=== PATIENT | male | born 1990 | race Caucasian/White ===

== ENCOUNTER 2018-04-04 16:19 | Emergency (ER) | payer MEDICAID, SELFPAY ==
[2018-04-04 16:29] VITALS: BP 157/87; PULSE 84; RESP 16; TEMP 36.5; O2SAT 96
--- NOTE | 2018-04-04 16:51 | DI.REPORT_ITS ---
SYMPTOM/DIAGNOSIS: INJURY, LACERATION, ? FX LEFT INDEX FINGER: Three views were obtained. No fracture is seen.
--- NOTE | 2018-04-04 17:19 | ED.GENADUL ---
Disposition Clinical Impression: Laceration of left index finger Disposition: HOME Condition: Good Instructions: Finger Laceration (ED), Care For Your Stitches (ED) Additional Instructions: Please take Tylenol Motrin for pain. Please keep the area dry for the next 24-48 hours. After this he can scrub it gently with soap and water. Please keep it bandaged at all times otherwise the sutures will come undone. Please return here or to a primary care provider whom we are providing for you for removal of your sutures in the next 7-10 days. If you are unable to follow-up with a family doctor please return here for suture removal. If you notice any worsening of your symptoms, or any new symptoms such as redness in your finger, swelling, drainage, vomiting, diarrhea, fever, chills, shortness of breath, chest pain, numbness, weakness, or fainting , please return immediately to the emergency department for reevaluation. Please follow up with your primary care provider as soon as possible for reassessment and reevaluation. As always, it was a pleasure participating in your medical care today. Medical Decision Making - Medical Decision Making This is a pleasant 27-year-old male who presents with laceration from sheet metal. He developed a small 1 cm x 1 cm V-shaped laceration of his left nondominant index finger. His tetanus has been updated here. No evidence of tendon involvement on exam. X-ray demonstrates no evidence of fracture. The patient's hand was irrigated with copious amounts of normal saline, anesthetized with 1% lidocaine 3 cc total, and then scrubbed vigorously with chlorhexidine scrub. No tendon involvement was noted. The area was then sutured with 3 simple interrupted 4-0 nylon sutures. Patient tolerated this well with good wound edge reapproximation and excellent hemostasis. With a negative x-ray, laceration repair, no signs of fracture I feel he can be safely discharged home. We discussed red flags which returned the patient understands. I have extensively reviewed the treatment plan and discharge instructions with the patient. I have addressed all patient concerns at this time. The patient was made aware of what symptoms to monitor for that would warrant a return to the emergency department. Discussed the plan with the patient, they demonstrate verbal understanding and agreement with our assessment and plan at this time. History of Present Illness - General Chief complaint: Laceration Stated complaint: BLEEDING,CUT PART OF FINGER OFF Time Seen by Provider: 04/04/18 16:50 - History of Present Illness Initial comments: This is a 27-year-old male with no past medical history whose tetanus is not up-to-date who presents for laceration of the hand. Patient is right-hand dominant. He was working on a roof when the wind caught some sheet metal and he put his left hand in the way to protect his face sheet metal hit his left index finger and caused a small laceration. Patient immediately came to the ER for evaluation. He had pain in the proximal component of his phalanges, aside for the laceration itself is no other complaint. He has been able to move it well without any difficulty for both flexion and extension. He denies any radiation of the pain, any pain in his wrist or arm. He does have a history of multiple scrapes, cuts, and lacerations on the hand which has led to a lack of sensation on the lateral aspect of the index finger as well as the tip of the index finger. He denies any new numbness or tingling aside for this chronic lack of sensation. Patient denies any IV or illicit drug use currently, he denies any significant recent surgeries, he has no other complaints at this time. He denies a pertinent family history. - Related Data Albuterol [Proair Hfa] 2 puff IH PRN PRN 09/18/13 Ibuprofen 600 mg PO QID PRN #20 tablet 02/06/18 Methadone Liquid [Dolophine Liquid] 77 mg PO DAILY 02/06/18 Allergies Allergy/AdvReac Type Severity Reaction Status Date / Time No Known Allergies Allergy Unverified 04/04/18 16:33 Review of Systems Other: 10 point review of systems was performed, pertinent positives and negatives are noted in the history of present illness. Past Medical History - Past Medical History ADHD, IV drug use Surgical history: herniorraphy - Social History Drug use: IVDA General Exam - Other Other exam information: 1.Const: Well-nourished, Well-developed, appearing stated age 2.Eyes: PERRL, no conjunctival injection, and symmetrical lids. 3.ENT: Atraumatic external nose and ears. Moist MM. Neck: Symmetric, trachea midline, No thyromegaly. 4.CVS: +S1/S2, No murmurs or gallops. Peripheral pulses 2+ and equal in all extremities. Brisk capillary refill in all extremities. 5.RESP: Unlabored respiratory effort. Clear to auscultation bilaterally. No wheezes rales or rhonchi 6.GI: Soft, Nontender/Nondistended, No hepatosplenomegaly. No guarding or rebound. 7.MSK: Normocephalic/Atraumatic, Extremities w/o deformity or ttp No cyanosis or clubbing, Normal movement of all extremities 8.Skin: Patient demonstrates a small V-shaped laceration with each arm of the laceration being 1 cm. It is located on the dorsal aspect of the index finger on the left hand. The patient is able to flex and extend the finger well at all components of the phalanges and metacarpals. With wound irrigation there is no evidence of tendon involvement. Mild tenderness over the metacarpal phalangeal joint. Sensation does appear intact on the medial aspect of the index finger, but no evidence on the lateral or the tip. The patient states that this is chronic from his old cuts. Physical exam does demonstrate evidence of scars over the areas in which the nerve would normally lie. No other abnormalities. Brisk capillary refill. 9.Neuro: human resources operations manager II-XII grossly intact. Sensation grossly intact, no focal neurologic deficits. 10.Psych: (AAO) x3. Appropriate mood and affect Course Vital Signs - 24 hr 04/04/18 16:29 Temperature 36.5 C Pulse 84 Respiratory 16 Rate Blood Pressure 157/87 Pulse Oximetry 96
--- NOTE | 2018-04-04 17:43 | DI.VRAD_ITS ---
EXAM: XR Left Finger(s), 2 or More Views CLINICAL HISTORY: 27 years old, male; Signs and symptoms; Other: Left index, concern for FX TECHNIQUE: Frontal, lateral and oblique views of finger(s) of the left hand. COMPARISON: CR - LEFT HAND LIMITED 02/11/2013 10:28 PM FINDINGS: Bones/joints: Probable nutrient vessel foramen coursing longitudinally along the volar cortex of the distal phalanx seen on the lateral examination. Correlate clinically to completely exclude a nondisplaced fracture. No displaced fracture or dislocation identified. Soft tissues: Swelling of the index finger soft tissues. No radiopaque foreign body. IMPRESSION: 1. No displaced fracture or dislocation. 2. Probable nutrient vessel foramen coursing longitudinally along the volar cortex of the distal phalanx seen on the lateral examination. Correlate clinically to completely exclude a nondisplaced fracture. Dictated and Authenticated by: Al Villegas MD. Ordering:CHARLES ATKINSON MD
--- NOTE | 2018-04-06 13:43 | PDOC.ERCMPRO ---
Care Management Progress Note 04/06-Patient does not need an ED f/u. Needs to establish primary care. Dr. Kellogg account retention representative. Referral faxed to MARYAM altamirano.
--- NOTE | 2018-04-06 13:45 | CMPROGNOTE_ITS ---
Care Management Progress Note 04/06-Patient does not need an ED f/u. Needs to establish primary care. Dr. Kellogg music rehabilitation therapist. Referral faxed to MARYAM altamirano.
--- NOTE | 2018-04-06 14:04 | PDOC.ERCMPRO ---
Care Management Progress Note Kishan is being admitted to the floor. Discussed with Mildred, Clinical Coordinator that Kishan has been appropriate and that he needs his phone and etcher photoengraving to continue with his disability. Kishan has been appropriate in the ED. Taking his medications and eating his meals. Kishan has been easily redirected and he does have licensed one on one supervision. Care Plan Kishan Suresh 04/06/18 Involuntary Admission (EE) 1. Suicide Precautions 2. Patient can remain in personal clothing 3. No other Personal belongings in room 4. Please follow the policy on the admitted behavioral health patient 5. Patient may have cell phone in room, and phone etcher photoengraving when needed 6. No visitors at this time 7. Finger foods only. No utensils at all 8. Comfort bath system for hygiene 9. Supervised bathroom privileges 10. May have television 11. One on one supervision by a VENEER MATCHER, ASSISTANT COMMISSIONER, groundwater monitoring technician. Please adhere to this care plan. If any changes, questions, or issues, please notify [facility] completion engineer Backhaul Driver at [phone], [facility] Supervisor Warping Department at [phone]. Any changes to care plan, must have huddle and new care plan must be written.
--- NOTE | 2018-04-06 14:23 | CMPROGNOTE_ITS ---
Care Management Progress Note Kishan is being admitted to the floor. Discussed with Mildred, Clinical Coordinator that Kishan has been appropriate and that he needs his phone and terminal makeup operator to continue with his disability. Kishan has been appropriate in the ED. Taking his medications and eating his meals. Kishan has been easily redirected and he does have licensed one on one supervision. Care Plan Kishan Suresh 04/06/18 Involuntary Admission (EE) 1. Suicide Precautions 2. Patient can remain in personal clothing 3. No other Personal belongings in room 4. Please follow the policy on the admitted behavioral health patient 5. Patient may have cell phone in room, and phone terminal makeup operator when needed 6. No visitors at this time 7. Finger foods only. No utensils at all 8. Comfort bath system for hygiene 9. Supervised bathroom privileges 10. May have television 11. One on one supervision by a FLYING SHEAR OPERATOR, WEIGHER AND CRUSHER, solid waste collection worker. Please adhere to this care plan. If any changes, questions, or issues, please notify [facility] directional driller Business Development Engineer at [phone], [facility] Powersaw Supervisor at [phone]. Any changes to care plan, must have huddle and new care plan must be written.
== END 2018-04-04 17:44 | disposition home or self-care (01) ==
LOC: ER 06-17 18:18
PROVIDERS: Emergency Provider Student in an Organized Health Care Education/Training Program
DX: S61.211A Laceration without foreign body of left index finger without damage to nail, initial encounter (principal); W26.8XXA Contact with other sharp object(s), not elsewhere classified, initial encounter
CPT/HCPCS: 12001; 90471; 73140

== ENCOUNTER 2018-06-10 22:13 | Emergency (ER) | payer MEDICAID, SELFPAY ==
[2018-06-10 22:20] VITALS: BP 166/94; PULSE 76; RESP 20; TEMP 37.1; O2SAT 96
--- NOTE | 2018-06-10 22:44 | W.ED.GENAD ---
Discharge Plan Disposition Patient Disposition: HOME Condition: Improving Discharge Details Chief Complaint: FacialProb Clinical Impression: Odontalgia Primary Care Provider: NONE,NONE ED Provider: Toi Elkins Home Meds and New Rx's Prescriptions: New penicillin V potassium 500 mg tablet 500 mg PO TID 10 Days Qty: 30 RF: 0 Continue albuterol sulfate [ProAir HFA] 200 PUFF HFA aerosol inhaler 2 puff Inhalation PRN PRNRF: 0 ibuprofen 600 MG tablet 800 mg PO QID PRN (Reason: Pain) RF: 0 methadone 10 MG/ML concentrate 77 mg PO DAILY RF: 0 Discharge Instructions Instructions: Toothache (ED) Additional Instructions: May use Tylenol and/or ibuprofen as needed for pain. You are given a single Percocet in the emergency department for severe pain. Take penicillin as prescribed. Follow-up with dentistry, see enclosed references Medical Decision Making 27-year-old male with numerous dental caries presents with acute right odontalgia. He is tender to percussion of tooth #2 and 3. No evidence of fluctuant mass or facial swelling. Patient consented for received superior alveolar dental block with some improvement. Given a single Percocet for severe pain and will place him on a course of penicillin with outpatient dentistry follow-up HPI General Mode of arrival: ambulatory. Date/Time Provider Initiated Documentation: 06/10/18 22:35. Limitations to Documentation: no limitations. Information obtained by: patient. History of Present Illness described as moderate and severe, Quality is described as aching, and is localized to the mouth and right. Patient reports no radiation. Patient started experiencing this hour(s) and it has been constant. No relieving factors improve symptom(s), No exacerbating factors reported . Patient notes no other symptoms.. Related Data Home Medications Medication Instructions Recorded Confirmed albuterol sulfate [ProAir HFA] 2 puff INHALATION PRN PRN 09/18/13 06/10/18 methadone 77 mg PO DAILY 02/06/18 06/10/18 ibuprofen 800 mg PO QID PRN 06/10/18 06/10/18 penicillin V potassium 500 mg PO TID 10 Days #30 tab 06/10/18 Previous Rx's Medication Instructions Recorded penicillin V potassium 500 mg PO TID 10 Days #30 tab 06/10/18 Allergies Allergy/AdvReac Type Severity Reaction Status Date / Time No Known Allergies Allergy Unverified 06/10/18 22:23 General Stated Complaint: FacialProb JAVIER: 3 Review of Systems Review of Systems 6 systems reviewed and otherwise neg PFSH Social History Smoking/Tobacco Use Status: Current every day Exam Narrative Exam Narrative: GEN: awake, alert, oriented 3. Pleasant, well groomed, interactive, anxious. HEAD: Normocephalic, atraumatic ENT: Mucous membranes moist, oropharynx with numerous dental caries, tenderness to percussion of teeth #2 and 3. NECK: Full ROM, no GINI, no menigismus CHEST/RESP: Nontender, clear to auscultation bilateral, no wheeze/rhonchi/rales CARDIOVASCULAR: RRR, no murmur, rub gómez. 2+ Rad pulse bilateral Neuro: Grossly normal neurologic exam, conversant, interactive. Psych: Speech fluent, thoughts congruent, affect normal Course Vital Signs Temperature 37.1 C 06/10/18 22:20 Pulse 76 06/10/18 22:20 Respiratory Rate 20 06/10/18 22:20 Blood Pressure 166/94 H 06/10/18 22:20 Pulse Oximetry 96 06/10/18 22:20 Temperature 37.1 C 06/10/18 22:20 Temperature Source Temporal Artery Scan 06/10/18 22:20 Pulse 76 06/10/18 22:20 Respiratory Rate 20 06/10/18 22:20 Respiratory Effort Non-Labored 06/10/18 22:20 Blood Pressure 166/94 H 06/10/18 22:20 Pulse Oximetry 96 06/10/18 22:20 Oxygen Delivery Method Room Air 06/10/18 22:20 Oxygen Flow Rate 0 06/10/18 22:20 Pain Level 10 06/10/18 22:24 Procedures Other Description: Right superior alveolar dental block
--- NOTE | 2018-06-10 22:48 | ED.GENADUL_ITS ---
Discharge Plan Disposition Patient Disposition: HOME Condition: Improving Discharge Details Chief Complaint: FacialProb Clinical Impression: Odontalgia Primary Care Provider: NONE,NONE ED Provider: Toi Elkins Home Meds and New Rx's Prescriptions: New penicillin V potassium 500 mg tablet 500 mg PO TID 10 Days Qty: 30 RF: 0 Continue albuterol sulfate [ProAir HFA] 200 PUFF HFA aerosol inhaler 2 puff Inhalation PRN PRNRF: 0 ibuprofen 600 MG tablet 800 mg PO QID PRN (Reason: Pain) RF: 0 methadone 10 MG/ML concentrate 77 mg PO DAILY RF: 0 Discharge Instructions Instructions: Toothache (ED) Additional Instructions: May use Tylenol and/or ibuprofen as needed for pain. You are given a single Percocet in the emergency department for severe pain. Take penicillin as prescribed. Follow-up with dentistry, see enclosed references Medical Decision Making 27-year-old male with numerous dental caries presents with acute right odontalgia. He is tender to percussion of tooth #2 and 3. No evidence of fluctuant mass or facial swelling. Patient consented for received superior alveolar dental block with some improvement. Given a single Percocet for severe pain and will place him on a course of penicillin with outpatient dentistry follow-up HPI General Mode of arrival: ambulatory . Date/Time Provider Initiated Documentation: 06/10/18 22:35 . Limitations to Documentation: no limitations . Information obtained by: patient . History of Present Illness described as moderate and severe, Quality is described as aching, and is localized to the mouth and right. Patient reports no radiation. Patient started experiencing this hour(s) and it has been constant. No relieving factors improve symptom(s), No exacerbating factors reported . Patient notes no other symptoms.. Related Data Home Medications Medication Instructions Recorded Confirmed albuterol sulfate [ProAir HFA] 2 puff INHALATION PRN PRN 09/18/13 06/10/18 methadone 77 mg PO DAILY 02/06/18 06/10/18 ibuprofen 800 mg PO QID PRN 06/10/18 06/10/18 penicillin V potassium 500 mg PO TID 10 Days #30 tab 06/10/18 Previous Rx's Medication Instructions Recorded penicillin V potassium 500 mg PO TID 10 Days #30 tab 06/10/18 Allergies Allergy/AdvReac Type Severity Reaction Status Date / Time No Known Allergies Allergy Unverified 06/10/18 22:23 General Stated Complaint: FacialProb JAVIER: 3 Review of Systems Review of Systems 6 systems reviewed and otherwise neg PFSH Social History Smoking/Tobacco Use Status: Current every day Exam Narrative Exam Narrative: GEN: awake, alert, oriented 3. Pleasant, well groomed, interactive, anxious. HEAD: Normocephalic, atraumatic ENT: Mucous membranes moist, oropharynx with numerous dental caries, tenderness to percussion of teeth #2 and 3. NECK: Full ROM, no GINI, no menigismus CHEST/RESP: Nontender, clear to auscultation bilateral, no wheeze/rhonchi/rales CARDIOVASCULAR: RRR, no murmur, rub gómez. 2+ Rad pulse bilateral Neuro: Grossly normal neurologic exam, conversant, interactive. Psych: Speech fluent, thoughts congruent, affect normal Course Vital Signs Temperature 37.1 C 06/10/18 22:20 Pulse 76 06/10/18 22:20 Respiratory Rate 20 06/10/18 22:20 Blood Pressure 166/94 H 06/10/18 22:20 Pulse Oximetry 96 06/10/18 22:20 Temperature 37.1 C 06/10/18 22:20 Temperature Source Temporal Artery Scan 06/10/18 22:20 Pulse 76 06/10/18 22:20 Respiratory Rate 20 06/10/18 22:20 Respiratory Effort Non-Labored 06/10/18 22:20 Blood Pressure 166/94 H 06/10/18 22:20 Pulse Oximetry 96 06/10/18 22:20 Oxygen Delivery Method Room Air 06/10/18 22:20 Oxygen Flow Rate 0 06/10/18 22:20 Pain Level 10 06/10/18 22:24 Procedures Other Description: Right superior alveolar dental block
[2018-06-10] MEDS: oxyCODONE 5 mg/Acetaminophen 325 mg TAB 1 TAB PO (22:49)
[2018-06-10] MEDS: Penicillin V POTASSIUM 500 MG TAB 1000 MG PO (22:49)
== END 2018-06-10 22:54 | disposition home or self-care (01) ==
LOC: ER 22:56
PROVIDERS: Emergency Provider Emergency Medicine
DX: R68.84 Jaw pain (principal)
CPT/HCPCS: 64402

== ENCOUNTER 2018-09-17 08:55 | Emergency (ER) | payer MEDICAID, SELFPAY ==
[2018-09-17 09:04] VITALS: BP 147/65; PULSE 66; RESP 16; TEMP 37.3; O2SAT 97
--- NOTE | 2018-09-17 09:14 | W.ED.GENAD ---
Discharge Plan Disposition Patient Disposition: HOME Condition: Stable Discharge Details Chief Complaint: DentalOral Clinical Impression: Odontalgia Primary Care Provider: None,None ED Provider: Toi Elkins Home Meds and New Rx's Prescriptions: New penicillin V potassium 500 mg tablet 500 mg PO TID 10 Days Qty: 30 RF: 0 Continued ProAir HFA 200 PUFF HFA aerosol inhaler 2 puff Inhalation PRN PRNRF: 0 ibuprofen 600 MG tablet 400 mg PO QID PRN (Reason: Pain) RF: 0 methadone 10 MG/ML concentrate 78 mg PO DAILY RF: 0 acetaminophen [Tylenol Extra Strength] 500 mg Tablet 500 mg PO PRN PRNRF: 0 Discharge Instructions Instructions: Toothache (ED) Additional Instructions: Follow-up with dentistry as you have planned. I have included extra dental resources for you. Return for swelling, fever, any other acute concerns. Medical Decision Making 27-year-old male presents with right upper molar pain and history of dental caries with plan to follow-up with dentistry. He does not have evidence of fluctuant abscess. I will place him on a course of penicillin he understands he needs to follow-up with dentistry. Return precautions to the ER discussed HPI General Mode of arrival: ambulatory. Date/Time Provider Initiated Documentation: 09/17/18 09:06. Limitations to Documentation: no limitations. Information obtained by: patient. History of Present Illness 27 year old M presents to the emergency department with the chief complaint of Right first molar pain over 2 days, described as moderate and similar to prior episodes, Quality is described as aching, and is localized to the mouth and right. Patient reports no radiation. Patient started experiencing this day(s) and it has been constant. No relieving factors improve symptom(s), No exacerbating factors reported . Patient notes no other symptoms.. Patient did receive the following treatments prior to arrival, none Related Data Home Medications Medication Instructions Recorded Confirmed ProAir HFA 2 puff INHALATION PRN PRN 09/18/13 09/17/18 methadone 78 mg PO DAILY 02/06/18 09/17/18 ibuprofen 400 mg PO QID PRN 06/10/18 09/17/18 acetaminophen [Tylenol Extra 500 mg PO PRN PRN 09/17/18 09/17/18 Strength] penicillin V potassium 500 mg PO TID 10 Days #30 tab 09/17/18 Previous Rx's Medication Instructions Recorded penicillin V potassium 500 mg PO TID 10 Days #30 tab 09/17/18 Allergies Allergy/AdvReac Type Severity Reaction Status Date / Time No Known Allergies Allergy Unverified 09/17/18 09:08 General Stated Complaint: DentalOral JAVIER: 4 Review of Systems Review of Systems For systems reviewed and otherwise neg [facility] Social History Smoking/Tobacco Use Status: Current every day Exam Narrative Exam Narrative: GEN: awake, alert, oriented 3. Pleasant, well groomed, interactive. HEAD: Normocephalic, atraumatic ENT: Mucous membranes moist, oropharynx with numerous dental caries, erosions of right upper first molar and tenderness to percussion without surrounding lingual or buccal fluctuance, tympanic membranes and external ear exam unremarkable EYES: PERRL, EOMI NECK: Full ROM, no GINI, no menigismus CHEST/RESP: Nontender, clear to auscultation bilateral, no wheeze/rhonchi/rales CARDIOVASCULAR: RRR, no murmur, rub gómez. 2+ Rad pulse bilateral Neuro: Grossly normal neurologic exam, conversant, interactive. Psych: Speech fluent, thoughts congruent, affect normal Course Vital Signs Temperature 37.3 C 09/17/18 09:04 Pulse 66 09/17/18 09:04 Respiratory Rate 16 09/17/18 09:04 Blood Pressure 147/65 H 09/17/18 09:04 Pulse Oximetry 97 09/17/18 09:04 Temperature 37.3 C 09/17/18 09:04 Temperature Source Skin 09/17/18 09:04 Pulse 66 09/17/18 09:04 Respiratory Rate 16 09/17/18 09:04 Respiratory Effort 09/17/18 09:10 Blood Pressure 147/65 H 09/17/18 09:04 Blood Pressure Position Sitting 09/17/18 09:04 Pulse Oximetry 97 09/17/18 09:04 Oxygen Delivery Method Room Air 09/17/18 09:04 Oxygen Flow Rate 0 09/17/18 09:04 Pain Level 6 09/17/18 09:04
--- NOTE | 2018-09-18 09:38 | PDOC.ERCMPRO ---
Care Management Progress Note /-Dr. Elkins requested assistance with a dentistry f/u for recurring dental infections as soon as possible. This CM tried calling the patient multiple times and the number on file is not a good number.
== END 2018-09-17 09:33 | disposition home or self-care (01) ==
LOC: ER 09:23
PROVIDERS: Emergency Provider Emergency Medicine
DX: R68.84 Jaw pain (principal)
CPT/HCPCS: 99283

== ENCOUNTER 2018-09-20 10:28 | Emergency (ER) | payer MEDICAID, SELFPAY ==
[2018-09-20 10:36] VITALS: BP 135/89; PULSE 95; RESP 20; TEMP 36.8
--- NOTE | 2018-09-20 10:54 | ED.GENADUL_ITS ---
Discharge Plan Disposition Patient Disposition: HOME Condition: Good Discharge Details Chief Complaint: DentalOral Clinical Impression: Pain, dental Primary Care Provider: None,None ED Provider: Varun Morales Home Meds and New Rx's Prescriptions: New amoxicillin-pot clavulanate [Augmentin] 875-125 mg tablet 1 tab PO BID Qty: 14 RF: 0 Discontinued penicillin V potassium 500 mg tablet 500 mg PO TID 10 Days Qty: 30 RF: 0 No Action ProAir HFA 200 PUFF HFA aerosol inhaler 2 puff Inhalation PRN PRNRF: 0 ibuprofen 600 MG tablet 400 mg PO QID PRN (Reason: Pain) RF: 0 methadone 10 MG/ML concentrate 78 mg PO DAILY RF: 0 acetaminophen [Tylenol Extra Strength] 500 mg Tablet 500 mg PO PRN PRNRF: 0 Discharge Instructions Instructions: Toothache (ED) Additional Instructions: Please follow-up with your dentist as directed. Please take 1000 mg of Tylenol every 6 hours, and 800 mg of ibuprofen every 6 hours. Please stop taking the penicillin and take the new antibiotic as directed. if you notice any worsening of your symptoms, or any new symptoms such as vomiting, diarrhea, fever, chills, shortness of breath, chest pain, numbness, weakness, or fainting , please return immediately to the emergency department for reevaluation. Please follow up with your primary care provider as soon as possible for reassessment and reevaluation. As always, it was a pleasure participating in your medical care today. Discharge Data Discharge Date/Time-TO BE ENTERED AT DEPARTURE: 09/20/18 11:10 Medical Decision Making This is a pleasant 27-year-old male with a history of notable dental caries and methadone use who presents for right upper dental pain. He was seen here 3 days ago, no evidence of abscess N, refused dental block, and was started on penicillin. He has not yet followed up with his dentist. His pain is persisted and slightly worsened. Physical exam demonstrates reassuring vital signs, no evidence of abscess, no evidence of trismus, no signs of meningitis clinically. We will advance the patient's antibiotic coverage to Augmentin, he is still refusing dental block at this time. Will prescribe maximum doses of Tylenol and Motrin for home use. I also made it clear that the definitive management is dental care, the patient understands. I have extensively reviewed the treatment plan and discharge instructions with the patient and their family. I have addressed all patient concerns at this time. The patient and family was made aware of what symptoms to monitor for that would warrant a return to the emergency department. Discussed the plan with the patient and family, they demonstrate verbal understanding and agreement with our assessment and plan at this time. HPI General Date/Time Provider Initiated Documentation: 09/20/18 10:43 . HPI Narrative: This is a 27-year-old male with a past medical history of dental caries, methadone use, who presents today for evaluation of dental pain. The patient states that for the last 3 days he has had tooth pain, worse on the top right. 3 days ago he was seen and assessed, no evidence of abscess at that time, he was started on penicillin with instructions for dental follow-up. He refused a dental block at that time. He states that he has been taking the antibiotic but the pain is persisted and slightly worsened. It is in the top right area of his teeth, however he does feel some associated pain in both of his jaws now. He is able to still eat and drink well. He is taking Tylenol Motrin at home. He has contacted some dental offices but does not have a follow-up appointment yet. He denies any discharge, headache, neck pain, or any other complaints at this time. No other modifying factors. He denies current IV or illicit drug use or recent surgeries Related Data Home Medications Medication Instructions Recorded Confirmed ProAir HFA 2 puff INHALATION PRN PRN 09/18/13 09/20/18 methadone 78 mg PO DAILY 02/06/18 09/20/18 ibuprofen 400 mg PO QID PRN 06/10/18 09/20/18 acetaminophen [Tylenol Extra 500 mg PO PRN PRN 09/17/18 09/20/18 Strength] amoxicillin-pot clavulanate 1 tab PO BID #14 tab 09/20/18 [Augmentin] Previous Rx's Medication Instructions Recorded amoxicillin-pot clavulanate 1 tab PO BID #14 tab 09/20/18 [Augmentin] Allergies Allergy/AdvReac Type Severity Reaction Status Date / Time No Known Allergies Allergy Unverified 09/17/18 09:08 General Stated Complaint: DentalOral JAVIER: 4 Review of Systems Review of Systems All systems reviewed & are unremarkable except as noted in HPI and below PFSH Social History Smoking/Tobacco Use Status: Current every day Exam Narrative Exam Narrative: 1.Const: Well-nourished, Well-developed, appearing stated age 2.Eyes: PERRL, no conjunctival injection, and symmetrical lids. 3.ENT: Atraumatic external nose and ears. Moist MM. Neck: Symmetric, trachea midline, No thyromegaly. Patient demonstrates good movement of cervical neck. There is no nuchal rigidity, no nuchal tenderness. Patient is able to flex the neck without any difficulty or significant pain. Negative Kernig's and Brudzinski sign. Notable dental caries throughout, no evidence of periapical or dental abscess on exam. No significant swelling. Jaw closes well, no signs of trismus. Minimal tenderness over TMJ joint bilaterally. 4.CVS: +S1/S2, No murmurs or gallops. Peripheral pulses 2+ and equal in all extremities. Brisk capillary refill in all extremities. 5.RESP: Unlabored respiratory effort. Clear to auscultation bilaterally. No wheezes rales or rhonchi 6.GI: Soft, Nontender/Nondistended, No hepatosplenomegaly. No guarding or rebound. 7.MSK: Normocephalic/Atraumatic, Extremities w/o deformity or ttp No cyanosis or clubbing, Normal movement of all extremities 8.Skin: Warm, Dry. No rashes or lesions. 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 Sensation grossly intact, no focal neurologic deficits. 10.Psych: (AAO) x3. Appropriate mood and affect Course Vital Signs Temperature 36.8 C 09/20/18 10:36 Pulse 95 H 09/20/18 10:36 Respiratory Rate 09/20/18 10:36 Blood Pressure 135/89 09/20/18 10:36 Temperature 36.8 C 09/20/18 10:36 Temperature Source Temporal Artery Scan 09/20/18 10:36 Pulse 95 H 09/20/18 10:36 Respiratory Rate 20 09/20/18 10:36 Respiratory Effort Non-Labored 09/20/18 10:36 Blood Pressure 135/89 09/20/18 10:36 Oxygen Delivery Method Room Air 09/20/18 10:36 Oxygen Flow Rate 0 02/06/19 10:36 Pain Level 10 09/20/18 10:36
--- NOTE | 2018-09-20 13:40 | PDOC.ERCMPRO ---
Care Management Progress Note 09/20-Varun was here yesterday for dental. Unable to reach him as his cell phone has been turned off. He gave me his girlfriends number, to add to chart. Varun has not contacted a dentist yet. He does not have a PCP. Discussed local practices and he is going to go over to [facility] so he can be established there. Varun will reach out to [facility] as they have a sliding scale.
--- NOTE | 2018-09-20 13:44 | CMPROGNOTE_ITS ---
Care Management Progress Note 09/20-Varun was here yesterday for dental. Unable to reach him as his cell phone has been turned off. He gave me his girlfriends number, to add to chart. Varun has not contacted a dentist yet. He does not have a PCP. Discussed local practices and he is going to go over to [facility] so he can be established there. Varun will reach out to [facility] as they have a sliding scale.
== END 2018-09-20 11:10 | disposition home or self-care (01) ==
PROVIDERS: Emergency Provider Student in an Organized Health Care Education/Training Program
DX: K08.89 Other specified disorders of teeth and supporting structures (principal)
CPT/HCPCS: 99283

== ENCOUNTER 2018-10-02 06:54 | Emergency (ER) | payer MEDICAID, SELFPAY ==
[2018-10-02 07:01] VITALS: BP 146/71; PULSE 73; RESP 16; TEMP 37.2; O2SAT 97
--- NOTE | 2018-10-02 07:15 | ED.GENADUL_ITS ---
Medical Decision Making This is a 27-year-old male who presents for evaluation of left upper dental pain and mild dysuria. He has a history of severe dental caries, he has a scheduled dental appointment later this week. He was seen here roughly 2 weeks ago. Started on Augmentin for right upper dental pain, his symptoms resolved with the antibiotic. He has been taking Tylenol and Motrin. He is on methadone. Physical exam demonstrates no evidence of new abscess on the left, no trismus or signs of airway compromise. No significant swelling. I do think it is reasonable to start the antibiotic Augmentin again for this new left upper dental pain. For his dysuria it is been present for the last few weeks. He denies any history of STDs. No evidence of hematuria, or urethral discharge on exam. No testicular tenderness. Patient does not want any prophylactic treatment for gonorrhea or chlamydia. We will evaluate for signs of infection on UA. Will start Augmentin for his dental pain. Will recommend continue Tylenol Motrin. The patient is refusing a dental block for pain control at this time. HPI General Date/Time Provider Initiated Documentation: 10/02/18 07:04 . HPI Narrative: This is a 27-year-old male with a past medical history of hepatitis C, poor dentition, methadone use, and history of acute drug abuse in the past, who presents today for dental pain. Patient has a history of dental caries and dental infections. He was actually here roughly 1-2 weeks ago for the same complaint except is in the right teeth. He took Augmentin as directed and his pain resolved. He has a scheduled dental appointment later this week. Patient has states that he has left upper dental pain. He has been taking Tylenol and Motrin with no significant improvement. He denies any fever, chills, jaw pain, difficulty eating. Patient does also admit to some mild dysuria and increased urinary frequency for the last 3-4 weeks. He denies any flank pain, fever, chills, nausea, vomiting, diarrhea.. He does admit to a previous right inguinal surgical repair with mesh, but denies any significant or severe pain there. Patient denies any other complaints, penile discharge, testicular pain or other complaints. He denies any history of STDs Related Data Home Medications Medication Instructions Recorded Confirmed ProAir HFA 2 puff INHALATION PRN PRN 09/18/13 10/02/18 methadone 78 mg PO DAILY 02/06/18 10/02/18 ibuprofen 800 mg PO QID PRN 06/10/18 10/02/18 acetaminophen [Tylenol Extra 500 mg PO PRN PRN 09/17/18 10/02/18 Strength] amoxicillin-pot clavulanate 1 tab PO BID #14 tab 09/20/18 10/02/18 [Augmentin] amoxicillin-pot clavulanate 1 tab PO BID #20 tab 10/02/18 [Augmentin] Previous Rx's Medication Instructions Recorded amoxicillin-pot clavulanate 1 tab PO BID #14 tab 09/20/18 [Augmentin] amoxicillin-pot clavulanate 1 tab PO BID #20 tab 10/02/18 [Augmentin] Allergies Allergy/AdvReac Type Severity Reaction Status Date / Time No Known Allergies Allergy Unverified 10/02/18 07:09 General Stated Complaint: DentalOral JAVIER: 4 Review of Systems Review of Systems All systems reviewed & are unremarkable except as noted in HPI and below PFSH Social History Smoking and Tabacco status: Current every day Exam Narrative Exam Narrative: 1.Const: Well-nourished, Well-developed, appearing stated age 2.Eyes: PERRL, no conjunctival injection, and symmetrical lids. 3.ENT: Atraumatic external nose and ears. Moist MM. Neck: Symmetric, trachea midline, No thyromegaly. Exam demonstrates no significant swelling of his teeth or gums. Notable dental caries throughout, no evidence of dental abscess. No trismus. No difficulty swallowing, no signs of airway compromise. 4.CVS: +S1/S2, No murmurs or gallops. Peripheral pulses 2+ and equal in all extremities. Brisk capillary refill in all extremities. 5.RESP: Unlabored respiratory effort. Clear to auscultation bilaterally. No wheezes rales or rhonchi 6.GI: Soft, Nontender/Nondistended, No hepatosplenomegaly. No guarding or rebound. Genital exam demonstrates normally descended testicles, circumcised penis, no urethral discharge. No penile shaft tenderness. Normal cremasteric reflex bilaterally 7.MSK: Normocephalic/Atraumatic, Extremities w/o deformity or ttp No cyanosis or clubbing, Normal movement of all extremities 8.Skin: Warm, Dry. No rashes or lesions. 9.Neuro: lockstitch cup setter II-XII grossly intact. Sensation grossly intact, no focal neurologic deficits. 10.Psych: (AAO) x3. Appropriate mood and affect Course Vital Signs Temperature 37.2 C 10/02/18 07:01 Pulse 73 10/02/18 07:01 Respiratory Rate 16 10/02/18 07:01 Blood Pressure 146/71 H 10/02/18 07:01 Pulse Oximetry 97 10/02/18 07:01 Temperature 37.2 C 10/02/18 07:01 Temperature Source Temporal Artery Scan 10/02/18 07:01 Pulse 73 10/02/18 07:01 Respiratory Rate 16 10/02/18 07:01 Respiratory Effort Non-Labored 10/02/18 07:05 Blood Pressure 146/71 H 10/02/18 07:01 Blood Pressure Position Sitting 10/02/18 07:01 Pulse Oximetry 97 10/02/18 07:01 Oxygen Delivery Method Room Air 10/02/18 07:01 Oxygen Flow Rate 0 10/02/18 07:01 Pain Level 6 10/02/18 07:07
[2018-10-02 07:29] LABS: Bilirubin Negative (Negative); Blood Negative (Negative); Clarity Clear; Glucose Negative (Negative); Ketones Negative (Negative); Leukocyte Esterase Negative (Negative); Nitrite Negative (Negative); Specific Gravity 1.015 (1.005-1.025); Urobilinogen 0.2 EU/dL (Up TO 0.2)
[2018-10-02 08:15] VITALS: TEMP 36.7
[2018-10-03 14:44] LABS: Chlamydia Result Negative; GC Result Negative
--- NOTE | 2018-10-08 17:33 | NUR.NOTE ---
Nursing Note: Per Dr. Elkins I gave the patient his results of the GC/chlamydia test which was negative. Adelaide Garcia.
== END 2018-10-02 08:16 | disposition home or self-care (01) ==
PROVIDERS: Emergency Provider Student in an Organized Health Care Education/Training Program
DX: K02.9 Dental caries, unspecified (principal); K04.7 Periapical abscess without sinus; R30.0 Dysuria
CPT/HCPCS: 87491; 87591; 99283; 81003

== ENCOUNTER 2018-10-15 08:03 | Emergency (ER) | payer MEDICAID, SELFPAY ==
[2018-10-15 08:05] VITALS: BP 161/108; PULSE 66; RESP 18; TEMP 37.2; O2SAT 100
[2018-10-15] MEDS: Bupivacaine 0.5% Pres-Free 30 ML VIAL (08:13)
[2018-10-15 08:17] VITALS: BP 153/95
--- NOTE | 2018-10-15 08:22 | ED.GENADUL_ITS ---
Discharge Plan Disposition Patient Disposition: HOME Condition: Good Discharge Details Chief Complaint: DentalOral Clinical Impression: Chronic dental pain Primary Care Provider: None,None ED Provider: Varun Morales Home Meds and New Rx's Prescriptions: New acetaminophen [Mapap Extra Strength] 500 MG tablet 1,000 mg PO Q6H 5 Days Qty: 60 RF: 0 ibuprofen [Motrin IB] 200 MG tablet 800 mg PO Q6H 5 Days Qty: 80 RF: 0 Discontinued ibuprofen 600 MG tablet 800 mg PO QID PRN (Reason: Pain) RF: 0 acetaminophen [Tylenol Extra Strength] 500 mg Tablet 500 mg PO PRN PRNRF: 0 No Action albuterol sulfate [ProAir HFA] 200 PUFF HFA aerosol inhaler 2 puff Inhalation PRN PRNRF: 0 methadone 10 MG/ML concentrate 40 mg PO DAILY RF: 0 Discharge Instructions Instructions: Toothache (ED) Additional Instructions: Please continue to take 800 mg of ibuprofen every 6 hours and 1000 mg of Tylenol every 6 hours for improvement of your pain. Please follow-up with your dentist as soon as possible at your scheduled appointment if you notice any worsening of your symptoms, or any new symptoms such as vomiting, diarrhea, fever, chills, shortness of breath, chest pain, numbness, weakness, or fainting , please return immediately to the emergency department for reevaluation. Please follow up with your primary care provider as soon as possible for reassessment and reevaluation. As always, it was a pleasure participating in your medical care today. . Medical Decision Making This is a pleasant 27-year-old male with a past medical history of dental caries and methadone use who presents for evaluation of left upper dental pain. He normally refuses dental block, but today is asking for 1. He has been on antibiotic for the last 10 days and just ended his prescription about 3 days ago. He had a dental appointment this week however it recently got pushed back to 2 weeks from now. He has been taking Tylenol and Motrin without significant improvement. Methadone has not been improving his pain. Physical exam demonstrates no signs of abscess, swelling, or purulent discharge. He does show notable dental caries. Dental block was performed and the patient had near complete resolution of his symptomatology. We will recommend continuation of Tylenol and Motrin and continue close follow-up with his dentist. We discussed red flags which to return the patient understands. I do not think that there is no immediate indication for antibiotics at this time. I have extensively reviewed the treatment plan and discharge instructions with the patient. I have addressed all patient concerns at this time. The patient was made aware of what symptoms to monitor for that would warrant a return to the emergency department. Discussed the plan with the patient, they demonstrate verbal understanding and agreement with our assessment and plan at this time. Time out was taken to identify the correct patient, procedure, and site. Risks and benefits were discussed with the patient and consent was obtained. Direct pressure was held over the area prior to the procedure to reduce painful injection. 5 cc?s of Lidocaine 1% and Bupivacaine 0.25% was instilled into the left upper alveolar space over tooth 15 with a 27 gauge needle.Complete analgesia was obtained. The patient tolerated the procedure. There were no complications. HPI General Date/Time Provider Initiated Documentation: 10/15/18 08:04 . HPI Narrative: Is a pleasant 27-year-old male with a past medical history of dental caries who is scheduled to have his teeth pulled in 1-1/2 weeks, he presents today for evaluation of left upper dental pain. He is on methadone chronically and goes to the methadone clinic. He has recently been on an antibiotic, and had notable improvement of his symptoms after this. He just finished the antibiotic 4-5 days ago. Although he has had no swelling or fever or drainage she has admitted to chronic continued pain from his dental caries. He denies any trismus, difficulty swallowing or eating, headache or other complaints. He is here requesting a dental block as his dental appointment just got shifted back to its current date. He denies any other modifying factors. He has been taking Tylenol and Motrin as directed previously Related Data Home Medications Medication Instructions Recorded Confirmed albuterol sulfate [ProAir HFA] 2 puff INHALATION PRN PRN 09/18/13 10/15/18 methadone 40 mg PO DAILY 02/06/18 10/15/18 acetaminophen [Mapap Extra 1,000 mg PO Q6H 5 Days #60 tab 10/15/18 Strength] ibuprofen [Motrin Ib] 800 mg PO Q6H 5 Days #80 tab 10/15/18 Previous Rx's Medication Instructions Recorded acetaminophen [Mapap Extra 1,000 mg PO Q6H 5 Days #60 tab 03/03/19 Strength] ibuprofen [Motrin Ib] 800 mg PO Q6H 5 Days #80 tab 10/15/18 Allergies Allergy/AdvReac Type Severity Reaction Status Date / Time No Known Allergies Allergy Unverified 10/02/18 07:09 General Stated Complaint: DentalOral JAVIER: 4 Review of Systems Review of Systems All systems reviewed & are unremarkable except as noted in HPI and below PFSH Social History Smoking and Tabacco status: Current every day Exam Narrative Exam Narrative: 1.Const: Well-nourished, Well-developed, appearing stated age 2.Eyes: PERRL, no conjunctival injection, and symmetrical lids. 3.ENT: Atraumatic external nose and ears. Moist MM. Neck: Symmetric, trachea midline, No thyromegaly. Notable dental caries throughout, no evidence of dental abscess, periapical abscess, or significant swelling. No evidence of trismus or airway compromise. 4.CVS: +S1/S2, No murmurs or gallops. Peripheral pulses 2+ and equal in all extremities. Brisk capillary refill in all extremities. 5.RESP: Unlabored respiratory effort. Clear to auscultation bilaterally. No wheezes rales or rhonchi 6.GI: Soft, Nontender/Nondistended, No hepatosplenomegaly. No guarding or rebound. 7.MSK: Normocephalic/Atraumatic, Extremities w/o deformity or ttp No cyanosis or clubbing, Normal movement of all extremities 8.Skin: Warm, Dry. No rashes or lesions. 9.Neuro: aws developer II-XII grossly intact. Sensation grossly intact, no focal neurologic deficits. 10.Psych: (AAO) x3. Appropriate mood and affect Course Vital Signs Temperature 37.2 C 10/15/18 08:05 Pulse 66 10/15/18 08:05 Respiratory Rate 18 10/15/18 08:05 Blood Pressure 161/108 H 10/15/18 08:05 Pulse Oximetry 100 10/15/18 08:05 Temperature 37.2 C 10/15/18 08:05 Temperature Source Temporal Artery Scan 10/15/18 08:05 Pulse 66 10/15/18 08:05 Respiratory Rate 18 10/15/18 08:05 Respiratory Effort Non-Labored 10/15/18 08:09 Blood Pressure 161/108 H 10/15/18 08:05 Blood Pressure Position Sitting 10/15/18 08:05 Pulse Oximetry 100 10/15/18 08:05 Oxygen Delivery Method Room Air 10/15/18 08:05 Oxygen Flow Rate 0 10/15/18 08:05 Pain Level 6 10/15/18 08:10
== END 2018-10-15 08:17 | disposition home or self-care (01) ==
PROVIDERS: Emergency Provider Student in an Organized Health Care Education/Training Program
DX: R68.84 Jaw pain (principal); K08.89 Other specified disorders of teeth and supporting structures; G89.29 Other chronic pain
CPT/HCPCS: 64402; 99282

== ENCOUNTER 2018-12-02 10:12 | Emergency (ER) | payer MEDICAID, SELFPAY ==
--- NOTE | 2018-12-02 10:17 | NUR.NOTE ---
pt broke his upper right back molar approximately 2 weeks ago. 4 days ago 7/10 pain developed. pt has been atemting to go to dentist however has not been able to get in
[2018-12-02 10:18] VITALS: BP 143/93; PULSE 83; RESP 16; TEMP 37.3; O2SAT 96
--- NOTE | 2018-12-02 11:19 | ED.GENADUL_ITS ---
Discharge Plan Disposition Patient Disposition: HOME Condition: Improving Discharge Details Chief Complaint: DentalOral Clinical Impression: Pain due to dental caries Primary Care Provider: None,None ED Provider: Donavon Torres Home Meds and New Rx's Prescriptions: Continued albuterol sulfate [ProAir HFA] 200 PUFF HFA aerosol inhaler 2 puff Inhalation PRN PRNRF: 0 methadone 10 MG/ML concentrate 40 mg PO DAILY RF: 0 Discharge Instructions Instructions: Dental Caries (ED) Additional Instructions: Continue use ibuprofen and acetaminophen combination therapy as you have been doing for further pain control. It is strongly encouraged that you find a local dental provider for the definitive care of your ongoing dental problems. Feel free to return the emergency department for any swelling of your face, difficulty breathing or swallowing, or further concerns he may have. Referrals: [facility] [Provider Group] (Follow-up with local dental provider for reassessment of your condition) Discharge Data Discharge Date/Time-TO BE ENTERED AT DEPARTURE: 12/02/18 11:37 Medical Decision Making Patient presenting to the emergency department for chief complaint of dental pain. Patient states 2 weeks ago he fractured his right rear upper molar eating some chicken and since has had increasing worsening pain. Patient does report ongoing poor dentition and that he is attempting to get in with a dentist for his symptoms. Patient denies any fever chills, difficulty breathing, or other symptoms. Physical exam shows poor dentition throughout the whole oral cavity with multiple areas of tooth loss and cavities. There is no sign of Uli's angina, no airway compromise, no acute signs of infection are noted. I feel that patient's discomfort is secondary to tooth loss and decay. Given severity of pain patient was agreeable to a dental block. Timeout was performed and risk and benefit were discussed with patient verbal consent was obtained. Patient was injected with 2 mL's of 1% lidocaine mixed with 0.25% bupivacaine and this was injected into the alveolar space. Patient tolerated the procedure well with appropriate anesthetic level achieved after the procedure and no complications noted. Patient was strongly encouraged to follow-up with a local dentist for definitive care of his chronic dental issues. After discussion of diagnosis and plan of care patient has no further needs, questions, or concerns and states clear understanding to return to the emergency department for any worsening symptoms. HPI General Mode of arrival: ambulatory . Date/Time Provider Initiated Documentation: 12/02/18 10:21 . Limitations to Documentation: no limitations . Information obtained by: patient . History of Present Illness 27 year old M presents to the emergency department with the chief complaint of Dental pain, described as moderate, with intensity rated at 7. Quality is described as aching and sharp, and is localized to the mouth. Patient started experiencing this week(s) (2) and it has been constant. No relieving factors improve symptom(s), Patient notes no other symptoms.. Patient did receive the following treatments prior to arrival, NSAID Related Data Home Medications Medication Instructions Recorded Confirmed albuterol sulfate [ProAir HFA] 2 puff INHALATION PRN PRN 09/18/13 12/02/18 methadone 40 mg PO DAILY 02/06/18 12/02/18 Allergies Allergy/AdvReac Type Severity Reaction Status Date / Time No Known Allergies Allergy Unverified 12/02/18 10:21 General Stated Complaint: DentalOral JAVIER: 4 Review of Systems Constitutional Denies chills and Denies fever(s) ENT Reports as per HPI, Denies change in voice, Reports dental pain, Denies dysphagia, Denies throat swelling and Denies tongue swelling Cardiovascular Denies chest pain and Denies dyspnea Respiratory Denies dyspnea, Denies stridor and Denies wheezing Gastrointestinal Denies abdominal pain, Denies dysphagia, Denies nausea and Denies vomiting Integumentary/Breasts Denies rash Allergic/Immunologic Denies throat swelling, Denies tongue swelling and Denies wheezing [facility] Social History Smoking/Tobacco Use Status: Current every day Tobacco Type: cigarettes Alcohol Intake: former Drug use: Daily Substance use type: marijuana Do you feel safe at home: Yes Do you feel safe in your relationship?: Yes Exam Const General: cooperative Orientation: alert, awake and oriented x3 Limitations: mental status not altered [facility] Head: normal to inspection, normocephalic and atraumatic Ears: hearing grossly normal bilaterally, normal mastoids bilaterally and no periauricular adenopathy General nose exam: external nose normal Mouth: oropharynx normal, no drooling, no muffled voice, normal tongue and no trismus Teeth and gingiva: caries, poor dentition and other (Partially fractured tooth # 2) Throat: posterior oropharynx normal, tonsils normal and uvula midline Eyes General: appearance normal, both eyes and all related structures Pupils: PERRL Neck Neck: normal visual inspection, full ROM, no lymphadenopathy, no meningeal signs, trachea midline, supple, no anterior neck swelling and no midline deformity Resp Effort & Inspection: normal respiratory effort and able to speak in complete sentences Course Vital Signs Temperature 37.3 C 12/02/18 10:18 Pulse 83 12/02/18 10:18 Respiratory Rate 16 12/02/18 10:18 Blood Pressure 143/93 H 12/02/18 10:18 Pulse Oximetry 96 12/02/18 10:18 Temperature 37.3 C 12/02/18 10:18 Temperature Source Skin 12/02/18 10:18 Pulse 83 12/02/18 10:18 Respiratory Rate 16 12/02/18 10:18 Respiratory Effort 12/02/18 10:21 Blood Pressure 143/93 H 12/02/18 10:18 Blood Pressure Position Sitting 12/02/18 10:18 Pulse Oximetry 96 12/02/18 10:18 Oxygen Delivery Method Room Air 12/02/18 10:18 Oxygen Flow Rate 0 12/02/18 10:18 Pain Level 7 12/02/18 10:18
== END 2018-12-02 11:37 | disposition home or self-care (01) ==
PROVIDERS: Emergency Provider Nurse Practitioner Family
DX: S02.5XXA Fracture of tooth (traumatic), initial encounter for closed fracture (principal); X58.XXXA Exposure to other specified factors, initial encounter; K08.89 Other specified disorders of teeth and supporting structures; K02.9 Dental caries, unspecified
CPT/HCPCS: 64402

== ENCOUNTER 2019-03-08 12:06 | Emergency (ER) | payer MEDICAID, SELFPAY ==
[2019-03-08 12:08] VITALS: BP 145/86; PULSE 54; RESP 16; TEMP 36.8; O2SAT 99
--- NOTE | 2019-03-08 12:21 | ED.GENADUL_ITS ---
Discharge Plan Disposition Patient Disposition: HOME Condition: Improving Discharge Details Chief Complaint: DentalOral Clinical Impression: Odontalgia Primary Care Provider: None,None ED Provider: Toi Elkins Home Meds and New Rx's Prescriptions: New penicillin V potassium 500 mg tablet 500 mg PO TID 10 Days Qty: 30 RF: 0 No Action albuterol sulfate [ProAir HFA] 200 PUFF HFA aerosol inhaler 2 puff Inhalation PRN PRNRF: 0 methadone 10 MG/ML concentrate 40 mg PO DAILY RF: 0 Discharge Instructions Instructions: Toothache (ED) Additional Instructions: Continue your regular medications. Return if you develop a fever, difficulty with swallowing, or any other acute concerns. Follow-up with dentistry as planned. Take penicillin as prescribed Medical Decision Making 28-year-old male with generally poor dentition and numerous dental caries presents with left dental pain without evidence of abscess. Regional anesthesia performed with dental block. HPI General Mode of arrival: ambulatory . Date/Time Provider Initiated Documentation: 03/08/19 12:07 . Limitations to Documentation: no limitations . Information obtained by: patient . History of Present Illness 28 year old M presents to the emergency department with the chief complaint of Sling left tooth pain, described as moderate, Quality is described as dull, Patient started experiencing this day(s) and it has been intermittent. No relieving factors improve symptom(s), No exacerbating factors reported . Patient did receive the following treatments prior to arrival, none Related Data Home Medications Medication Instructions Recorded Confirmed albuterol sulfate [ProAir HFA] 2 puff INHALATION PRN PRN 09/18/13 03/08/19 methadone 40 mg PO DAILY 02/06/18 03/08/19 penicillin V potassium 500 mg PO TID 10 Days #30 tab 03/08/19 Previous Rx's Medication Instructions Recorded penicillin V potassium 500 mg PO TID 10 Days #30 tab 03/08/19 Allergies Allergy/AdvReac Type Severity Reaction Status Date / Time No Known Allergies Allergy Unverified 12/02/18 10:21 General Stated Complaint: DentalOral JAVIER: 4 Review of Systems Review of Systems No fever, no swelling, no change to voice or swallowing. 6 systems reviewed and negative [facility] [place] Social History Smoking/Tobacco Use Status: Current every day Tobacco Type: cigarettes Alcohol Intake: former Drug use: Daily Substance use type: marijuana Do you feel safe at home: Yes Do you feel safe in your relationship?: Yes Exam Narrative Exam Narrative: GEN: awake, alert, oriented 3. Pleasant, well groomed, interactive. HEAD: Normocephalic, atraumatic ENT: Mucous membranes moist, oropharynx unremarkable, External ear exam unremarkable. Numerous dental caries. No buccal or lingual fluctuance. No swelling. Uvula is midline EYES: PERRL, EOMI NECK: Full ROM, no GINI, no menigismus Neuro: Grossly normal neurologic exam, conversant, interactive. Psych: Speech fluent, thoughts congruent, affect normal Course Vital Signs Temperature 36.8 C 03/08/19 12:08 Pulse 54 L 03/08/19 12:08 Respiratory Rate 16 03/08/19 12:08 Blood Pressure 145/86 H 03/08/19 12:08 Pulse Oximetry 99 03/08/19 12:08 Temperature 36.8 C 03/08/19 12:08 Temperature Source Skin 03/08/19 12:08 Pulse 54 L 03/08/19 12:08 Respiratory Rate 16 03/08/19 12:08 Respiratory Effort Non-Labored 03/08/19 12:11 Blood Pressure 145/86 H 03/08/19 12:08 Blood Pressure Position Sitting 03/08/19 12:08 Pulse Oximetry 99 03/08/19 12:08 Oxygen Delivery Method Room Air 03/08/19 12:08 Oxygen Flow Rate 0 03/08/19 12:08 Pain Level 6 03/08/19 12:13 Procedures Nerve Block Nerve Block 1: Local Anesthetic: Bupivicaine 0.5% Side: left Intraoral Nerve Block: inferior alveolar Procedure Successful: Yes Patient Tolerated Procedure: well Complications: none
[2019-03-08 12:26] VITALS: BP 145/86; PULSE 54; RESP 16; TEMP 36.8; O2SAT 99
== END 2019-03-08 12:31 | disposition home or self-care (01) ==
LOC: ER 12:32
PROVIDERS: Emergency Provider Emergency Medicine
DX: K08.89 Other specified disorders of teeth and supporting structures (principal)
CPT/HCPCS: 64400

== ENCOUNTER 2019-03-19 14:51 | Emergency (ER) | payer MEDICAID, SELFPAY ==
[2019-03-19 14:55] VITALS: BP 145/78; PULSE 51; RESP 16; TEMP 36.7; O2SAT 100
--- NOTE | 2019-03-19 15:05 | W.ED.GENAD ---
Discharge Plan Disposition Patient Disposition: HOME Condition: Fair Discharge Details Chief Complaint: DentalOral Clinical Impression: Dental infection Primary Care Provider: None,None ED Provider: Jamila Tanner Home Meds and New Rx's Prescriptions: New clindamycin HCl 150 mg capsule 450 mg PO TID 7 Days Qty: 63 RF: 0 Continued albuterol sulfate [ProAir HFA] 200 PUFF HFA aerosol inhaler 2 puff Inhalation PRN PRNRF: 0 methadone 10 MG/ML concentrate 20 mg PO DAILY RF: 0 Discharge Instructions Instructions: Dental Abscess (ED) Additional Instructions: Encourage hydration. Continue with Tylenol and/or Motrin as needed for discomfort. Please take Clindamycin as prescribed. You were given first dosing here. You need follow up with dentist for definitive care, please keep your upcoming appointment. If you develop fevers/chills, increased pain, increased swelling or other new/worsening symptoms please seek care urgently once again. Discharge Data Discharge Date/Time-TO BE ENTERED AT DEPARTURE: 03/19/19 15:52 Medical Decision Making Patient is a 28 year old male presneting today with c/c of right upper dental pain tht has progressively been worsening over the past few days. States that pain is severe. Denies fevers/chills. Has been usiing Ibuprofen for pain. reports generally poor dentition, is trying ot have all teeth pulled. Denies previous infection to this area. Awoke this morning to note swelling to right side of his cheek over area of discomfort. On exam, patient appears uncomfortable. Appears nontoxic, VS reassurring. He has no palpable abscess but notable soft tissue swelling to the right side of his face obscuring the nasolabial fold. no erythema, no fluctuance. No pain with EOM. Patient requesting block. We discussed risks/benefits as well as expected procedural steps. He voices understanding and wishes to proceed. Infraorbital block preformed as above. He tolerated this well and immediately felt much improved. He will contact dentist to schedule apointment for definitive care. Will place patient on Clindamycin. Advised probiotic. He was given strict return precautions. All of his quesiton sand concerns were addressed, he is in agreement with this plan. HPI General Mode of arrival: ambulatory. Date/Time Provider Initiated Documentation: 03/19/19 15:00. Limitations to Documentation: no limitations. Information obtained by: patient and RN notes reviewed. History of Present Illness 28 year old M presents to the emergency department with the chief complaint of right upper dental pain, described as severe and similar to prior episodes, Quality is described as stabbing, and is localized to the mouth. Patient reports radiation to (into right side of nose). Patient started experiencing this day(s) and it has been constant. No relieving factors improve symptom(s), Eating worsens symptoms . Patient notes fever/chills (endorses chills last night) and loss of appetite; denies chest pain, cough, diaphoresis, nausea/vomiting, rash, shortness of breath and weakness. Patient did receive the following treatments prior to arrival, NSAID Related Data Home Medications Medication Instructions Recorded Confirmed albuterol sulfate [ProAir HFA] 2 puff INHALATION PRN PRN 09/18/13 03/19/19 methadone 20 mg PO DAILY 02/06/18 03/19/19 clindamycin HCl 450 mg PO TID 7 Days #63 cap 03/19/19 Previous Rx's Medication Instructions Recorded clindamycin HCl 450 mg PO TID 7 Days #63 cap 03/19/19 Allergies Allergy/AdvReac Type Severity Reaction Status Date / Time No Known Allergies Allergy Unverified 03/19/19 14:57 General Stated Complaint: DentalOral JAVIER: 4 Review of Systems Constitutional Reports as per HPI, Denies chills, Denies fatigue, Denies fever(s), Denies headache(s) and Denies poor appetite Eyes Denies change in vision and Denies irritation ENT Reports as per HPI, Reports dental pain, Denies dysphagia, Denies dizziness, Denies dry mouth, Denies ear discharge, Denies otalgia, Reports facial pain, Denies headache(s), Denies hoarseness, Denies lip swelling, Denies nasal congestion, Denies odynophagia and Denies sore throat Cardiovascular Reports as per HPI and Denies chest pain Respiratory Reports as per HPI and Denies cough Gastrointestinal Reports as per HPI, Denies dysphagia, Denies nausea, Denies odynophagia and Denies vomiting Integumentary/Breasts Reports as per HPI, Denies erythema, Denies rash and Denies skin pain Neurologic Reports as per HPI, Denies dizziness and Denies headache(s) Endocrine Denies fatigue Allergic/Immunologic Denies lip swelling [facility] Social History Smoking/Tobacco Use Status: Current every day Tobacco Type: cigarettes Alcohol Intake: former Drug use: Daily Substance use type: marijuana Do you feel safe at home: Yes Do you feel safe in your relationship?: Yes Exam Const General: cooperative, healthy appearing, comfortable, no acute distress, well developed and well groomed Nutritional Appearance: average body habitus and well nourished Orientation: alert and awake [facility] Head: normal to inspection, normocephalic and atraumatic Ears: hearing grossly normal bilaterally, external ears normal and TM's normal bilaterally General nose exam: external nose normal and nares normal Face and sinus: abnormal facial exam (swelling to right side of nose, loss of crease) and sinuses nontender Mouth: lip normal, tongue normal, oropharynx abnormals (erythema over the #5- #8 tooth along buccal aspect. No pain on lingual side), mucous membranes dry (patient dry), no trismus and No restricted motion Teeth and gingiva: poor dentition Throat: posterior oropharynx normal, tonsils normal and uvula midline Eyes General: appearance normal, both eyes and all related structures Neck Neck: normal visual inspection, full ROM, no lymphadenopathy, supple and no anterior neck swelling Resp Effort & Inspection: normal respiratory effort, able to speak in complete sentences and no respiratory distress Auscultation: clear to auscultation bilaterally, no rales, no rhonchi and no wheezes Cardio Rate: regular rate Rhythm: regular rhythm Heart Sounds: S1 normal and S2 normal Skin General skin exam: no rashes or lesions noted Trauma: no lacerations or abrasions Neuro General: alert and awake Cognition: normal cognition Speech: speech normal Gait: normal gait Psych Appearance: grossly normal and well kempt Mental Status: mental status grossly normal Speech and Movement: speech and movement normal Course Vital Signs Temperature 36.7 C 03/19/19 14:55 Pulse 51 L 03/19/19 14:55 Respiratory Rate 16 03/19/19 14:55 Blood Pressure 145/78 H 03/19/19 14:55 Pulse Oximetry 100 03/19/19 14:55 Temperature 36.7 C 03/19/19 14:55 Temperature Source Skin 03/19/19 14:55 Pulse 51 L 03/19/19 14:55 Respiratory Rate 16 03/19/19 14:55 Respiratory Effort Non-Labored 03/19/19 14:55 Blood Pressure 145/78 H 03/19/19 14:55 Blood Pressure Position Sitting 03/19/19 14:55 Pulse Oximetry 100 03/19/19 14:55 Oxygen Delivery Method Room Air 03/19/19 14:55 Oxygen Flow Rate 0 03/19/19 14:55 Pain Level 7 03/19/19 14:55 Procedures Nerve Block Nerve Block 1: Time out performed: Yes Local Anesthetic: Lidocaine 1% and Bupivicaine 0.25% Amount of anesthesia used (mL): 1 Side: right Intraoral Nerve Block: infraorbital Procedure Successful: Yes Patient Tolerated Procedure: well and no complications Complications: none
[2019-03-19 15:52] VITALS: BP 156/92; PULSE 52; RESP 16; O2SAT 99
[2019-03-19] MEDS: Clindamycin 150 MG CAP 450 MG PO (15:52)
== END 2019-03-19 15:52 | disposition home or self-care (01) ==
PROVIDERS: Emergency Provider Physician Assistant
DX: R68.84 Jaw pain (principal); K04.7 Periapical abscess without sinus
CPT/HCPCS: 64402

== ENCOUNTER 2019-06-13 08:23 | Emergency (ER) | payer MEDICAID, SELFPAY ==
[2019-06-13 08:26] VITALS: BP 139/77; PULSE 63; RESP 15; TEMP 37.1; O2SAT 98
--- NOTE | 2019-06-13 08:52 | ED.GENADUL_ITS ---
Discharge Plan Disposition Patient Disposition: HOME Condition: Good Discharge Details Chief Complaint: DentalOral Clinical Impression: Pain, dental Primary Care Provider: Joanna,Local ED Provider: Traci Guzmán Home Meds and New Rx's Prescriptions: New penicillin V potassium 500 mg tablet 500 mg PO QID Qty: 40 RF: 0 No Action albuterol sulfate [ProAir HFA] 200 PUFF HFA aerosol inhaler 2 puff Inhalation PRN PRNRF: 0 methadone 10 MG/ML concentrate 60 mg PO DAILY RF: 0 Discharge Instructions Instructions: Toothache (ED) Additional Instructions: Rinse with warm salt water after eating or drinking. Ice to the cheek for comfort. Motrin or Tylenol for soreness if needed Use antibiotic as prescribed. Follow-up with your dentist. Next and return for fever, difficulty eating or swallowing, difficulty moving her jaw or for any worsening or concerns sooner if needed Medical Decision Making 28-year-old man presents for dental pain. Dental pain for the last 3 days. Widespread caries working with a dentist currently to repair caries. Patient on exam has no focal abscess but reports right lower jaw pain. No facial swelling or cellulitis associated. No associated trismus. Patient eating and drink without difficulty and appears well-hydrated. No fevers or systemic ill symptoms at this time. Will treat appropriately with antibiotic course of penicillin and encourage close follow-up with dentist. Conservative treatments discussed. The patient was stable and requested discharge. Prior to discharge, my usual and customary return precautions were reviewed with the patient - this included follow-up instructions and reasons to return to the Emergency Department if conditions worsens, does not improve as expected, or other new concerns arise. HPI General Date/Time Provider Initiated Documentation: 06/13/19 08:33 . HPI Narrative: Very pleasant 28-year-old man who comes in for dental pain for the last 3 days. Patient has known dental caries which are widespread. Is working with a dentist to slowly repair damaged teeth. Called his dentist today as he has had pain for the last 3 days and was concerned with the possibility of an infection. Dentist recommended come to the emergency room to obtain antibiotic as he was unable to fit the patient into his schedule today. Patient denies fever or chills. Patient reports pain with range of motion of his jaw but no obvious trismus. Able to eat and drink without difficulty. No active facial swelling. Related Data Home Medications Medication Instructions Recorded Confirmed albuterol sulfate [ProAir HFA] 2 puff INHALATION PRN PRN 09/18/13 06/13/19 methadone 60 mg PO DAILY 02/06/18 06/13/19 penicillin V potassium 500 mg PO QID #40 tab 06/13/19 Previous Rx's Medication Instructions Recorded penicillin V potassium 500 mg PO QID #40 tab 06/13/19 Allergies Allergy/AdvReac Type Severity Reaction Status Date / Time No Known Allergies Allergy Unverified 06/13/19 08:29 General Stated Complaint: DentalOral JAVIER: 4 Review of Systems All systems reviewed & are unremarkable except as noted in HPI and below Constitutional Constitutional: Denies chills, Denies fatigue, Denies fever(s) and Denies headache(s) ENT Ears, Nose, Mouth, and Throat: Reports dental pain, Denies headache(s), Reports mouth pain and Denies nasal congestion Respiratory Respiratory: Denies cough and Denies wheezing Neurologic Neurologic: Denies headache(s) Endocrine Endocrine: Denies fatigue Allergic/Immunologic Allergic/Immunologic: Denies wheezing [facility] Social History Smoking/Tobacco Use Status: Current every day Tobacco Type: cigarettes Alcohol Intake: former Drug use: Daily Substance use type: marijuana Do you feel safe at home: Yes Do you feel safe in your relationship?: Yes Exam Narrative Exam Narrative: CONST: Healthy appearing patient, in no acute distress. Well hydrated. Alert and alert. HENMT: Head nomocephalic, normal to inspection. Atraumatic. Hearing grossly normal. TMs intact bilaterally without obvious effusion or erythema. Patient with widespread dental caries. No focal abscess along the right lower gumline which is patient's identified side his pain. No obvious trismus. No pharyngeal erythema. No facial swelling EYES: General normal appearance. Alignment normal. Eyelids normal. Conjunctiva normal. NECK: Normal visual inspection. FROM. Trachea midline. No Midline tenderness. Cervical lymphadenopathy present SKIN: Normal. Dry. No rashes. NEURO: Alert and awake. Speech clear. PSYCH: Normal affect. Cooperative. Course Vital Signs Vital signs: Vital Signs Temperature 37.1 C 06/13/19 08:26 Pulse 63 06/13/19 08:26 Respiratory Rate 15 06/13/19 08:26 Blood Pressure 139/77 06/13/19 08:26 Pulse Oximetry 98 06/13/19 08:26 Temperature 37.1 C 06/13/19 08:26 Temperature Source Skin 06/13/19 08:26 Pulse 63 06/13/19 08:26 Respiratory Rate 15 06/13/19 08:26 Respiratory Effort 06/13/19 08:30 Blood Pressure 139/77 06/13/19 08:26 Blood Pressure Position Sitting 06/13/19 08:26 Pulse Oximetry 98 06/13/19 08:26 Oxygen Delivery Method Room Air 06/13/19 08:26 Oxygen Flow Rate 0 06/13/19 08:26 Pain Level 6 06/13/19 08:26
== END 2019-06-13 08:55 | disposition home or self-care (01) ==
PROVIDERS: Emergency Provider Physician Assistant
DX: K08.89 Other specified disorders of teeth and supporting structures (principal)
CPT/HCPCS: 99283

== ENCOUNTER 2019-07-25 15:02 | Emergency (ER) | payer MEDICAID, SELFPAY ==
[2019-07-25 15:02] VITALS: BP 172/66; PULSE 97; RESP 22; TEMP 36.9; O2SAT 100
--- NOTE | 2019-07-25 15:45 | ED.GENADUL_ITS ---
Discharge Plan Disposition Patient Disposition: HOME Condition: Stable Discharge Details Chief Complaint: Laceration Clinical Impression: Finger laceration Primary Care Provider: Joanna,Local ED Provider: Tereza Pink Home Meds and New Rx's Prescriptions: New ibuprofen 600 mg tablet 600 mg PO QID PRN (Reason: pain) Qty: 20 RF: 0 Continued albuterol sulfate [ProAir HFA] 200 PUFF HFA aerosol inhaler 2 puff Inhalation PRN PRNRF: 0 penicillin V potassium 500 mg tablet 500 mg PO QID Qty: 40 RF: 0 methadone 10 MG/ML concentrate 60 mg PO DAILY RF: 0 Discharge Instructions Instructions: Finger Laceration (ED) Additional Instructions: Keep wound clean and dry. Wash the area with soap and water and pat dry. If risk of contamination, keep the wound covered. If resting at home, you can keep the wound open to air. Return to the emergency department in 7 to 10 days for suture removal. Return at anytime earlier to the emergency department if you develop any worsening or new concerning symptoms such as inability to move or feel finger. Discharge Data Discharge Date/Time-TO BE ENTERED AT DEPARTURE: 07/25/19 18:25 Discharge Physician: Tereza Pink Medical Decision Making 28-year-old male presents with left second finger laceration sustained while using a knife to cut a [place] tree. There is a 4 x 1 cm straight laceration on the dorsal aspect of the left second digit extending from the webspace overlying the MCP joint and to the mid proximal phalanx. There appears to be laceration extending through the fascia or extensor sargent and possibly muscle. Patient has full motor and sensory function without any deficits and obvious tendon injury. X-ray obtained which is negative for foreign body or fracture. Case discussed with orthopedics Dr. River who recommends skin suturing and 1 g of Keflex p.o. x 1 day. Does not recommend subcutaneous stitches. Recommends returning earlier before suture removal if develops any worsening symptoms or deficits. 7 sutures placed. Patient requested additional antibiotics. Will give additional Keflex for home. Patient advised to return to the ED within 7 to 10 days for suture removal. Usual and customary return precautions given prior to discharge. Medical Records Medical records reviewed: Yes I reviewed the patient's medical records. Imaging Data Radiologic Study: Radiologist's impression: XR Left Hand Exam date and time: 07/25/2019 4:15 PM Age: 28 years old Clinical history: Injury or trauma; Injury history: Cutting a branch and knife slipped; Initial encounter; Laceration; Hand; Left; Injury date: 07/25/2019 TECHNIQUE: Imaging protocol: XR Left hand. Views: 3 or more views. COMPARISON: CR LEFT HAND LIMITED 02/11/2013 10:28 PM FINDINGS: Bones/joints: Normal. Soft tissues: Normal. IMPRESSION: No acute findings. HPI General Mode of arrival: ambulatory . Date/Time Provider Initiated Documentation: 07/25/19 15:05 . Limitations to Documentation: no limitations . Information obtained by: patient . HPI Narrative: Patient is a 28-year-old male who sustained a left second finger laceration after trimming a [place] tree with a knife prior to arrival. States his tetanus is up-to-date within the past 5 years. Related Data Home Medications Medication Instructions Recorded Confirmed albuterol sulfate [ProAir HFA] 2 puff INHALATION PRN PRN 09/18/13 06/13/19 methadone 60 mg PO DAILY 02/06/18 06/13/19 penicillin V potassium 500 mg PO QID #40 tab 06/13/19 ibuprofen 600 mg PO QID PRN #20 tab 07/25/19 Previous Rx's Medication Instructions Recorded penicillin V potassium 500 mg PO QID #40 tab 06/13/19 ibuprofen 600 mg PO QID PRN #20 tab 07/25/19 Allergies Allergy/AdvReac Type Severity Reaction Status Date / Time No Known Allergies Allergy Unverified 06/13/19 08:29 General Stated Complaint: Laceration JAVIER: 3 Review of Systems All systems reviewed & are unremarkable except as noted in HPI and below PFSH Social History Smoking/Tobacco Use Status: Current every day Tobacco Type: cigarettes Alcohol Intake: former Drug use: Current Sobriety Substance use type: former substance user Do you feel safe at home: Yes Do you feel safe in your relationship?: Yes Exam Const General: cooperative, healthy appearing and no acute distress HENMT Head: normal to inspection Mouth: oral mucosae normal Eyes General: appearance normal, both eyes and all related structures Neck Neck: normal visual inspection Resp Effort & Inspection: normal respiratory effort and able to speak in complete sentences Cardio Rate: regular rate Skin General skin exam: no rashes or lesions noted Neuro General: alert, awake and oriented x3 Motor: muscle tone normal throughout Other: Grossly normal motor and sensory function of left second finger. Extrem General: normal capillary refill Hand/finger images: 1. 4x1 cm straight laceration on left second finger dorsal aspect extending from PIP joint to webspace. Active bleeding but not pulsatile. No obvious foreign bodies noted. Psych Appearance: grossly normal Affect: normal affect Course Vital Signs Vital signs: Vital Signs Temperature 98.4 F 07/25/19 15:02 Pulse 97 H 07/25/19 15:02 Respiratory Rate 22 07/25/19 15:02 Blood Pressure 172/66 H 07/25/19 15:02 Pulse Oximetry 100 07/25/19 15:02 Temperature 98.4 F 07/25/19 15:02 Temperature Source Skin 07/25/19 15:02 Pulse 97 H 07/25/19 15:02 Respiratory Rate 22 07/25/19 15:02 Respiratory Effort 07/25/19 15:05 Blood Pressure 172/66 H 07/25/19 15:02 Blood Pressure Position Sitting 07/25/19 15:02 Pulse Oximetry 100 07/25/19 15:02 Oxygen Delivery Method Room Air 07/25/19 15:02 Oxygen Flow Rate 0 07/25/19 15:02 Pain Level 9 07/25/19 15:02 Procedures Laceration Laceration 1: Site: hand Side (If applicable): left (2nd digit) Size (cm): 4 Description: linear Depth: involves muscle layer Local Anesthetic: Lidocaine 1% and with Epi Amount of anesthesia used (mL): 6 Pre-repair: wound explored and irrigated extensively Skin layer closed with: nylon Size (cm): 5-0 Number of sutures: 7 Technique: simple, interrupted
[2019-07-25] MEDS: Ibuprofen 600 MG TAB PO (16:03)
--- NOTE | 2019-07-25 16:07 | DI.RAD_ITS ---
EXAM: XR HAND LT COMPLETE INDICATION: cut L 2nd finger, r/o acute foreign body/fx. COMPARISON: No exams were available for comparison TECHNIQUE: 2D digital imaging was performed. FINDINGS: The exam is limited by finger positioning. The phalanges are not optimally profiled. No gross frac ture or dislocation is seen. IMPRESSION: No gross evidence of acute abnormality.
--- NOTE | 2019-07-25 16:59 | DI.VRAD_ITS ---
PROCEDURE INFORMATION: Exam: XR Left Hand Exam date and time: 07/25/2019 4:15 PM Age: 28 years old Clinical history: Injury or trauma; Injury history: Cutting a branch and knife slipped; Initial encounter; Laceration; Hand; Left; Injury date: 07/25/2019 TECHNIQUE: Imaging protocol: XR Left hand. Views: 3 or more views. COMPARISON: CR LEFT HAND LIMITED 02/11/2013 10:28 PM FINDINGS: Bones/joints: Normal. Soft tissues: Normal. IMPRESSION: No acute findings. Dictated and Authenticated by: Jose Giang MD. Ordering:BROOK Starks MD
[2019-07-25] MEDS: Cephalexin 500 MG CAP 1000 MG PO (17:44)
== END 2019-07-25 18:25 | disposition home or self-care (01) ==
PROVIDERS: Emergency Provider Physician Assistant
DX: S61.211A Laceration without foreign body of left index finger without damage to nail, initial encounter (principal); W26.0XXA Contact with knife, initial encounter
CPT/HCPCS: 12002; 73130

== ENCOUNTER 2019-10-15 16:10 | Emergency (ER) | payer MEDICAID, SELFPAY ==
[2019-10-15 16:18] VITALS: BP 148/70; PULSE 60; RESP 15; TEMP 36.7; O2SAT 98
--- NOTE | 2019-10-15 16:27 | ED.GENADUL_ITS ---
Discharge Plan Disposition Patient Disposition: HOME Condition: Stable Discharge Details Chief Complaint: DentalOral Clinical Impression: Pain, dental Primary Care Provider: Joanna,Local ED Provider: Kishan Corea Home Meds and New Rx's Prescriptions: New amoxicillin 500 mg tablet 500 mg PO BID Qty: 20 RF: 0 Continued albuterol sulfate [ProAir HFA] 200 PUFF HFA aerosol inhaler 2 puff Inhalation PRN PRNRF: 0 methadone 10 MG/ML concentrate 60 mg PO DAILY RF: 0 ibuprofen 600 mg tablet 600 mg PO QID PRN (Reason: pain) Qty: 20 RF: 0 Discharge Instructions Instructions: Toothache (ED) Additional Instructions: follow up as scheduled with your dentist if you have severe worsening pain or difficulty swallowing liquids or difficulty breathing return to the emergency department Medical Decision Making 28 yo male comes in with 3 days of pain in all molars, upper left and right and lower left and right. Denies fevers, dyspnea or difficulty swallowing. He arrives HD stable speaking in full sentences without submandibular swelling, no pain over hyoid or restricted neck movements, no evidence of periapical abscess, has normal oropharynx and numerous dental caries. He is seeing a dentist next we ek. Has no evidence of ludwigs on exam today. Will start amoxicillin and return precautions given Differential Diagnosis Differential Diagnosis: pulpitis, dental abscess, caries HPI General Mode of arrival: ambulatory . Date/Time Provider Initiated Documentation: 10/15/19 16:13 . Limitations to Documentation: no limitations . Information obtained by: patient . History of Present Illness 28 year old M presents to the emergency department with the chief complaint of dental pain, described as moderate, No relieving factors improve symptom(s), No exacerbating factors reported . Patient did receive the following treatments prior to arrival, none Related Data Home Medications Medication Instructions Recorded Confirmed albuterol sulfate [ProAir HFA] 2 puff INHALATION PRN PRN 09/18/13 10/15/19 methadone 60 mg PO DAILY 02/06/18 10/15/19 ibuprofen 600 mg PO QID PRN #20 tab 07/25/19 10/15/19 amoxicillin 500 mg PO BID #20 tab 10/15/19 Previous Rx's Medication Instructions Recorded ibuprofen 600 mg PO QID PRN #20 tab 07/25/19 amoxicillin 500 mg PO BID #20 tab 10/15/19 Allergies Allergy/AdvReac Type Severity Reaction Status Date / Time No Known Allergies Allergy Unverified 06/13/19 08:29 General Stated Complaint: DentalOral JAVIER: 4 Review of Systems All systems reviewed & are unremarkable except as noted in HPI and below Constitutional Constitutional: Denies chills, Denies fever(s) and Denies weakness ENT Ears, Nose, Mouth, and Throat: Denies change in voice Cardiovascular Cardiovascular: Denies chest pain and Denies dyspnea Respiratory Respiratory: Denies cough and Denies dyspnea Gastrointestinal Gastrointestinal: Denies abdominal pain, Denies nausea and Denies vomiting Musculoskeletal Musculoskeletal: Denies joint swelling Neurologic Neurologic: Denies weakness Psychiatric Psychiatric: Denies depression [facility] Social History Smoking/Tobacco Use Status: Current every day Tobacco Type: cigarettes Alcohol Intake: former Drug use: Current Sobriety Substance use type: former substance user Do you feel safe at home: Yes Do you feel safe in your relationship?: Yes Exam Const General: no acute distress Orientation: alert HENMT Head: normal to inspection Ears: external ears normal General nose exam: external nose normal Mouth: moist mucous membranes Eyes General: appearance normal, both eyes and all related structures Neck Neck: normal visual inspection Resp Effort & Inspection: normal respiratory effort and able to speak in complete sentences Cardio Rate: regular rate Skin General skin exam: no rashes or lesions noted Neuro General: alert and oriented x3 Extrem General: normal to inspection Psych Mental Status: mental status grossly normal Course Vital Signs Vital signs: Vital Signs Temperature 36.7 C 10/15/19 16:18 Pulse 60 10/15/19 16:18 Respiratory Rate 15 10/15/19 16:18 Blood Pressure 148/70 H 10/15/19 16:18 Pulse Oximetry 98 10/15/19 16:18 Temperature 36.7 C 10/15/19 16:18 Temperature Source Temporal Artery Scan 10/15/19 16:18 Pulse 60 10/15/19 16:18 Respiratory Rate 15 10/15/19 16:18 Respiratory Effort Non-Labored 10/15/19 16:22 Blood Pressure 148/70 H 10/15/19 16:18 Pulse Oximetry 98 10/15/19 16:18 Oxygen Delivery Method Room Air 10/15/19 16:18 Oxygen Flow Rate 0 10/15/19 16:18 Pain Level 6 10/15/19 16:23
== END 2019-10-15 16:32 | disposition home or self-care (01) ==
PROVIDERS: Emergency Provider Emergency Medicine
DX: K08.89 Other specified disorders of teeth and supporting structures (principal)
CPT/HCPCS: 99283

== ENCOUNTER 2020-01-29 09:08 | Emergency (ER) | payer MEDICAID, SELFPAY ==
[2020-01-29 09:14] VITALS: BP 178/77; PULSE 72; TEMP 37.1; O2SAT 98
--- NOTE | 2020-01-29 09:54 | ED.GENADUL_ITS ---
Discharge Plan Disposition Patient Disposition: HOME Condition: Stable Discharge Details Chief Complaint: DentalOral Clinical Impression: Pain due to dental caries Primary Care Provider: Joanna,Local ED Provider: Traci Guzmán Home Meds and New Rx's Prescriptions: New penicillin V potassium 500 mg tablet 500 mg PO QID Qty: 40 RF: 0 Continued albuterol sulfate [ProAir HFA] 200 PUFF HFA aerosol inhaler 2 puff Inhalation PRN PRNRF: 0 methadone 10 MG/ML concentrate 65 mg PO DAILY RF: 0 ibuprofen 600 mg tablet 600 mg PO QID PRN (Reason: pain) Qty: 20 RF: 0 Discharge Instructions Instructions: Dental Caries (ED) Additional Instructions: Use antibiotics as prescribed. Rest activities as tolerated. Warm salt water rinses. Ice to the cheek for swelling. Keep head of bed elevated. Please call dentist for prompt follow-up. Return for increased facial swelling, increased facial pain, fevers, chills, ill feeling or worsening, or concerns as discussed Medical Decision Making 29-year-old patient presents for dental pain. See HPI for the remainder of patient's details. Patient reports dental pain for last few days. Dentist sent him to obtain antibiotic. Patient has no focal facial swelling, tenderness noted superior of tooth #8 with palpation. Patient has no trismus or voice change. Has been able to eat and drink. Does appear well-hydrated. Patient is not ill-appearing in general. We will plan to provide antibiotic, penicillin. Patient is tolerated this in the past without difficulty. We did discuss use of conservative treatments as well as warm salt water rinses, icing, keeping head of bed elevated. We did discuss at length the use of Motrin and Tylenol properly. We did discuss patient's use of methadone, we did discuss splitting dose and recommended he discuss this with [facility]. Patient agrees this plan of care. The patient was stable and requested discharge. Prior to discharge, my usual and customary return precautions were reviewed with the patient - this included follow-up instructions and reasons to return to the Emergency Department if conditions worsens, does not improve as expected, or other new concerns arise. [facility] General Date/Time Provider Initiated Documentation: 01/29/20 09:49 . HPI Narrative: This is a 29-year-old patient presenting to the emergency room for complaints of dental pain. Patient reports onset of dental pain for the last few days. Worsening this morning. Patient reports sensation of swelling to the upper gums. Patient reports widespread dental caries. Patient did see dentist recently had x-rays but dental appointments were delayed due to Covid. Patient reports increase in swelling and pain today therefore concerned with the need for antibiotic, he did speak with his dentist yesterday who recommended coming to the emergency room for return for antibiotic. Patient denies fever, chills, nausea, vomiting. Denies any trismus. Patient is eating and drinking without difficulty. Patient reports he is frequently using warm salt water rinses. Denies cough, chest pain, difficulty breathing shortness of breath or wheezing. Denies any other concerns or complaints at this time. Patient denies any rash. Denies any focal facial swelling. Related Data Home Medications Medication Instructions Recorded Confirmed albuterol sulfate [ProAir HFA] 2 puff INHALATION PRN PRN 09/18/13 01/29/20 methadone 65 mg PO DAILY 02/06/18 01/29/20 ibuprofen 600 mg PO QID PRN #20 tab 07/25/19 01/29/20 penicillin V potassium 500 mg PO QID #40 tab 01/29/20 Previous Rx's Medication Instructions Recorded ibuprofen 600 mg PO QID PRN #20 tab 07/25/19 penicillin V potassium 500 mg PO QID #40 tab 01/29/20 Allergies Allergy/AdvReac Type Severity Reaction Status Date / Time No Known Allergies Allergy Unverified 01/29/20 09:18 General Stated Complaint: DentalOral JAVIER: 4 Review of Systems All systems reviewed & are unremarkable except as noted in HPI and below PFSH Social History Smoking/Tobacco Use Status: Current every day Tobacco Type: cigarettes Alcohol Intake: former Drug use: Current Sobriety Substance use type: former substance user Do you feel safe at home: Yes Do you feel safe in your relationship?: Yes Exam Narrative Exam Narrative: CONST: Healthy appearing patient, in no acute distress. Well hydrated. Alert and oriented. HENMT: Head nomocephalic, normal to inspection. Atraumatic. Hearing grossly normal. Mild erythema noted to the left external canal likely secondary to use of Q-tips. No drainage. TMs appear normal by laterally. No pharyngeal erythema. Widespread dental caries noted. Mild tenderness with palpation of the gumline above tooth #8. No focal abscess. No significant facial swelling. EYES: General normal appearance. Alignment normal. Eyelids normal. Conjunctiva normal. NECK: Normal visual inspection. FROM. Trachea midline. No Midline tenderness. No cervical lymphadenopathy present CHEST: Normal insepection of the chest. RESP: Normal respiratory effort. Speaking full sentences. No cough. No audible wheezing. No retractions. CARDIO: No JVD. MUSCULOSKELETAL: Normal Gait. FROM of all extremities. SKIN: Normal. Dry. No rashes. NEURO: Alert and awake. Speech clear. PSYCH: Normal affect. Cooperative. Course Vital Signs Vital signs: Vital Signs Temperature 37.1 C 01/29/20 09:14 Pulse 72 01/29/20 09:14 Blood Pressure 178/77 H 01/29/20 09:14 Pulse Oximetry 98 01/29/20 09:14 Temperature 37.1 C 01/29/20 09:14 Temperature Source Temporal Artery Scan 01/29/20 09:14 Pulse 72 01/29/20 09:14 Respiratory Effort Non-Labored 01/29/20 09:16 Blood Pressure 178/77 H 01/29/20 09:14 Blood Pressure Position Sitting 01/29/20 09:14 Pulse Oximetry 98 01/29/20 09:14 Oxygen Delivery Method Room Air 01/29/20 09:14 Oxygen Flow Rate 0 01/29/20 09:14 Pain Level 8 01/29/20 09:17
== END 2020-01-29 09:57 | disposition home or self-care (01) ==
PROVIDERS: Emergency Provider Physician Assistant
DX: R68.84 Jaw pain (principal)
CPT/HCPCS: 99283

== ENCOUNTER 2020-02-22 11:04 | Outpatient (CLI) | payer MEDICAID, SELFPAY ==
[2020-02-22 12:28] LABS: Abs Immature Grans 0.01 k/cumm (0.0-0.09); Absolute Basophil Count 0.01 k/cumm (0.0-0.2); Absolute Lymphocyte Count 2.15 k/cumm (1.2-3.4); Absolute Monocyte Count 0.49 k/cumm (0.11-0.7); Absolute Neutrophil Count 3.96 k/cumm (1.2-6.7); Basophils % 0.1; Eosinophils % 1.5; HCT 40.7 % (40.0-50.0); HGB 13.5 g/dL (13.5-17.5); Immature Grans % 0.1 %; Mean Corp. HGB Concentration 33.2 g/dL (32.0-36.0); Mean Corpuscular Hemoglobin 29.9 pg (27.0-33.0); Mean Corpuscular Volume 90.2 fL (80-95); Mean Platelet Volume 9.7 fL (8.0-11.0); Monocytes % 7.3; Platelet Count 299 x1000/uL (130-400); RBC 4.51 m/cumm (4.50-6.00); RBC Distribution Width 13.3 % (11.8-14.1); White Blood Cell Count 6.72 k/cumm (4.4-10.8)
[2020-02-22 12:40] LABS: Hemoglobin A1C 5.1 % (3.8-5.6)
[2020-02-22 12:47] LABS: ALT 97 U/L (16-63); AST 52 U/L (15-37); Albumin 4.4 g/dL (3.4-5.0); Alkaline Phosphatase 86 U/L (46-116); Anion Gap 6.8 mmol/L (3-11); BUN 13 mg/dL (7-18); Bilirubin, Total 0.3 mg/dL (0.2-1.0); CO2 30.2 mmol/L (21.0-32.0); CREATININE 0.75 mg/dL (0.70-1.30); Calcium 9.3 mg/dL (8.5-10.1); Calculated LDL 88 mg/dL (<100); Chloride 100 mmol/L (98-107); Cholesterol 155 mg/dL (<200); Glucose 102 mg/dL (74-106); HDL Cholesterol 58 mg/dL (40-60); Potassium 4.3 mmol/L (3.5-5.1); Sodium 137 mmol/L (136-145); TSH 0.67 uIU/mL (0.36-3.74); Total Protein 7.6 g/dL (6.4-8.2); Triglyceride 45 mg/dL (<150)
[2020-02-22 13:15] LABS: FREE T4 1.16 ng/dL (0.76-1.46)
[2020-02-25 10:24] LABS: HIV-1/2 Ag & Ab Screen Negative (Negative)
[2020-02-25 10:52] LABS: Hepatitis C Ab w Rflx HCV PCR Reactive (Negative)
[2020-02-25 12:40] LABS: Syphilis Serology (RPR) Negative (Negative)
[2020-02-27 14:04] LABS: HCV RNA Qualitative Detected (Undetected)
== END 2020-02-22 11:24 ==
PROVIDERS: PCP Nurse Practitioner Family; Visit Provider Nurse Practitioner Family
DX: F19.11 Other psychoactive substance abuse, in remission (principal); Z13.1 Encounter for screening for diabetes mellitus; Z13.220 Encounter for screening for lipoid disorders; R55 Syncope and collapse; Z11.4 Encounter for screening for human immunodeficiency virus [HIV]; Z11.59 Encounter for screening for other viral diseases
CPT/HCPCS: 36415; 80053; 80061; 86803; 87389; 87522; 83036; 84439; 84443; 85025; 86592

== ENCOUNTER 2020-03-03 17:00 | Emergency (ER) | payer MEDICAID, SELFPAY ==
[2020-03-03 17:06] VITALS: BP 146/76; PULSE 51; RESP 15; TEMP 37.2; O2SAT 99
--- NOTE | 2020-03-03 17:20 | ED.GENADUL_ITS ---
Discharge Plan Disposition Patient Disposition: HOME Condition: Stable Discharge Details Chief Complaint: DentalOral Clinical Impression: Pain, dental Primary Care Provider: Lili Cabrera ED Provider: Amelia Abarca Home Meds and New Rx's Prescriptions: No Action albuterol sulfate [ProAir HFA] 200 PUFF HFA aerosol inhaler 2 puff Inhalation PRN PRNRF: 0 amoxicillin-pot clavulanate [Augmentin] 875-125 mg tablet 1 tab PO BID Qty: 20 RF: 0 methadone 10 MG/ML concentrate 65 mg PO DAILY RF: 0 Discharge Instructions Instructions: Dental Abscess (ED), Toothache (ED) Additional Instructions: Please return immediately to the emergency department if you develop any new or worsening symptoms, if your condition does not improve as expected, or if you become otherwise concerned. It is extremely important that you call soon as possible to make an appointment to be seen in follow-up for this visit by your primary care doctor and your dentist as we discussed. Referrals: Lili Cabrera PURCHASING SPECIALIST [Primary Care Provider] - Discharge Data Discharge Date/Time-TO BE ENTERED AT DEPARTURE: 03/03/20 17:40 Medical Decision Making Varun Canas is a 29-year-old man with a history of asthma, hepatitis C who presented to the emergency department with bilateral upper rear dental pain. On exam patient is very well and nontoxic-appearing. Bilateral external ears normal, bilateral canals and TMs normal. No facial swelling. Poor dentition throughout. Mild erythema surrounding the right rear upper molar without edema, fluctuance, or drainage. No erythema, edema, or fluctuance of the gingiva surrounding the left or upper molar. No tongue elevation. No drooling, normal voice, handling secretions without issue. Concern for dental infection. Exam/history is not consistent with sepsis, Uli's angina, other impending airway compromise, dental abscess, meningitis, other deep space infection. Plan for penicillin, ibuprofen. Patient reports that he is scheduled to see a dentist in 2 days. I had a lengthy discussion with Patient regarding return to emergency department precautions, home care, and importance of outpatient follow-up. Pt verbalizes understanding of the plan and is amenable. Patient discharged to home with clear plan for outpatient follow-up. All questions were answered. Disposition decision was made weighing the risks and benefits of hospitalization versus outpatient treatment, the risk for further decompensation, and the patient's wishes. Medical Records Medical records reviewed: Yes I reviewed the patient's medical records. HPI General Mode of arrival: ambulatory . Date/Time Provider Initiated Documentation: 03/03/20 17:19 . Limitations to Documentation: no limitations . Information obtained by: patient, RN notes reviewed and old records reviewed . HPI Narrative: Varun Canas is a 29-year-old man with a history of hepatitis C, asthma presenting to the emergency department dental pain. Patient reports that he has had pain around his left upper rear molars for the past few weeks, and then 4 days ago developed pain around his right upper rear molar radiating into his ear. Patient reports that he is scheduled to see a dentist within the week for evaluation of chronic poor dentition and to have teeth pulled. Patient reports that he was concerned that his right sided dental pain might actually be related to an ear infection given radiation of pain to his ear. He denies any discharge from his ear, any rashes face, any difficulty swallowing, or any difficulty breathing. He reports that he feels otherwise well in his usual state of health. No fevers, vomiting, diarrhea, rash, shortness of breath, cough. He reports that he has been eating and drinking as usual. No recent dental trauma. Related Data Home Medications Medication Instructions Recorded Confirmed albuterol sulfate [ProAir HFA] 2 puff INHALATION PRN PRN 09/18/13 03/12/20 methadone 65 mg PO DAILY 02/06/18 03/12/20 amoxicillin-pot clavulanate 1 tab PO BID #20 tab 03/12/20 [Augmentin] Previous Rx's Medication Instructions Recorded amoxicillin-pot clavulanate 1 tab PO BID #20 tab 03/12/20 [Augmentin] Allergies Allergy/AdvReac Type Severity Reaction Status Date / Time No Known Allergies Allergy Verified 03/12/20 06:31 General Stated Complaint: DentalOral JAVIER: 4 Review of Systems Narrative: Constitutional: denies fevers Eyes: denies eye pain ENT: denies ear pain, sore throat, swallowing, reports dental pain as per HPI Cardiovascular: denies chest pain Respiratory: denies SOB, cough GI: denies abdominal pain, vomiting, diarrhea : denies flank pain MSK: denies back pain, neck pain, arthralgias Skin: denies rash Neuro: denies headaches, numbness, weakness PFSH Medical History ADHD (attention deficit hyperactivity disorder) (Chronic) Generalized anxiety disorder (Chronic) Hepatitis C infection (Chronic) Major depressive disorder (Chronic) Substance use disorder (Inactive) Hx of IVDU, Methadone through [facility] Surgical History History of left inguinal hernia repair (Acute) at [facility] S/P tonsillectomy (Acute) Social History Smoking/Tobacco Use Status: Current every day Tobacco Type: cigarettes Alcohol Intake: former Drug use: Current Sobriety Substance use type: former substance user Do you feel safe at home: Yes Do you feel safe in your relationship?: Yes Exam Narrative Exam Narrative: Constitutional: well and [id number]-[id number], pleasant, con versing normally HENT: head atraumatic/normocephalic/normal inspection, mucous membranes moist, poor dentition throughout with multiple dental caries, pain with percussion to right and left rear upper molars, mild erythema surrounding the right rear upper molar, no edema/fluctuance of the gingiva, no tongue elevation, normal voice, no pooling of secretions, bilateral TMs and canals normal, no mastoid tenderness bilaterally Eyes: conjunctiva normal, sclera normal, pupils 3mm b/l Neck: no stridor, normal ROM, trachea midline Resp: normal work of breathing Cardio: normal rate, normal rhythm Skin: warm, dry, normal color, no rash Neuro: alert, not altered, grossly non-focal, normal tone, normal gait Ext: Moving all extremities equally Psych: normal mood, normal affect, normal behavior Course Vital Signs Vital signs: Vital Signs Temperature 37.2 C 03/03/20 17:06 Pulse 51 L 03/03/20 17:06 Respiratory Rate 15 03/03/20 17:06 Blood Pressure 146/76 H 03/03/20 17:06 Pulse Oximetry 99 03/03/20 17:06 Temperature 37.2 C 03/03/20 17:06 Temperature Source Temporal Artery Scan 03/03/20 17:06 Pulse 51 L 03/03/20 17:06 Respiratory Rate 15 03/03/20 17:06 Respiratory Effort Non-Labored 03/03/20 17:08 Blood Pressure 146/76 H 03/03/20 17:06 Blood Pressure Position Sitting 03/03/20 17:06 Pulse Oximetry 99 03/03/20 17:06 Oxygen Delivery Method Room Air 03/03/20 17:06 Oxygen Flow Rate 0 03/03/20 17:06 Pain Level 7 03/03/20 17:15
[2020-03-03] MEDS: Ibuprofen 600 MG TAB PO (17:41)
[2020-03-03] MEDS: Penicillin V POTASSIUM 500 MG TAB PO (17:41)
== END 2020-03-03 17:40 | disposition home or self-care (01) ==
PROVIDERS: Emergency Provider Student in an Organized Health Care Education/Training Program; PCP Nurse Practitioner Family
DX: K08.89 Other specified disorders of teeth and supporting structures (principal); K04.7 Periapical abscess without sinus
CPT/HCPCS: 99283

== ENCOUNTER 2020-03-12 06:26 | Emergency (ER) | payer MEDICAID, SELFPAY ==
[2020-03-12 06:29] VITALS: BP 158/86; PULSE 71; RESP 16; TEMP 36.8; O2SAT 95
--- NOTE | 2020-03-12 06:36 | ED.GENADUL_ITS ---
Discharge Plan Disposition Patient Disposition: HOME Condition: Stable Discharge Details Chief Complaint: DentalOral Clinical Impression: Pain, dental Primary Care Provider: Lili Cabrera ED Provider: Kishan Corae Home Meds and New Rx's Prescriptions: New amoxicillin-pot clavulanate [Augmentin] 875-125 mg tablet 1 tab PO BID Qty: 20 RF: 0 Continued albuterol sulfate [ProAir HFA] 200 PUFF HFA aerosol inhaler 2 puff Inhalation PRN PRNRF: 0 methadone 10 MG/ML concentrate 65 mg PO DAILY RF: 0 Discharge Instructions Instructions: Toothache (ED) Additional Instructions: follow up as scheduled with your dentist you can take 1000mg tylenol and 600mg ibuprofen every 6 hours as needed for pain if you develop fevers, inability to swallow liquids or difficulty breathing return to the emergency department Medical Decision Making 29 yo male with hx of hepatitic c and adhd comes in with left lower dental pain after being treated for a right sided dental infection a week ago and is off antibiotics. Denies fevers, dyspnea or difficulty swallowing. On exam has numerous dental caries and pain with percussion to left posterior 2 molars without swelling and no pain over hyoid or restricted neck movements and no submandibular swelling, no findings to suggest ludwigs, rpa, captain/check airman or epiglotitis or pharyngitis. Will place on antibiotics and he states he has dentist appt set up in 2 weeks. Return precautions given Differential Diagnosis Differential Diagnosis: pulpitis, caries, abscess HPI General Mode of arrival: ambulatory . Date/Time Provider Initiated Documentation: 03/12/20 06:27 . Limitations to Documentation: no limitations . Information obtained by: patient . History of Present Illness 29 year old M presents to the emergency department with the chief complaint of left lower dental pain, described as moderate, and is localized to the mouth. Patient reports no radiation. Patient started experiencing this day(s) (2) and it has been constant. No relieving factors improve symptom(s), No exacerbating factors reported . Patient notes no other symptoms.. Related Data Home Medications Medication Instructions Recorded Confirmed albuterol sulfate [ProAir HFA] 2 puff INHALATION PRN PRN 09/18/13 03/12/20 methadone 65 mg PO DAILY 02/06/18 03/12/20 amoxicillin-pot clavulanate 1 tab PO BID #20 tab 03/12/20 [Augmentin] Previous Rx's Medication Instructions Recorded amoxicillin-pot clavulanate 1 tab PO BID #20 tab 03/12/20 [Augmentin] Allergies Allergy/AdvReac Type Severity Reaction Status Date / Time No Known Allergies Allergy Verified 03/12/20 06:31 General Stated Complaint: DentalOral JAVIER: 5 Review of Systems All systems reviewed & are unremarkable except as noted in HPI and below Constitutional Constitutional: Denies chills, Denies fever(s) and Denies weakness Cardiovascular Cardiovascular: Denies chest pain and Denies dyspnea Respiratory Respiratory: Denies cough and Denies dyspnea Gastrointestinal Gastrointestinal: Denies abdominal pain, Denies nausea and Denies vomiting Musculoskeletal Musculoskeletal: Denies joint swelling Neurologic Neurologic: Denies weakness Psychiatric Psychiatric: Denies depression [facility] Medical History (Updated 03/12/20 @ 06:36 by Kishan Corea MD) ADHD (attention deficit hyperactivity disorder) (Chronic) Generalized anxiety disorder (Chronic) Hepatitis C infection (Chronic) Major depressive disorder (Chronic) Substance use disorder (Inactive) Hx of IVDU, Methadone through [facility] Surgical History History of left inguinal hernia repair (Acute) at [facility] S/P tonsillectomy (Acute) Social History Smoking/Tobacco Use Status: Current every day Tobacco Type: cigarettes Alcohol Intake: former Drug use: Current Sobriety Substance use type: former substance user Do you feel safe at home: Yes Do you feel safe in your relationship?: Yes Exam Const General: no acute distress Orientation: alert HENMT Head: normal to inspection Ears: external ears normal General nose exam: external nose normal Mouth: moist mucous membranes Eyes General: appearance normal, both eyes and all related structures Neck Neck: normal visual inspection Resp Effort & Inspection: normal respiratory effort and able to speak in complete sentences Cardio Rate: regular rate Skin General skin exam: no rashes or lesions noted Neuro General: patient alert and patient oriented x3 Extrem General: normal to inspection Psych Mental Status: mental status grossly normal Course Vital Signs Vital signs: Vital Signs Temperature 36.8 C 03/12/20 06:29 Pulse 71 03/12/20 06:29 Respiratory Rate 16 03/12/20 06:29 Blood Pressure 158/86 H 03/12/20 06:29 Pulse Oximetry 95 03/12/20 06:29 Temperature 36.8 C 03/12/20 06:29 Temperature Source Temporal Artery Scan 03/12/20 06:29 Pulse 71 03/12/20 06:29 Respiratory Rate 16 03/12/20 06:29 Respiratory Effort Non-Labored 03/12/20 06:33 Blood Pressure 158/86 H 03/12/20 06:29 Blood Pressure Position Sitting 03/12/20 06:29 Pulse Oximetry 95 03/12/20 06:29 Oxygen Delivery Method Room Air 03/12/20 06:29 Oxygen Flow Rate 0 03/12/20 06:29 Pain Level 8 03/12/20 06:29
[2020-03-12] MEDS: Amoxicillin 875/Clav. 125 TAB PO (06:39)
[2020-03-12] MEDS: Ibuprofen 600 MG TAB PO (06:39)
== END 2020-03-12 06:45 | disposition home or self-care (01) ==
LOC: ER 06:36
PROVIDERS: Emergency Provider Emergency Medicine; PCP Nurse Practitioner Family
DX: R68.84 Jaw pain (principal)
CPT/HCPCS: 99283

== ENCOUNTER 2020-04-05 13:31 | Emergency (ER) | payer MEDICAID, SELFPAY ==
[2020-04-05 13:34] VITALS: BP 114/70; PULSE 65; RESP 15; TEMP 36.9; O2SAT 98
--- NOTE | 2020-04-05 14:01 | W.ED.GENAD ---
Discharge Plan Disposition Patient Disposition: HOME Condition: Stable Discharge Details Chief Complaint: Abd Prob Clinical Impression: Pain in right testicle Primary Care Provider: Lili Cabrera ED Provider: Liliana Smart Home Meds and New Rx's Prescriptions: No Action albuterol sulfate [ProAir HFA] 200 PUFF HFA aerosol inhaler 2 puff Inhalation PRN PRNRF: 0 methadone 10 MG/ML concentrate 65 mg PO DAILY RF: 0 Discharge Instructions Instructions: Inguinal Hernia (ED), Testicle Pain (ED) Additional Instructions: At this time your urine culture is pending. Urine sent to the lab to rule out infection. If this culture is positive you will be called to be placed on antibiotics. Please come to the x-ray department for your scheduled ultrasound as instructed. You may come to the emergency room after ultrasound to receive results. Return to the ER sooner or be seen sooner for any worsening pain, trouble urinating, nausea vomiting fever or any concerns. No heavy lifting over 50 pounds, may try cold compresses. Referrals: Lili Cabrera, JULIETTE [Primary Care Provider] - Discharge Data Discharge Date/Time-TO BE ENTERED AT DEPARTURE: 04/05/20 14:30 Medical Decision Making At this time urinalysis ordered and urine GC chlamydia rule out infection, will order an outpatient ultrasound for Tuesday discussed this with patient, verbalizes understanding. Discussed strict return instructions to return if any worsening pain problems urinating or any complaints. Verbalized understanding. Differential diagnosis includes orchitis, epididymitis, testicular torsion, UTI, inguinal hernia. HPI General Mode of arrival: ambulatory. Date/Time Provider Initiated Documentation: 04/05/20 13:46. Limitations to Documentation: no limitations. Information obtained by: patient. HPI Narrative: 29-year-old male presents to the ER with right-sided groin and testicle pain which has been getting worse for the last 4 weeks. Pain increased the last 3 days. Denies any problems urinating or burning with urination denies any penile discharge. Denies any trauma to the area. On initial exam he does have some mild tenderness noted to his right testicle no significant swelling erythema or redness noted. No palpable hernia noted to the inguinal canal. Reports pain is sharp and crampy. Related Data Home Medications Medication Instructions Recorded Confirmed albuterol sulfate [ProAir HFA] 2 puff INHALATION PRN PRN 09/18/13 04/05/20 methadone 65 mg PO DAILY 02/06/18 04/05/20 Allergies Allergy/AdvReac Type Severity Reaction Status Date / Time No Known Allergies Allergy Verified 04/05/20 13:39 General Stated Complaint: Abd Prob JAVIER: 3 Review of Systems Narrative: Constitutional: Negative for weight loss, alert and oriented, well groomed, normal body habitus, appears comfortable. HEENT: Denies trauma, headaches, blurry vision, nasal discharge, sore throat, trouble swallowing. Chest: Denies chest pain, palpitations, irregular rhythm, hypertension. Respiratory: Denies Shortness of breath, cough, hemoptysis. GI: Denies abdominal pain, nausea, vomiting, diarrhea, constipation. : Denies dysuria, hematuria, flank pain, rectal bleeding. Reports right groin pain and testicle tenderness Neuro: Denies dizziness, blurry vision, weakness, syncope, headache or facial numbness. Hematologic: Denies easy bruising, intolerance to heat or cold, hair loss. [facility] Medical History ADHD (attention deficit hyperactivity disorder) (Chronic) Generalized anxiety disorder (Chronic) Hepatitis C infection (Chronic) Major depressive disorder (Chronic) Substance use disorder (Inactive) Hx of IVDU, Methadone through [facility] Surgical History History of left inguinal hernia repair (Acute) at [facility] S/P tonsillectomy (Acute) Family History Mother , at 47 of lung cancer COPD (chronic obstructive pulmonary disease) Lung cancer Father Bladder cancer COPD (chronic obstructive pulmonary disease) Brother No problems noted. Brother Substance abuse Asthma Brother Substance abuse Asthma Sister No problems noted. Sister No problems noted. Daughter No problems noted. Maternal Grandfather Asthma Maternal Grandmother Cancer Unknown type COPD (chronic obstructive pulmonary disease) Paternal Grandfather Stroke Heart disease Myocardial infarction Paternal Grandmother Stroke Social History Smoking/Tobacco Use Status: Current every day Tobacco Type: cigarettes Alcohol Intake: former Drug use: Current Sobriety Substance use type: former substance user Do you feel safe at home: Yes Do you feel safe in your relationship?: Yes Exam Narrative Exam Narrative: Constitutional: Alert and oriented x3. Appears stated age. Normal body habitus. Head: Normocephalic, no trauma. Eyes: Pupils PERRLA, Red reflex noted, EOM's intact. Eyelids symmetrical without lesions, discharge, or swelling. ENT: Bilateral TM's WNL, External ear normal to inspection, no mastoid TTP, swelling, or erythema, Nasal turbinates WNL, no nasal discharge. Normal dentition, Posterior pharynx WNL, no exudate. Chest: RRR, Normal S1, S2, distal pulses intact. Resp: Lungs clear to auscultation bilaterally, no wheezes, rales, or rhonchi. Musculoskeletal: Normal gait, 5/5 strength to all four extremities. : Witness at bedside morning L&D for exam, no suspicious lesions. Right testy is tender with palpation. Traumatic reflex intact. No palpable inguinal canal noted. Skin: No suspicious rashes or lesions. Capillary refill less than 2 sec. Neurologic: Cranial nerves II-XII intact. Alert and oriented x 3. DTR's intact. Hematologic/Lymphatic: No ecchymosis, no lymphadenopathy. Course Vital Signs Vital signs: Vital Signs Temperature 36.9 C 04/05/20 13:34 Pulse 65 04/05/20 13:34 Respiratory Rate 15 04/05/20 13:34 Blood Pressure 114/70 04/05/20 13:34 Pulse Oximetry 98 04/05/20 13:34 Temperature 36.9 C 04/05/20 13:34 Temperature Source Temporal Artery Scan 04/05/20 13:34 Pulse 65 04/05/20 13:34 Respiratory Rate 15 04/05/20 13:34 Respiratory Effort Non-Labored 04/05/20 13:34 Blood Pressure 114/70 04/05/20 13:34 Blood Pressure Position Sitting 04/05/20 13:34 Pulse Oximetry 98 04/05/20 13:34 Oxygen Delivery Method Room Air 04/05/20 13:34 Oxygen Flow Rate 0 04/05/20 13:34 Pain Level 8 04/05/20 13:34
[2020-04-05 14:22] LABS: Bilirubin Negative (Negative); Blood Negative (Negative); Clarity Clear (Clear); Glucose Negative (Negative); Ketones Negative (Negative); Leukocyte Esterase Negative (Negative); Nitrite Negative (Negative); Specific Gravity 1.025 (1.005-1.025); Urobilinogen 0.2 EU/dL (Up TO 0.2)
[2020-04-07 14:07] LABS: Chlamydia Result Negative (Negative); GC Result Negative (Negative)
== END 2020-04-05 14:30 | disposition home or self-care (01) ==
LOC: ER 14:29
PROVIDERS: Emergency Provider Registered Nurse Emergency; PCP Nurse Practitioner Family
DX: N50.811 Right testicular pain (principal)
CPT/HCPCS: 87491; 87591; 99282; 81003; 99283

== ENCOUNTER 2020-04-29 12:35 | Emergency (ER) | payer MEDICAID, SELFPAY ==
[2020-04-29 12:41] VITALS: BP 147/77; PULSE 62; RESP 18; TEMP 36.6; O2SAT 99
--- NOTE | 2020-04-29 13:09 | ED.GENADUL_ITS ---
Discharge Plan Disposition Patient Disposition: HOME Condition: Stable Discharge Details Clinical Impression: Dental infection Primary Care Provider: Lili Cabrera ED Provider: Ubaldo Rondon Home Meds and New Rx's Prescriptions: New amoxicillin 875 mg tablet 875 mg PO BID 10 Days Qty: 20 RF: 0 Continued albuterol sulfate [ProAir HFA] 200 PUFF HFA aerosol inhaler 2 puff Inhalation PRN PRNRF: 0 methadone 10 MG/ML concentrate 65 mg PO DAILY RF: 0 Discharge Instructions Instructions: Toothache (ED) Additional Instructions: Amoxicillin as directed. [id number] Tylenol and/or Motrin as directed for discomfort. Cool and/or warm compresses every 2 hours for 20 minutes. Please watch for new or worsening symptoms and return to the ER for any concerns. Otherwise follow-up with your outpatient dentist as already scheduled. Medical Decision Making 29-year-old gentleman presents after breaking his tooth. He contacted his dentist who recommended initiating antibiotic therapy. Patient denies any facial swelling, fever, bad taste in his mouth. He appears well, nontoxic, no acute distress. I do believe that initiating an antibiotic is reasonable given his poor dentition throughout. No evidence of dental abscess. Medical Records Medical records reviewed: Yes I reviewed the patient's medical records. HPI General Mode of arrival: ambulatory . Date/Time Provider Initiated Documentation: 04/29/20 12:49 . Limitations to Documentation: no limitations . Information obtained by: patient . HPI Narrative: This is a 29-year-old male, current smoker, presenting requesting antibiotics for dental infection. He states that he has poor dentition at baseline, a few days ago his left upper molar broke. He is scheduled to be seen by his dentist in roughly 2 weeks, contacted his dentist today who recommended starting antibiotics to prevent any infection so that they can proceed with dental extraction as scheduled. Patient denies fever, ear pain, sore throat, facial swelling. He has no additional questions or concerns Related Data Home Medications Medication Instructions Recorded Confirmed albuterol sulfate [ProAir HFA] 2 puff INHALATION PRN PRN 09/18/04/29/20 methadone 65 mg PO DAILY 02/06/18 04/29/20 amoxicillin 875 mg PO BID 10 Days #20 tab 04/29/20 Previous Rx's Medication Instructions Recorded amoxicillin 875 mg PO BID 10 Days #20 tab 04/29/20 Allergies Allergy/AdvReac Type Severity Reaction Status Date / Time No Known Allergies Allergy Verified 04/29/20 12:46 General Stated Complaint: DentalOral JAVIER: 4 Review of Systems Constitutional Constitutional: Denies fever(s) ENT Ears, Nose, Mouth, and Throat: Denies neck pain and Denies sore throat Musculoskeletal Musculoskeletal: Denies neck pain Integumentary/Breasts Skin/Breast: Denies rash [facility] Medical History (Updated 04/29/20 @ 13:13 by LORA Goetz) ADHD (attention deficit hyperactivity disorder) Generalized anxiety disorder Hepatitis C infection Major depressive disorder Substance use disorder Hx of IVDU, Methadone through [facility] Surgical History History of left inguinal hernia repair at [facility] S/P tonsillectomy Family History Mother , at 47 of lung cancer COPD (chronic obstructive pulmonary disease) Lung cancer Father Bladder cancer COPD (chronic obstructive pulmonary disease) Brother No problems noted. Brother Substance abuse Asthma Brother Substance abuse Asthma Sister No problems noted. Sister No problems noted. Daughter No problems noted. Maternal Grandfather Asthma Maternal Grandmother Cancer Unknown type COPD (chronic obstructive pulmonary disease) Paternal Grandfather Stroke Heart disease Myocardial infarction Paternal Grandmother Stroke Social History Smoking/Tobacco Use Status: Current every day Tobacco Type: cigarettes Alcohol Intake: former Drug use: Current Sobriety Substance use type: former substance user Details: Goes to the Methadone clinic 3 x week Do you feel safe at home: Yes Do you feel safe in your relationship?: Yes Exam Const General: cooperative, healthy appearing, comfortable and no acute distress Orientation: alert and awake HENMT Head: normal to inspection, normocephalic and atraumatic Ears: external ears normal, TM's normal bilaterally and EAC's normal General nose exam: external nose normal Face and sinus: normal facial exam Mouth: moist mucous membranes Teeth and gingiva: poor dentition (Throughout) Throat: posterior oropharynx normal Eyes Conjunctivae: conjunctivae normal Sclera: sclerae normal Neck Neck: normal visual inspection, full ROM, no lymphadenopathy, trachea midline, supple and nontender Resp Effort & Inspection: normal respiratory effort and able to speak in complete sentences Auscultation: clear to auscultation bilaterally Cardio Rate: regular rate Rhythm: regular rhythm Skin General skin exam: no rashes or lesions noted Neuro General: patient alert, patient awake, moves all extremities and no focal motor deficits Sensory Exam: no sensory deficits noted Psych Appearance: grossly normal Mental Status: mental status grossly normal Course Vital Signs Vital signs: Vital Signs Temperature 36.6 C 04/29/20 12:41 Pulse 62 04/29/20 12:41 Respiratory Rate 18 04/29/20 12:41 Blood Pressure 147/77 H 04/29/20 12:41 Pulse Oximetry 99 04/29/20 12:41 Temperature 36.6 C 04/29/20 12:41 Temperature Source Temporal Artery Scan 04/29/20 12:41 Pulse 62 04/29/20 12:41 Respiratory Rate 18 04/29/20 12:41 Respiratory Effort Non-Labored 04/29/20 12:44 Blood Pressure 147/77 H 04/29/20 12:41 Blood Pressure Position Sitting 04/29/20 12:41 Pulse Oximetry 99 04/29/20 12:41 Oxygen Delivery Method Room Air 04/29/20 12:41 Oxygen Flow Rate 0 04/29/20 12:41 Pain Level 7 04/29/20 12:47
== END 2020-04-29 13:16 | disposition home or self-care (01) ==
PROVIDERS: Emergency Provider Physician Assistant; PCP Nurse Practitioner Family
DX: R68.84 Jaw pain (principal); K04.7 Periapical abscess without sinus; S02.5XXA Fracture of tooth (traumatic), initial encounter for closed fracture; X58.XXXA Exposure to other specified factors, initial encounter
CPT/HCPCS: 99283

== ENCOUNTER 2020-05-18 18:07 | Emergency (ER) | payer MEDICAID, SELFPAY ==
[2020-05-18 18:12] VITALS: BP 146/58; PULSE 68; RESP 16; TEMP 37; O2SAT 99
[2020-05-18] MEDS: Clindamycin 300 MG CAP PO (18:21)
--- NOTE | 2020-05-18 18:21 | ED.GENADUL_ITS ---
Discharge Plan Disposition Patient Disposition: HOME Condition: Stable Discharge Details Clinical Impression: Dental infection Primary Care Provider: Lili Cabrera ED Provider: Ubaldo Rondon Home Meds and New Rx's Prescriptions: New clindamycin HCl 300 mg capsule 300 mg PO TID 10 Days Qty: 30 RF: 0 Continued albuterol sulfate [ProAir HFA] 200 PUFF HFA aerosol inhaler 2 puff Inhalation PRN PRNRF: 0 methadone 10 MG/ML concentrate 65 mg PO DAILY RF: 0 Discharge Instructions Instructions: Dental Abscess (ED) Additional Instructions: Clindamycin as directed. Uvlw-jva-[id number] Tylenol and/or Motrin as directed for discomfort. Cool and/or warm compresses every 2 hours for 20 minutes. Please watch for new or worsening symptoms and return to the ER for any concerns. Oth erwise contact your oral surgeon tomorrow to see if they would prefer you be evaluated sooner than your scheduled appointment. Medical Decision Making 29-year-old gentleman presents with right upper dental pain that began 3 days ago while he was eating and possibly broke his tooth. He is scheduled to be seen by an oral surgeon to have all of his teeth extracted. Patient appears well, nontoxic. Airway is patent. He is afebrile. Will recommend [id number] Tylenol and/or Motrin for discomfort. He was recently on amoxicillin for a left dental infection, will place him on clindamycin now. Recommend cool and/or warm compresses every 2 hours for 20 minutes. Return to the ER for any concerns otherwise follow-up with his oral surgeon as scheduled. First dose of antibiotics given here in the ER Medical Records Medical records reviewed: Yes I reviewed the patient's medical records. HPI General Mode of arrival: ambulatory . Date/Time Provider Initiated Documentation: 05/18/20 18:08 . Limitations to Documentation: no limitations . Information obtained by: patient . HPI Narrative: This is a 29-year-old gentleman, history of hepatitis, depression, anxiety, ADHD, takes methadone daily, presents to the ER now for right upper dental pain. He reports the pain is been present for the past 3 days after breaking his tooth while eating. He feels the pain is getting worse, now moderate with mild swelling. Radiates to his right ear. He does continue to smoke. Patient was recently on amoxicillin, approximately 2 weeks ago, for a left-sided dental infection. He took the antibiotics as directed and that infection cleared up. He has since seen a dentist who will now be referring him to an oral surgeon in [facility] to have all of his teeth extracted. Patient has no additional questions or concerns. He denies taking any [id number] medications for his symptoms. Related Data Home Medications Medication Instructions Recorded Confirmed albuterol sulfate [ProAir HFA] 2 puff INHALATION PRN PRN 09/18/13 05/18/20 methadone 65 mg PO DAILY 02/06/18 05/18/20 clindamycin HCl 300 mg PO TID 10 Days #30 cap 05/18/20 Previous Rx's Medication Instructions Recorded clindamycin HCl 300 mg PO TID 10 Days #30 cap 05/18/20 Allergies Allergy/AdvReac Type Severity Reaction Status Date / Time No Known Allergies Allergy Verified 05/18/20 18:15 General Stated Complaint: DentalOral JAVIER: 4 Review of Systems Constitutional Constitutional: Denies fever(s) and Denies headache(s) Eyes Eyes: Denies eye discharge ENT Ears, Nose, Mouth, and Throat: Denies ear discharge, Reports otalgia, Reports facial pain, Denies headache(s) and Denies sore throat Cardiovascular Cardiovascular: Denies dyspnea Respiratory Respiratory: Denies cough and Denies dyspnea Integumentary/Breasts Skin/Breast: Denies rash Neurologic Neurologic: Denies headache(s) [facility] Medical History (Updated 05/18/20 @ 18:28 by LORA Goetz) ADHD (attention deficit hyperactivity disorder) Generalized anxiety disorder Hepatitis C infection Major depressive disorder Substance use disorder Hx of IVDU, Methadone through [facility] Surgical History History of left inguinal hernia repair at [facility] S/P tonsillectomy Family History Mother , at 47 of lung cancer COPD (chronic obstructive pulmonary disease) Lung cancer Father Bladder cancer COPD (chronic obstructive pulmonary disease) Brother No problems noted. Brother Substance abuse Asthma Brother Substance abuse Asthma Sister No problems noted. Sister No problems noted. Daughter No problems noted. Maternal Grandfather Asthma Maternal Grandmother Cancer Unknown type COPD (chronic obstructive pulmonary disease) Paternal Grandfather Stroke Heart disease Myocardial infarction Paternal Grandmother Stroke Social History Smoking/Tobacco Use Status: Current every day Tobacco Type: cigarettes Alcohol Intake: former Drug use: Daily Substance use type: former substance user and marijuana Details: Goes to the Methadone clinic 3 x week Do you feel safe at home: Yes Do you feel safe in your relationship?: Yes Exam Const General: cooperative, healthy appearing, comfortable and no acute distress Orientation: alert and awake [facility] Head: normal to inspection, normocephalic and atraumatic Ears: hearing grossly normal bilaterally, external ears normal, TM's normal bilaterally and EAC's normal Face and sinus: normal facial exam Face images: 1. Mild discomfort to palpation. No point tenderness over the TMJ. Able to fully open and close his mouth. Without erythema, warmth, swelling, induration or fluctuance. Mouth: oral mucosae normal and moist mucous membranes Teeth and gingiva: poor dentition (Throughout.) Teeth image: 1. This tooth is fractured-decayed to the gumline. Localized discomfort. Without obvious swelling or erythema. No pointing abscess Eyes Conjunctivae: conjunctivae normal Sclera: sclerae normal Neck Neck: normal visual inspection, full ROM, no lymphadenopathy, trachea midline, supple and nontender Resp Effort & Inspection: normal respiratory effort and able to speak in complete sentences Auscultation: clear to auscultation bilaterally Cardio Rate: regular rate Rhythm: regular rhythm Skin General skin exam: no rashes or lesions noted Neuro General: patient alert, patient awake, moves all extremities and no focal motor deficits Sensory Exam: no sensory deficits noted Psych Appearance: grossly normal Mental Status: mental status grossly normal Course Vital Signs Vital signs: Vital Signs Temperature 37 C 05/18/20 18:12 Pulse 68 05/18/20 18:12 Respiratory Rate 16 05/18/20 18:12 Blood Pressure 146/58 H 05/18/20 18:12 Pulse Oximetry 99 05/18/20 18:12 Temperature 37 C 05/18/20 18:12 Temperature Source Skin 05/18/20 18:12 Pulse 68 05/18/20 18:12 Respiratory Rate 16 05/18/20 18:12 Respiratory Effort Non-Labored 05/18/20 18:12 Blood Pressure 146/58 H 05/18/20 18:12 Blood Pressure Position Sitting 05/18/20 18:12 Pulse Oximetry 99 05/18/20 18:12 Oxygen Delivery Method Room Air 05/18/20 18:12 Oxygen Flow Rate 0 05/18/20 18:12 Pain Level 7 05/18/20 18:12
[2020-05-18 18:23] VITALS: BP 146/58; PULSE 68; RESP 16; TEMP 37; O2SAT 99
== END 2020-05-18 18:33 | disposition home or self-care (01) ==
PROVIDERS: Emergency Provider Physician Assistant; PCP Nurse Practitioner Family
DX: R68.84 Jaw pain (principal); K04.7 Periapical abscess without sinus; S02.5XXA Fracture of tooth (traumatic), initial encounter for closed fracture; X58.XXXA Exposure to other specified factors, initial encounter
CPT/HCPCS: 99283

== ENCOUNTER 2020-06-01 08:55 | Emergency (ER) | payer MEDICAID, SELFPAY ==
[2020-06-01 08:58] VITALS: BP 148/88; PULSE 89; RESP 15; TEMP 36.8; O2SAT 97
--- NOTE | 2020-06-01 09:13 | W.ED.GENAD ---
Discharge Plan Disposition Patient Disposition: HOME Condition: Stable Discharge Details Clinical Impression: Pain, dental Primary Care Provider: Lili Cabrera ED Provider: Ubaldo Rondon Home Meds and New Rx's Prescriptions: Continued albuterol sulfate [ProAir HFA] 200 PUFF HFA aerosol inhaler 2 puff Inhalation PRN PRNRF: 0 methadone 10 MG/ML concentrate 65 mg PO DAILY RF: 0 Discharge Instructions Instructions: Toothache (ED) Additional Instructions: At this time there is no clear indication that your tooth is actively infected, antibiotics are not required. As we discussed, cool and/or warm compresses as tolerated. Salt water gargles as tolerated. [id number]-odtqgrr Tylenol and/or Motrin as directed for discomfort. Cptp-tid-wzpsazz Orajel as directed. Please watch for new or worsening symptoms and return to the ER for any concerns. I do recommend reaching out to your dentist tomorrow to discuss trying to be seen sooner than already scheduled. Medical Decision Making 29-year-old gentleman presents with right upper dental pain and ear pain. He is concerned about possible infection. Clinically he appears well, nontoxic. No evidence of fever, lymphadenopathy, facial swelling or tenderness, trismus, mastoid tenderness. Bilateral ear examination unremarkable. Patient with poor dentition throughout although no signs of obvious infection or abscess. Upon reviewing his recent visits, I have actually seen him twice and have provided him with a prescription of amoxicillin and then subsequently at his next visit clindamycin. I do not see any obvious signs of infection today and I do not believe that he requires a third trial of antibiotics. I stressed the importance of conservative [id number]-zfg-[id number] measures, watching for new or worsening symptoms that may require antibiotic therapy, otherwise the importance of contacting his dentist tomorrow for prompt outpatient reevaluation. Patient is agreeable to this plan and has no additional questions or concerns. Medical Records Medical records reviewed: Yes I reviewed the patient's medical records. HPI General Mode of arrival: ambulatory. Date/Time Provider Initiated Documentation: 06/01/20 08:55. Limitations to Documentation: no limitations. Information obtained by: patient. HPI Narrative: This is a 29-year-old gentleman with past medical history that includes ADHD, anxiety, hepatitis C, depression, history of substance abuse, now on methadone. He is a current smoker. He states that he has bad teeth for a long time. He does have a dentist established and had an appointment to have some teeth removed but there is an emergency that day and the dentist had to cancel. Patient reports that he has chronic dental pain, but feels as though his right upper molar is more painful over the past 4 days than usual with some discomfort radiating up to his ear. He is presenting to the ER today to be sure that there are no signs of infection and he does not require any antibiotics. He denies headache, ear drainage, sore throat, facial swelling, fever, cough, shortness of breath. Related Data Home Medications Medication Instructions Recorded Confirmed albuterol sulfate [ProAir HFA] 2 puff INHALATION PRN PRN 09/18/13 06/01/20 methadone 65 mg PO DAILY 02/06/18 06/01/20 Allergies Allergy/AdvReac Type Severity Reaction Status Date / Time No Known Allergies Allergy Verified 06/01/20 09:03 General Stated Complaint: DentalOral JAVIER: 4 Review of Systems Constitutional Constitutional: Denies fever(s) and Denies headache(s) ENT Ears, Nose, Mouth, and Throat: Denies ear discharge, Reports otalgia, Denies headache(s), Reports mouth pain, Denies neck pain and Denies sore throat Musculoskeletal Musculoskeletal: Denies neck pain Integumentary/Breasts Skin/Breast: Denies rash Neurologic Neurologic: Denies headache(s) [facility] Medical History ADHD (attention deficit hyperactivity disorder) Generalized anxiety disorder Hepatitis C infection Major depressive disorder Substance use disorder Hx of IVDU, Methadone through [facility] Surgical History History of left inguinal hernia repair at [facility] S/P tonsillectomy Family History Mother , at 47 of lung cancer COPD (chronic obstructive pulmonary disease) Lung cancer Father Bladder cancer COPD (chronic obstructive pulmonary disease) Brother No problems noted. Brother Substance abuse Asthma Brother Substance abuse Asthma Sister No problems noted. Sister No problems noted. Daughter No problems noted. Maternal Grandfather Asthma Maternal Grandmother Cancer Unknown type COPD (chronic obstructive pulmonary disease) Paternal Grandfather Stroke Heart disease Myocardial infarction Paternal Grandmother Stroke Social History Smoking/Tobacco Use Status: Current every day Tobacco Type: cigarettes Alcohol Intake: former Drug use: Daily Substance use type: former substance user and marijuana Details: Goes to the Methadone clinic 3 x week Do you feel safe at home: Yes Do you feel safe in your relationship?: Yes Exam Const General: cooperative, healthy appearing, comfortable and no acute distress Orientation: alert and awake [facility] Head: normal to inspection, normocephalic and atraumatic Ears: external ears normal, TM's normal bilaterally, TM normal on the left and mastoids normal General nose exam: external nose normal Face and sinus: normal facial exam and no tenderness Mouth: oral mucosae normal and moist mucous membranes Teeth and gingiva: gingiva normal, caries and poor dentition Teeth image: 1. Point tenderness. Tooth is decayed to the gumline. No localized swelling, erythema, obvious abscess. Throat: posterior oropharynx normal and uvula midline Eyes General: appearance normal, both eyes and all related structures Alignment and Position: alignment normal Periorbital: periorbital findings normal Eyelids: eyelids normal Conjunctivae: conjunctivae normal Sclera: sclerae normal Cornea: corneas normal Pupils: PERRL EOM: EOM intact bilaterally Direct ophthalmoscopy: normal light reflex Neck Neck: normal visual inspection, full ROM, no lymphadenopathy, trachea midline, supple and nontender Resp Effort & Inspection: normal respiratory effort and able to speak in complete sentences Auscultation: clear to auscultation bilaterally Cardio Rate: regular rate Rhythm: regular rhythm Skin General skin exam: no rashes or lesions noted Neuro General: patient alert, patient awake, moves all extremities and no focal motor deficits Sensory Exam: no sensory deficits noted Psych Appearance: grossly normal Mental Status: mental status grossly normal Course Vital Signs Vital signs: Vital Signs Temperature 36.8 C 06/01/20 08:58 Pulse 89 06/01/20 08:58 Respiratory Rate 15 06/01/20 08:58 Blood Pressure 148/88 H 06/01/20 08:58 Pulse Oximetry 97 06/01/20 08:58 Temperature 36.8 C 06/01/20 08:58 Temperature Source Temporal Artery Scan 06/01/20 08:58 Pulse 89 06/01/20 08:58 Respiratory Rate 15 06/01/20 08:58 Respiratory Effort Non-Labored 06/01/20 08:58 Blood Pressure 148/88 H 06/01/20 08:58 Blood Pressure Position Sitting 06/01/20 08:58 Pulse Oximetry 97 06/01/20 08:58 Oxygen Delivery Method Room Air 06/01/20 08:58 Oxygen Flow Rate 0 06/01/20 08:58 Pain Level 7 06/01/20 09:02
== END 2020-06-01 09:19 | disposition home or self-care (01) ==
PROVIDERS: Emergency Provider Physician Assistant; PCP Nurse Practitioner Family
DX: R68.84 Jaw pain (principal); H92.01 Otalgia, right ear
CPT/HCPCS: 99282; 99283

== ENCOUNTER 2020-07-25 15:05 | Emergency (ER) | payer MEDICAID, SELFPAY ==
[2020-07-25 15:16] VITALS: BP 132/74; PULSE 69; RESP 18; O2SAT 97
--- NOTE | 2020-07-25 15:28 | ED.GENADUL_ITS ---
Discharge Plan Disposition Patient Disposition: HOME Condition: Stable Discharge Details Clinical Impression: Dental caries Primary Care Provider: Lili Cabrera ED Provider: Liliana Smart Home Meds and New Rx's Prescriptions: New amoxicillin-pot clavulanate [Augmentin] 875-125 mg tablet 1 tab PO BID 10 Days Qty: 20 RF: 0 No Action albuterol sulfate [ProAir HFA] 200 PUFF HFA aerosol inhaler 2 puff Inhalation PRN PRNRF: 0 methadone 10 MG/ML concentrate 65 mg PO DAILY RF: 0 Discharge Instructions Instructions: Dental Caries (ED) Additional Instructions: Take antibiotics and medications as directed. Warm salt gargles up to 3 times a day. Follow-up with your dentist. Referrals: Lili Cabrera NP [Primary Care Provider] - Discharge Data Discharge Date/Time-TO BE ENTERED AT DEPARTURE: 07/25/20 15:44 Medical Decision Making 29-year-old male presents to the ER with chief complaint of dental pain. He does have generalized poor dentition. He states that he took ibuprofen approximately 4 hours prior to arrival. He has a past medical history of hepatitis C, major depressive disorder, generalized anxiety disorder, ADHD. Patient placed on Augmentin twice a day x10 days. Was given tramadol here in the department. Instructed to take Tylenol or ibuprofen as needed. Instructed to follow-up with dentist. HPI General Mode of arrival: ambulatory . Date/Time Provider Initiated Documentation: 07/25/20 15:23 . Limitations to Documentation: no limitations . Information obtained by: patient . HPI Narrative: 29-year-old male presents to the ER with chief complaint of dental pain. He does have generalized poor dentition. He states that he took ibuprofen approximately 4 hours prior to arrival. He has a past medical history of hepatitis C, major depressive disorder, generalized anxiety disorder, ADHD. Related Data Home Medications Medication Instructions Recorded Confirmed albuterol sulfate [ProAir HFA] 2 puff INHALATION PRN PRN 09/18/13 07/25/20 methadone 65 mg PO DAILY 02/06/18 07/25/20 amoxicillin-pot clavulanate 1 tab PO BID 10 Days #20 tab 07/25/20 [Augmentin] Previous Rx's Medication Instructions Recorded amoxicillin-pot clavulanate 1 tab PO BID 10 Days #20 tab 07/25/20 [Augmentin] Allergies Allergy/AdvReac Type Severity Reaction Status Date / Time No Known Allergies Allergy Verified 07/25/20 15:19 General Stated Complaint: DentalOral JAVIER: 4 Review of Systems All systems reviewed & are unremarkable except as noted in HPI and below ENT Ears, Nose, Mouth, and Throat: Denies change in voice, Reports dental pain (Generalized poor dentition) and Denies dysphagia Gastrointestinal Gastrointestinal: Denies dysphagia [facility] Medical History (Updated 07/25/20 @ 15:35 by Liliana Smart) ADHD (attention deficit hyperactivity disorder) Generalized anxiety disorder Hepatitis C infection Major depressive disorder Substance use disorder Hx of IVDU, Methadone through [facility] Surgical History History of left inguinal hernia repair at [facility] S/P tonsillectomy Family History Mother , at 47 of lung cancer COPD (chronic obstructive pulmonary disease) Lung cancer Father Bladder cancer COPD (chronic obstructive pulmonary disease) Brother No problems noted. Brother Substance abuse Asthma Brother Substance abuse Asthma Sister No problems noted. Sister No problems noted. Daughter No problems noted. Maternal Grandfather Asthma Maternal Grandmother Cancer Unknown type COPD (chronic obstructive pulmonary disease) Paternal Grandfather Stroke Heart disease Myocardial infarction Paternal Grandmother Stroke Social History Smoking/Tobacco Use Status: Current every day Tobacco Type: cigarettes Smoking risk assessment performed?: Yes Alcohol Intake: former Drug use: Daily Substance use type: former substance user and marijuana Details: Goes to the Methadone clinic 3 x week Do you feel safe at home: Yes Do you feel safe in your relationship?: Yes Exam [facility] Head: normal to inspection Ears: hearing grossly normal bilaterally, external ears normal and TM's normal bilaterally General nose exam: external nose normal Face and sinus: normal facial exam Teeth and gingiva: caries and gingiva abnormal diffusely erythematous Throat: posterior oropharynx normal, tonsils normal and uvula midline Course Vital Signs Vital signs: Vital Signs Pulse 69 07/25/20 15:16 Respiratory Rate 18 07/25/20 15:16 Blood Pressure 132/74 07/25/20 15:16 Pulse Oximetry 97 07/25/20 15:16 Pulse 69 07/25/20 15:16 Respiratory Rate 18 07/25/20 15:16 Respiratory Effort Non-Labored 07/25/20 15:20 Blood Pressure 132/74 07/25/20 15:16 Blood Pressure Position Sitting 07/25/20 15:16 Pulse Oximetry 97 07/25/20 15:16 Oxygen Delivery Method Room Air 07/25/20 15:16 Oxygen Flow Rate 0 07/25/20 15:16 Pain Level 4 07/25/20 15:20
[2020-07-25] MEDS: traMADol 50 MG TAB PO (15:42)
[2020-07-25] MEDS: Amoxicillin 875/Clav. 125 TAB PO (15:42)
== END 2020-07-25 15:44 | disposition home or self-care (01) ==
LOC: ER 15:47
PROVIDERS: Emergency Provider Registered Nurse Emergency; PCP Nurse Practitioner Family
DX: R68.84 Jaw pain (principal); K02.9 Dental caries, unspecified
CPT/HCPCS: 99283

== ENCOUNTER 2020-08-20 08:16 | Emergency (ER) | payer MEDICAID, SELFPAY ==
--- NOTE | 2020-08-20 08:15 | DI.RAD_ITS ---
EXAM: XR ABD FLAT UPRIGHT PA CHEST CLINICAL HISTORY: Vomiting. TECHNIQUE: 2D digital imaging was performed. COMPARISON: CR RIGHT RIBS TO INCLUDE CXR from 03/20/2014 FINDINGS: Acute abdominal series was performed comprised of a frontal chest radiograph as well as supine and up right views of the abdomen. Heart size normal. Lungs are clear. No pleural effusions. In the abdomen there is no free air. Air is seen throughout the nondilated colon. No evidence of sm all bowel obstruction. No gastric distention evident. No calcifications seen over the kidneys nor a long the course of the ureters. Regional bones appear unremarkable. IMPRESSION: Air is seen throughout colon. The colon is not distended. There is no small bowel obstruction no fr ee air. Lungs are clear. Heart size normal. DATA REPOSITORY: RADIATION DOSE DELIVERED:
[2020-08-20 08:18] VITALS: BP 163/92; PULSE 67; RESP 17; TEMP 36.9; O2SAT 98
--- NOTE | 2020-08-20 08:28 | ED.GENADUL_ITS ---
Discharge Plan Disposition Patient Disposition: HOME Condition: Stable Discharge Details Clinical Impression: Vomiting Primary Care Provider: Lili Cabrera ED Provider: Liliana Smart Home Meds and New Rx's Prescriptions: New ondansetron 4 mg tablet,disintegrating 4 mg PO Q8H PRN5 Days Qty: 15 RF: 0 No Action albuterol sulfate [ProAir HFA] 200 PUFF HFA aerosol inhaler 2 puff Inhalation PRN PRNRF: 0 methadone 10 MG/ML concentrate 65 mg PO DAILY RF: 0 Discharge Instructions Instructions: Acute Nausea and Vomiting (ED) Additional Instructions: Follow up with primary care provider in 3-5 days. Return to ED sooner if any worsening vomiting, abdominal pain unable to keep down fluids, or concerns. Increase oral fluids. Take medications as prescribed. Stand Alone Forms: Work Release Referrals: Lili Cabrera, TELEPHONE OPERATOR [Primary Care Provider] - Medical Decision Making 29-year-old male presents to the ED with chief complaint of vomiting in the mornings for the last 3 days. He reports having some abdominal pain post emesis but then it dissipates in approximately 3 to 4 hours. He denies any diarrhea, no dysuria or problems urinating. He was sent home from work and is requesting a work note. He is currently undergoing tapering of his methadone dose. He has been on 80 mg of methadone for long period of time and has recently been reduced down to 65 mg. He currently denies any abdominal pain or any other symptoms at this time. He denies any hematemesis or hematochezia. Past surgical history includes hernia repair, tonsillectomy. Does have a past medical history of ADHD, hepatitis C, depressive disorder, history of substance use disorder. Basic work-up ordered including CBC, CMP, urinalysis, UDS. Labs at this point are largely unremarkable. Patient has been tolerating p.o. intake throughout stay and prior to arrival. EXAM: XR ABD FLAT UPRIGHT PA CHEST FINDINGS: Acute abdominal series was performed comprised of a frontal chest radiograph as well as supine and upright views of the abdomen. Heart size normal. Lungs are clear. No pleural effusions. In the abdomen there is no free air. Air is seen throughout the nondilated colon. No evidence of small bowel obstruction. No gastric distention evident. No calcifications seen over the kidneys nor along the course of the ureters. Regional bones appear unremarkable. IMPRESSION: Air is seen throughout colon. The colon is not distended. There is no small bowel obstruction no free air. Lungs are clear. Heart size normal. At this time I do feel it is safe to discharge patient to home. Differential diagnosis includes but not limited to GERD, opiate withdrawal, gastroenteritis. Discussed with patient strict return instructions, instructed to follow-up with PCP, verbalized understanding. This text was generated using [employer] dictation system, please disregard any oddities of phrase or misspellings. HPI General Mode of arrival: ambulatory . Date/Time Provider Initiated Documentation: 08/20/20 08:16 . Limitations to Documentation: no limitations . Information obtained by: patient . HPI Narrative: 29-year-old male presents to the ED with chief complaint of vomiting in the mornings for the last 3 days. He reports having some abdominal pain post emesis but then it dissipates in approximately 3 to 4 hours. He denies any diarrhea, no dysuria or problems urinating. He was sent home from work and is requesting a work note. He is currently undergoing tapering of his methadone dose. He has been on 80 mg of methadone for long period of time and has recently been reduced down to 65 mg. He currently denies any abdominal pain or any other symptoms at this time. He denies any hematemesis or hematochezia. Past surgical history includes hernia repair, tonsillectomy. Does have a past medical history of ADHD, hepatitis C, depressive disorder, history of substance use disorder. Related Data Home Medications Medication Instructions Recorded Confirmed albuterol sulfate [ProAir HFA] 2 puff INHALATION PRN PRN 09/18/13 08/20/20 methadone 65 mg PO DAILY 02/06/18 08/20/20 ondansetron 4 mg PO Q8H PRN 5 Days #15 tab 08/20/20 Previous Rx's Medication Instructions Recorded ondansetron 4 mg PO Q8H PRN 5 Days #15 tab 08/20/20 Allergies Allergy/AdvReac Type Severity Reaction Status Date / Time No Known Allergies Allergy Verified 08/20/20 08:22 General Stated Complaint: Nausea/Vomit/Diar JAVIER: 3 Review of Systems Narrative: Constitutional: Negative for weight loss, alert and oriented, well groomed, normal body habitus, appears comfortable. HEENT: Denies trauma, headaches, blurry vision, nasal discharge, sore throat, trouble swallowing. Chest: Denies chest pain, palpitations, irregular rhythm, hypertension. Respiratory: Denies Shortness of breath, cough, hemoptysis. GI: Denies diarrhea, constipation. Positive nausea vomiting. : Denies dysuria, hematuria, flank pain, rectal bleeding. Neuro: Denies dizziness, blurry vision, weakness, syncope, headache or facial numbness. Hematologic: Denies easy bruising, intolerance to heat or cold, hair loss. [facility] Medical History (Updated 08/20/20 @ 09:40 by Liliana Smart) ADHD (attention deficit hyperactivity disorder) Generalized anxiety disorder Hepatitis C infection Major depressive disorder Substance use disorder Hx of IVDU, Methadone through [facility] Surgical History History of left inguinal hernia repair at [facility] S/P tonsillectomy Family History Mother , at 47 of lung cancer COPD (chronic obstructive pulmonary disease) Lung cancer Father Bladder cancer COPD (chronic obstructive pulmonary disease) Brother No problems noted. Brother Substance abuse Asthma Brother Substance abuse Asthma Sister No problems noted. Sister No problems noted. Daughter No problems noted. Maternal Grandfather Asthma Maternal Grandmother Cancer Unknown type COPD (chronic obstructive pulmonary disease) Paternal Grandfather Stroke Heart disease Myocardial infarction Paternal Grandmother Stroke Social History Smoking/Tobacco Use Status: Current every day Tobacco Type: cigarettes Smoking risk assessment performed?: Yes Alcohol Intake: former Drug use: Daily Substance use type: former substance user and marijuana Details: Goes to the Methadone clinic 3 x week Do you feel safe at home: Yes Do you feel safe in your relationship?: Yes Exam Narrative Exam Narrative: Constitutional: Alert and oriented x3. Appears stated age. Normal body habitus. Head: Normocephalic, no trauma. Eyes: Pupils PERRLA, Red reflex noted, EOM's intact. Eyelids symmetrical without lesions, discharge, or swelling. ENT: Bilateral TM's WNL, External ear normal to inspection, no mastoid TTP, swelling, or erythema, Nasal turbinates WNL, no nasal discharge. Poor dentition, posterior pharynx WNL, no exudate. Chest: RRR, Normal S1, S2, distal pulses intact. Resp: Lungs clear to auscultation bilaterally, no wheezes, rales, or rhonchi. Abdomen: Soft, nontender to palpation, nondistended. Musculoskeletal: Normal gait, 5/5 strength to all four extremities. Skin: No suspicious rashes or lesions. Capillary refill less than 2 sec. Neurologic: Cranial nerves II-XII intact. Alert and oriented x 3. DTR's intact. Hematologic/Lymphatic: No ecchymosis, no lymphadenopathy. Course Vital Signs Vital signs: Vital Signs Temperature 36.9 C 08/20/20 08:18 Pulse 67 08/20/20 08:18 Respiratory Rate 17 08/20/20 08:18 Blood Pressure 163/92 H 08/20/20 08:18 Pulse Oximetry 98 08/20/20 08:18 Temperature 36.9 C 08/20/20 08:18 Temperature Source Temporal Artery Scan 08/20/20 08:18 Pulse 67 08/20/20 08:18 Respiratory Rate 17 08/20/20 08:18 Respiratory Effort 08/20/20 08:22 Blood Pressure 163/92 H 08/20/20 08:18 Blood Pressure Position Sitting 08/20/20 08:18 Pulse Oximetry 98 08/20/20 08:18 Oxygen Delivery Method Room Air 08/20/20 08:18 Oxygen Flow Rate 0 08/20/20 08:18 Pain Level 0 08/20/20 08:18
[2020-08-20 08:50] LABS: Abs Immature Grans 0.02 10^3/uL (0.0-0.06); Absolute Basophil Count 0.02 10^3/uL (0.0-0.2); Absolute Eosinophil Count 0.08 10^3/uL (0.0-0.7); Absolute Neutrophil Count 4.49 10^3/uL (1.2-6.7); Basophils % 0.3; Eosinophils % 1.1; HCT 42.8 % (40.0-50.0); Immature Grans % 0.3; Lymphocytes % 27.1; MCHC 32.7 % (32.0-36.0); MCV 91.6 fL (80-95); MPV 9.1 fL (8.0-11.0); Monocytes % 7.1; Neutrophils % 64.1; Nucleated RBC 0 %; Platelet Count 273 10^3/uL (130-400); RBC 4.67 10^6/uL (4.36-5.78); RDW 13.1 % (11.8-14.1); RDW-SD 43.7 fL; WBC 7.01 10^3/uL (4.4-10.8)
[2020-08-20 09:03] LABS: ALT 59 U/L (16-63); AST 45 U/L (15-37); Albumin 3.9 g/dL (3.4-5.0); Alkaline Phosphatase 93 U/L (46-116); Anion Gap 7.8 mmol/L (3-11); BUN 12 mg/dL (7-18); Bilirubin, Total 0.4 mg/dL (0.2-1.0); CO2 29.2 mmol/L (21.0-32.0); CREATININE 0.83 mg/dL (0.70-1.30); Calcium 8.9 mg/dL (8.5-10.1); Chloride 103 mmol/L (98-107); Glucose 106 mg/dL (74-106); Magnesium 1.8 mg/dL (1.8-2.4); Potassium 3.8 mmol/L (3.5-5.1); Sodium 140 mmol/L (136-145); Total Protein 7.6 g/dL (6.4-8.2)
[2020-08-20 09:03] LABS: Bilirubin Negative (Negative); Blood Negative (Negative); Clarity Clear (Clear); Glucose Negative (Negative); Ketones Negative (Negative); Leukocyte Esterase Negative (Negative); Nitrite Negative (Negative); Specific Gravity >= 1.030 (1.005-1.025)
[2020-08-20 09:16] LABS: Bacteria Negative HPF (Negative); Crystals Negative HPF (Negative); Epithelial Cells Rare HPF (Negative); Mucus Trace (Negative); RBC 0-2 HPF (0-2); WBC 0-2 HPF (0-5)
[2020-08-20 09:17] LABS: C & S Indicated? No; Casts Negative LPF (Negative)
[2020-08-20 09:52] LABS: *AMPHETAMINES SCREEN URINE Negative (Negative); *BARBITURATES SCREEN URINE Negative (Negative); *BENZODIAZEPINES SCREEN URINE Negative (Negative); Cannabinoids THC POSITIVE (Negative); Cocaine Screen,Urine Negative (Negative); METHADONE URINE SCREEN POSITIVE (Negative); OPIATES URINE SCREEN Negative (Negative); Tricyclic Antidepressants Negative (Negative)
== END 2020-08-20 09:56 | disposition home or self-care (01) ==
PROVIDERS: Emergency Provider Registered Nurse Emergency; PCP Nurse Practitioner Family
DX: R11.2 Nausea with vomiting, unspecified (principal); Z02.79 Encounter for issue of other medical certificate
CPT/HCPCS: 36415; 80053; 80307; 99284; 74022; 81003; 81015; 83735; 85025; 99283

== ENCOUNTER 2020-08-28 21:48 | Outpatient (REF) | payer MEDICAID, SELFPAY ==
[2020-08-28 22:03] LABS: Amylase 50 U/L (25-115); Lipase 45 U/L (73-393)
== END 2020-08-28 22:08 ==
LOC: LBN 21:48
PROVIDERS: PCP Nurse Practitioner Family; Visit Provider Nurse Practitioner Family
DX: R11.0 Nausea (principal)
CPT/HCPCS: 83690; 82150

== ENCOUNTER 2020-09-04 08:33 | Emergency (ER) | payer MEDICAID, SELFPAY ==
[2020-09-04 08:37] VITALS: BP 145/74; PULSE 51; TEMP 36.6; O2SAT 99
--- NOTE | 2020-09-04 08:43 | W.ED.GENAD ---
Discharge Plan Disposition Patient Disposition: HOME Condition: Stable Discharge Details Clinical Impression: Sprain of right thumb, Thumb tendonitis Primary Care Provider: Lili Cabrera ED Provider: Tereza Pink Home Meds and New Rx's Prescriptions: New ibuprofen 600 mg tablet 600 mg PO Q6H PRNQty: 20 RF: 0 Continued famotidine [Pepcid] 20 mg tablet 20 mg PO DAILY Qty: 30 RF: 1 albuterol sulfate [ProAir HFA] 200 PUFF HFA aerosol inhaler 2 puff Inhalation PRN PRNRF: 0 methadone 10 MG/ML concentrate 65 mg PO DAILY RF: 0 Discharge Instructions Instructions: Tendinitis (ED) Additional Instructions: Rest, ice, and elevate the affected area as much as possible. Alternate tylenol and motrin as needed and directed for pain. Wear the splint as much as possible to help with pain and swelling. Follow-up with your primary care doctor in 1 week. You can follow-up with orthopedics if your symptoms do not improve or worsen for further evaluation. Return to the emergency department with any worsening or new concerning symptoms. Stand Alone Forms: Work Release Referrals: Edgar George MD [ [facility] STAFF PHYSICIAN] - Discharge Data Discharge Physician: Tereza Pink Medical Decision Making 29yo M w/ R thumb pain for the past several weeks due to repetitive activities at work. Patient is right-handed. He denies any known injury. He has tenderness to palpation of the base of the right thumb with pain with range of motion. No evidence of trauma. Neurovascularly intact. Do not suspect tendon injury as he has full muscle strength. Suspect most likely tendinitis versus muscle strain. Will give a dose of ibuprofen and refer for x-ray. If x-ray negative will place in thumb spica splint. X-ray negative for acute findings. Patient placed in thumb spica splint. He was given orthopedic follow-up information if needed. Usual and customary return precautions given prior to discharge. Medical Records Medical records reviewed: Yes I reviewed the patient's medical records. Imaging Data Radiologic Study: Radiologist's impression: XR THUMB RT CLINICAL HISTORY: s/p overuse, pain base of thumb, r/o fx. TECHNIQUE: 2D digital imaging was performed. COMPARISON: No exams were available for comparison FINDINGS: BONES: No acute fracture is present. No bony destructive lesion is seen. JOINTS: No dislocation present. SOFT TISSUE: Normal. IMPRESSION: No evidence of acute fracture, dislocation, or subluxation. HPI General Mode of arrival: ambulatory. Date/Time Provider Initiated Documentation: 09/04/20 08:42. Limitations to Documentation: no limitations. Information obtained by: patient. HPI Narrative: Patient is a 29-year-old male presents with right thumb pain for the past several weeks due to repetitive activities at work. 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 He states he mostly has pain in the base of his right thumb with lifting and picking things up. He denies any numbness or tingling. Related Data Home Medications Medication Instructions Recorded Confirmed albuterol sulfate [ProAir HFA] 2 puff INHALATION PRN PRN 09/18/13 09/04/20 methadone 65 mg PO DAILY 02/06/18 09/04/20 famotidine 20 mg tablet 20 mg PO DAILY #30 tab 08/28/20 09/04/20 ibuprofen 600 mg PO Q6H PRN #20 tab 09/04/20 Previous Rx's Medication Instructions Recorded famotidine 20 mg tablet 20 mg PO DAILY #30 tab 08/28/20 ibuprofen 600 mg PO Q6H PRN #20 tab 09/04/20 Allergies Allergy/AdvReac Type Severity Reaction Status Date / Time No Known Allergies Allergy Verified 09/04/20 08:45 General Stated Complaint: Orthopedic JAVIER: 4 Review of Systems All systems reviewed & are unremarkable except as noted in HPI and below Constitutional Constitutional: Reports as per HPI, Denies chills and Denies fever(s) Eyes Eyes: Denies blurry vision ENT Ears, Nose, Mouth, and Throat: Denies dizziness, Denies sore throat and Denies throat swelling Cardiovascular Cardiovascular: Denies chest pain and Denies dyspnea Respiratory Respiratory: Denies cough and Denies dyspnea Gastrointestinal Gastrointestinal: Denies abdominal pain, Denies diarrhea and Denies vomiting Genitourinary Genitourinary: Denies hematuria and Denies dysuria Musculoskeletal Musculoskeletal: Denies back pain and Denies numbness Integumentary/Breasts Skin/Breast: Denies lesions and Denies rash Neurologic Neurologic: Denies dizziness, Denies localized weakness and Denies numbness Allergic/Immunologic Allergic/Immunologic: Denies throat swelling [facility] Medical History (Updated 09/04/20 @ 09:42 by Tereza Pink DO) ADHD (attention deficit hyperactivity disorder) Generalized anxiety disorder Hepatitis C infection Major depressive disorder Substance use disorder Hx of IVDU, Methadone through [facility] Surgical History History of left inguinal hernia repair at [facility] S/P tonsillectomy Family History Mother , at 47 of lung cancer COPD (chronic obstructive pulmonary disease) Lung cancer Father Bladder cancer COPD (chronic obstructive pulmonary disease) Brother No problems noted. Brother Substance abuse Asthma Brother Substance abuse Asthma Sister No problems noted. Sister No problems noted. Daughter No problems noted. Maternal Grandfather Asthma Maternal Grandmother Cancer Unknown type COPD (chronic obstructive pulmonary disease) Paternal Grandfather Stroke Heart disease Myocardial infarction Paternal Grandmother Stroke Social History Smoking/Tobacco Use Status: Current every day Tobacco Type: cigarettes Smoking risk assessment performed?: Yes Alcohol Intake: former Drug use: Daily Substance use type: former substance user and marijuana Details: Goes to the Methadone clinic 3 x week Do you feel safe at home: Yes Do you feel safe in your relationship?: Yes Exam Const General: cooperative, healthy appearing and no acute distress HENMT Head: normal to inspection Mouth: oral mucosae normal Eyes General: appearance normal, both eyes and all related structures Neck Neck: normal visual inspection Resp Effort & Inspection: normal respiratory effort and able to speak in complete sentences Cardio Rate: regular rate Skin General skin exam: no rashes or lesions noted Neuro General: patient alert, patient awake and patient oriented x3 Motor: muscle tone normal throughout Extrem General: normal to inspection, full ROM and capillary refill normal Other: Tenderness to palpation to base of right thumb on palmar aspect. There is no erythema, edema, crepitus, ecchymosis noted. Motor and sensory grossly intact with normal muscle strength with abduction abduction, flexion and extension. Psych Appearance: grossly normal Affect: normal affect Course Vital Signs Vital signs: Vital Signs Temperature 97.9 F 09/04/20 08:37 Pulse 51 L 09/04/20 08:37 Blood Pressure 145/74 H 09/04/20 08:37 Pulse Oximetry 99 09/04/20 08:37 Temperature 97.9 F 09/04/20 08:37 Temperature Source Temporal Artery Scan 09/04/20 08:37 Pulse 51 L 09/04/20 08:37 Blood Pressure 145/74 H 09/04/20 08:37 Blood Pressure Position Sitting 09/04/20 08:37 Pulse Oximetry 99 09/04/20 08:37 Oxygen Delivery Method Room Air 09/04/20 08:37 Oxygen Flow Rate 0 09/04/20 08:37 Pain Level 5 09/04/20 08:37
[2020-09-04] MEDS: Ibuprofen 600 MG TAB PO (09:00)
--- NOTE | 2020-09-04 09:43 | DI.RAD_ITS ---
EXAM: XR THUMB RT CLINICAL HISTORY: s/p overuse, pain base of thumb, r/o fx. TECHNIQUE: 2D digital imaging was performed. COMPARISON: No exams were available for comparison FINDINGS: BONES: No acute fracture is present. No bony destructive lesion is seen. JOINTS: No dislocation present. SOFT TISSUE: Normal. IMPRESSION: No evidence of acute fracture, dislocation, or subluxation. DATA REPOSITORY: RADIATION DOSE DELIVERED:
== END 2020-09-04 10:16 | disposition home or self-care (01) ==
PROVIDERS: Emergency Provider Physician Assistant; PCP Nurse Practitioner Family
DX: S63.601A Unspecified sprain of right thumb, initial encounter (principal); X50.3XXA Overexertion from repetitive movements, initial encounter; M70.841 Other soft tissue disorders related to use, overuse and pressure, right hand; Y99.0 Civilian activity done for income or pay
CPT/HCPCS: 29125; 99284; 73140

== ENCOUNTER 2020-09-24 14:51 | Emergency (ER) | payer MEDICAID, SELFPAY ==
[2020-09-24 14:59] VITALS: BP 144/70; PULSE 72; RESP 18; TEMP 36.5; O2SAT 98
--- NOTE | 2020-09-24 15:12 | W.ED.GENAD ---
Discharge Plan Disposition Patient Disposition: HOME Condition: Stable Discharge Details Clinical Impression: Poor dentition, Toothache Primary Care Provider: Lili Cabrera ED Provider: Liliana Smart Home Meds and New Rx's Prescriptions: New penicillin V potassium 500 mg tablet 500 mg PO BID 10 Days Qty: 20 RF: 0 No Action famotidine [Pepcid] 20 mg tablet 20 mg PO DAILY Qty: 30 RF: 1 albuterol sulfate [ProAir HFA] 200 PUFF HFA aerosol inhaler 2 puff Inhalation PRN PRNRF: 0 methadone 10 MG/ML concentrate 65 mg PO DAILY RF: 0 ibuprofen 600 mg tablet 600 mg PO Q6H PRNQty: 20 RF: 0 Discharge Instructions Instructions: Toothache (ED) Additional Instructions: Take antibiotic as directed for at least 7 days, return for any worsening pain not relieved by Tylenol or ibuprofen or topical benzocaine, swelling in your face or throat, trouble swallowing, Fever. Continue to follow-up with your dentist. Stand Alone Forms: Work Release Referrals: Lili Cabrera NP [Primary Care Provider] - Medical Decision Making 29-year-old male presents to the ED chief complaint of right lower dental pain. He states that approximately on he was eating some corn chips and may have broken a lower molar. He has had increased pain radiating up to his ear. He has been alternating warm and cold compresses, he does report using salt water gargles, has been taking Tylenol and ibuprofen last taken last night. This provided little to no relief. He denies any fever, chills, chest pain, shortness of breath or any other concerns. He does have a history of poor dentition and is currently working with the 2 specialist in the [facility] that deal with dental problems for patients that are currently being seen at the [facility]. He is a smoker and has a history of hepatitis C he denies any current use of illicit drugs or alcohol. Patient was offered a dental block which he declined at this time states it is not that bad patient was given some topical Hurricaine gel here in department placed to the area of discomfort, given penicillin VK 500 mg p.o. x1 here in the department to prevent development of dental infection, was given prescription for penicillin. Patient given home care instructions and encouraged to continue to follow-up with his dentist as previously scheduled. Discussed return instructions, verbalized understanding. Patient was otherwise hemodynamically stable no concerns for blood with his angina, or other abnormality. This text was generated using [employer] dictation system, please disregard any oddities of phrase or misspellings. HPI General Mode of arrival: ambulatory. Date/Time Provider Initiated Documentation: 09/24/20 14:54. Limitations to Documentation: no limitations. Information obtained by: patient. HPI Narrative: 29-year-old male presents to the ED chief complaint of right lower dental pain. He states that approximately on he was eating some corn chips and may have broken a lower molar. He has had increased pain radiating up to his ear. He has been alternating warm and cold compresses, he does report using salt water gargles, has been taking Tylenol and ibuprofen last taken last night. This provided little to no relief. He denies any fever, chills, chest pain, shortness of breath or any other concerns. He does have a history of poor dentition and is currently working with the 2 specialist in the [facility] that deal with dental problems for patients that are currently being seen at the [facility]. He is a smoker and has a history of hepatitis C he denies any current use of illicit drugs or alcohol. Related Data Home Medications Medication Instructions Recorded Confirmed albuterol sulfate [ProAir HFA] 2 puff INHALATION PRN PRN 09/18/13 09/24/20 methadone 65 mg PO DAILY 02/06/18 09/24/20 famotidine 20 mg tablet 20 mg PO DAILY #30 tab 08/28/20 09/24/20 ibuprofen 600 mg PO Q6H PRN #20 tab 09/04/20 09/24/20 penicillin V potassium 500 mg PO BID 10 Days #20 tab 09/24/20 Previous Rx's Medication Instructions Recorded famotidine 20 mg tablet 20 mg PO DAILY #30 tab 08/28/20 ibuprofen 600 mg PO Q6H PRN #20 tab 09/04/20 penicillin V potassium 500 mg PO BID 10 Days #20 tab 09/24/20 Allergies Allergy/AdvReac Type Severity Reaction Status Date / Time No Known Allergies Allergy Verified 09/24/20 15:03 General Stated Complaint: DentalOral JAVIER: 3 Review of Systems All systems reviewed & are unremarkable except as noted in HPI and below ENT Ears, Nose, Mouth, and Throat: Reports as per HPI, Reports dental pain, Denies dysphagia, Denies vertigo, Reports otalgia (Right), Reports facial pain, Denies sore throat and Denies throat swelling Gastrointestinal Gastrointestinal: Denies dysphagia Neurologic Neurologic: Denies vertigo Allergic/Immunologic Allergic/Immunologic: Denies throat swelling [facility] Medical History ADHD (attention deficit hyperactivity disorder) Generalized anxiety disorder Hepatitis C infection Major depressive disorder Substance use disorder Hx of IVDU, Methadone through [facility] Surgical History History of left inguinal hernia repair at [facility] S/P tonsillectomy Family History Mother , at 47 of lung cancer COPD (chronic obstructive pulmonary disease) Lung cancer Father Bladder cancer COPD (chronic obstructive pulmonary disease) Brother No problems noted. Brother Substance abuse Asthma Brother Substance abuse Asthma Sister No problems noted. Sister No problems noted. Daughter No problems noted. Maternal Grandfather Asthma Maternal Grandmother Cancer Unknown type COPD (chronic obstructive pulmonary disease) Paternal Grandfather Stroke Heart disease Myocardial infarction Paternal Grandmother Stroke Social History Smoking/Tobacco Use Status: Current every day Tobacco Type: cigarettes Smoking risk assessment performed?: Yes Alcohol Intake: former Drug use: Daily Substance use type: former substance user and marijuana Details: Goes to the Methadone clinic 3 x week Do you feel safe at home: Yes Do you feel safe in your relationship?: Yes Exam Narrative Exam Narrative: Constitutional: Alert and oriented x3. Appears stated age. Normal body habitus. Head: Normocephalic, no trauma. Eyes: Pupils PERRLA, Red reflex noted, EOM's intact. Eyelids symmetrical without lesions, discharge, or swelling. ENT: Bilateral TM's WNL, External ear normal to inspection, no mastoid TTP, swelling, or erythema, Nasal turbinates WNL, no nasal discharge. Poor generalized dentition, he does have a broken right lower posterior molar, there is erythema to the gingiva surrounding the base of tooth, no palpable area of fluctuance, no drainage no evidence of abscess at this time. Posterior pharynx slightly erythemic, no exudate. Chest: RRR, Normal S1, S2, distal pulses intact. Resp: Lungs clear to auscultation bilaterally, no wheezes, rales, or rhonchi. Musculoskeletal: Normal gait, 5/5 strength to all four extremities. Skin: No suspicious rashes or lesions. Capillary refill less than 2 sec. Neurologic: Cranial nerves II-XII intact. Alert and oriented x 3. DTR's intact. Hematologic/Lymphatic: No ecchymosis, no cervical lymphadenopathy. Course Vital Signs Vital signs: Vital Signs Temperature 36.5 C 09/24/20 14:59 Pulse 72 09/24/20 14:59 Respiratory Rate 18 09/24/20 14:59 Blood Pressure 144/70 H 09/24/20 14:59 Pulse Oximetry 98 09/24/20 14:59 Temperature 36.5 C 09/24/20 14:59 Temperature Source Tympanic 09/24/20 14:59 Pulse 72 09/24/20 14:59 Respiratory Rate 18 09/24/20 14:59 Respiratory Effort 09/24/20 15:02 Blood Pressure 144/70 H 09/24/20 14:59 Pulse Oximetry 98 09/24/20 14:59 Oxygen Delivery Method Room Air 09/24/20 14:59 Oxygen Flow Rate 0 09/24/20 14:59 Pain Level 6 09/24/20 15:04
[2020-09-24] MEDS: Benzocaine 20% Gel 30 GM JAR MM (15:16)
[2020-09-24] MEDS: Ibuprofen 800 MG TAB PO (15:16)
[2020-09-24] MEDS: Penicillin V POTASSIUM 500 MG TAB PO (15:17)
[2020-09-24] MEDS: Penicillin V POTASSIUM 500 MG TAB, 4 TABS/BTL PO (15:17)
== END 2020-09-24 15:11 | disposition home or self-care (01) ==
PROVIDERS: Emergency Provider Registered Nurse Emergency; PCP Nurse Practitioner Family
DX: R68.84 Jaw pain (principal); K03.81 Cracked tooth
CPT/HCPCS: 99283

== ENCOUNTER 2020-10-25 12:08 | Emergency (ER) | payer MEDICAID, SELFPAY ==
[2020-10-25 12:13] VITALS: BP 172/81; PULSE 60; RESP 16; TEMP 36.4; O2SAT 96
--- NOTE | 2020-10-25 12:35 | ED.GENADUL_ITS ---
Discharge Plan Disposition Patient Disposition: HOME Condition: Stable Discharge Details Clinical Impression: Dental infection Primary Care Provider: Lili Cabrera ED Provider: Jamila Tanner Home Meds and New Rx's Prescriptions: New penicillin V potassium 500 mg tablet 500 mg PO QID 7 Days Qty: 28 RF: 0 Continued albuterol sulfate [ProAir HFA] 200 PUFF HFA aerosol inhaler 2 puff Inhalation PRN PRNRF: 0 methadone 10 MG/ML concentrate 65 mg PO DAILY RF: 0 Discharge Instructions Instructions: Dental Abscess (ED) Additional Instructions: Encourage water intake. You may use Tylenol and/or ibuprofen as needed for discomfort. You may use the topical benzocaine to help with discomfort every 6 hours. Please consider salt water rinses. Please take antibiotics as prescribed. Even if symptoms improve, please take the entire course. Please keep your upcoming appointment with dentist. If you develop new or worsening symptoms please seek care urgently once again. Referrals: Liil Cabrera NP [Primary Care Provider] - Discharge Data Discharge Date/Time-TO BE ENTERED AT DEPARTURE: 10/25/20 13:05 Medical Decision Making Patient is a pleasant 29-year-old male presenting with chief complaint of right lower dental pain. He was seen here last night for pain in the same area. However, he states that he subsequently fractured the tooth behind the when he was seen for last month. States that this occurred approximately 1 week ago. He has been evaluated by his dentist on multiple occasions. They are currently working on getting him in with an oral surgeon that can extract a large quantity of teeth and it continue to manage his opiate dependence. He presents today for increased pain over the past week and swelling to the right lower jaw. Denies any fevers or chills. Pain is worse with eating. He has not taken anything for his discomfort patient is chronically on methadone. On exam, patient appears nontoxic. He is afebrile. He has poor dentition. The #30 #31 to both fractured. He reports a #31 is the newly fractured tooth. He does have some gingival irritation with small amount of swelling and erythema on the buccal side. No pain or swelling on the lingual side. No area of fluctuance to suggest an abscess. Patient does not appear systemically ill. No tonsillar swelling, uvula is midline, no trismus, no lymphadenopathy, no swelling under the tongue. We will treat the patient with Yee Thornton. He has an appointment next week with his dentist which she will keep. Return precautions were discussed. All questions concerns were addressed and he is in agreement this plan. HPI General Mode of arrival: ambulatory . Date/Time Provider Initiated Documentation: 10/25/20 12:35 . Limitations to Documentation: no limitations . Information obtained by: patient, RN notes reviewed and old records reviewed . History of Present Illness 29 year old M presents to the emergency department with the chief complaint of right lower dental pain, described as moderate and similar to prior episodes, with intensity rated at 7. Quality is described as aching, and is localized to the mouth. Patient reports no radiation. Patient started experiencing this week(s) (1) and it has been constant. other things that improve symptom(s), (salt water rinses) Eating worsens symptoms . Patient notes no other symptoms.; denies fever/chills, headaches, loss of appetite, nausea/vomiting and rash. Patient did receive the following treatments prior to arrival, none Related Data Home Medications Medication Instructions Recorded Confirmed albuterol sulfate [ProAir HFA] 2 puff INHALATION PRN PRN 09/18/13 10/25/20 methadone 65 mg PO DAILY 02/06/18 10/25/20 penicillin V potassium 500 mg PO QID 7 Days #28 tab 10/25/20 Previous Rx's Medication Instructions Recorded penicillin V potassium 500 mg PO QID 7 Days #28 tab 10/25/20 Allergies Allergy/AdvReac Type Severity Reaction Status Date / Time No Known Allergies Allergy Verified 10/25/20 12:17 General Stated Complaint: DentalOral JAVIER: 4 Review of Systems Constitutional Constitutional: Reports as per HPI, Denies chills, Denies fatigue, Denies fever(s), Denies headache(s) and Denies poor appetite Eyes Eyes: Denies change in vision and Denies irritation ENT Ears, Nose, Mouth, and Throat: Reports as per HPI, Reports dental pain, Denies dysphagia, Denies dizziness, Denies dry mouth, Denies ear discharge, Denies otalgia, Reports facial pain, Denies headache(s), Denies hoarseness, Denies lip swelling, Denies nasal congestion, Denies odynophagia and Denies sore throat Cardiovascular Cardiovascular: Reports as per HPI and Denies chest pain Respiratory Respiratory: Reports as per HPI and Denies cough Gastrointestinal Gastrointestinal: Reports as per HPI, Denies dysphagia, Denies nausea, Denies odynophagia and Denies vomiting Integumentary/Breasts Skin/Breast: Reports as per HPI, Denies erythema, Denies rash and Denies skin pain Neurologic Neurologic: Reports as per HPI, Denies dizziness and Denies headache(s) Endocrine Endocrine: Denies fatigue Allergic/Immunologic Allergic/Immunologic: Denies lip swelling [facility] Medical History (Updated 10/25/20 @ 12:52 by LORA Fallon) ADHD (attention deficit hyperactivity disorder) Generalized anxiety disorder Hepatitis C infection Major depressive disorder Substance use disorder Hx of IVDU, Methadone through [facility] Surgical History History of left inguinal hernia repair at [facility] S/P tonsillectomy Family History Mother , at 47 of lung cancer COPD (chronic obstructive pulmonary disease) Lung cancer Father Bladder cancer COPD (chronic obstructive pulmonary disease) Brother No problems noted. Brother Substance abuse Asthma Brother Substance abuse Asthma Sister No problems noted. Sister No problems noted. Daughter No problems noted. Maternal Grandfather Asthma Maternal Grandmother Cancer Unknown type COPD (chronic obstructive pulmonary disease) Paternal Grandfather Stroke Heart disease Myocardial infarction Paternal Grandmother Stroke Social History Smoking/Tobacco Use Status: Current every day Tobacco Type: cigarettes Smoking risk assessment performed?: Yes Alcohol Intake: former Drug use: Daily Substance use type: former substance user and marijuana Details: Goes to the Methadone clinic 1 x week Do you feel safe at home: Yes Do you feel safe in your relationship?: Yes Exam Const General: cooperative, healthy appearing, comfortable, no acute distress, well developed and well groomed Nutritional Appearance: average body habitus and well nourished Orientation: alert and awake [facility] Head: normal to inspection, normocephalic and atraumatic Ears: hearing grossly normal bilaterally, external ears normal and TM's normal bilaterally General nose exam: external nose normal and nares normal Face and sinus: normal facial exam, sinuses nontender and face symmetric Mouth: oral mucosae normal, lip normal, tongue normal, moist mucous membranes, no muffled voice, no trismus and No restricted motion Teeth and gingiva: gingiva abnormal (tenderness along fx'ed teeth #30, 31. Small swelling, no fluctuance) and poor dentition (two fracture and decaying teeth right lower dentition) Throat: posterior oropharynx normal, tonsils normal and uvula midline Eyes General: appearance normal, both eyes and all related structures Neck Neck: normal visual inspection, full ROM, no lymphadenopathy, supple and no anterior neck swelling Resp Effort & Inspection: normal respiratory effort, able to speak in complete sentences and no respiratory distress Auscultation: clear to auscultation bilaterally, no rales, no rhonchi and no wheezes Cardio Rate: regular rate Rhythm: regular rhythm Heart Sounds: S1 normal and S2 normal Skin General skin exam: no rashes or lesions noted Trauma: no lacerations or abrasions Neuro General: patient alert and patient awake Cognition: normal cognition Speech: speech normal Gait: normal gait Psych Appearance: grossly normal and well kempt Mental Status: mental status grossly normal Speech and Movement: speech and movement normal Course Vital Signs Vital signs: Vital Signs Temperature 36.4 C L 10/25/20 12:13 Pulse 60 10/25/20 12:13 Respiratory Rate 16 10/25/20 12:13 Blood Pressure 172/81 H 10/25/20 12:13 Pulse Oximetry 96 10/25/20 12:13 Temperature 36.4 C L 10/25/20 12:13 Temperature Source Tympanic 10/25/20 12:13 Pulse 60 10/25/20 12:13 Respiratory Rate 16 10/25/20 12:13 Respiratory Effort Non-Labored 10/25/20 12:15 Blood Pressure 172/81 H 10/25/20 12:13 Blood Pressure Position Sitting 10/25/20 12:13 Pulse Oximetry 96 10/25/20 12:13 Oxygen Delivery Method Room Air 10/25/20 12:13 Oxygen Flow Rate 0 10/25/20 12:13 Pain Level 7 10/25/20 12:18
[2020-10-25] MEDS: Benzocaine 20% Gel 30 GM JAR MM (12:57)
== END 2020-10-25 13:05 | disposition home or self-care (01) ==
PROVIDERS: Emergency Provider Physician Assistant; PCP Nurse Practitioner Family
DX: R68.84 Jaw pain (principal); K03.81 Cracked tooth; K04.7 Periapical abscess without sinus
CPT/HCPCS: 99283

== ENCOUNTER 2020-12-31 10:39 | Emergency (ER) | payer MEDICAID, SELFPAY ==
[2020-12-31 10:44] VITALS: BP 155/82; PULSE 77; RESP 16; TEMP 37.3; O2SAT 99
--- NOTE | 2020-12-31 10:55 | ED.GENADUL_ITS ---
Discharge Plan Disposition Patient Disposition: HOME Condition: Stable Discharge Details Clinical Impression: Pain, dental Primary Care Provider: Lili Cabrera ED Provider: Liliana Smart Home Meds and New Rx's Prescriptions: New amoxicillin-pot clavulanate [Augmentin] 875-125 mg tablet 1 tab PO BID 7 Days Qty: 14 RF: 0 No Action chlorhexidine gluconate 0.12 % mouthwash 15 ml buccal BID Qty: 473 RF: 0 albuterol sulfate [ProAir HFA] 200 PUFF HFA aerosol inhaler 2 puff Inhalation PRN PRNRF: 0 methadone 10 MG/ML concentrate 65 mg PO DAILY RF: 0 Discharge Instructions Instructions: Toothache (ED) Additional Instructions: Keep your dentist appointment. Practice good oral hygiene. Please take Tylenol or Ibuprofen with food every 4-6 hours as needed for pain and swelling. Follow up with primary care provider in 3-5 days. Return to ED sooner if any worsening or concerns. Increase oral fluids. Stand Alone Forms: Work Release Referrals: Lili Cabrera NP [Primary Care Provider] - Discharge Data Discharge Date/Time-TO BE ENTERED AT DEPARTURE: 12/31/20 11:17 Medical Decision Making Patient placed on Augmentin instructed on good oral hygiene, verbalized understanding. Instructed to keep dentist appointment as previously scheduled. HPI General Mode of arrival: ambulatory . Date/Time Provider Initiated Documentation: 12/31/20 10:46 . Limitations to Documentation: no limitations . Information obtained by: patient . HPI Narrative: 30-year-old male with a history of poor dentition presents to the ER chief complaint of right upper and lower dental caries and is requesting an antibiotic for an upcoming dentist appointment. He denies any trouble swallowing no fever no chills is speaking in clear full sentences. No other complaints. Related Data Home Medications Medication Instructions Recorded Confirmed albuterol sulfate [ProAir HFA] 2 puff INHALATION PRN PRN 09/18/13 12/31/20 methadone 65 mg PO DAILY 02/06/18 12/31/20 chlorhexidine gluconate 0.12 % 15 ml BUCCAL BID #473 ml 12/09/20 12/31/20 mouthwash amoxicillin-pot clavulanate 1 tab PO BID 7 Days #14 tab 12/31/20 [Augmentin] Previous Rx's Medication Instructions Recorded chlorhexidine gluconate 0.12 % 15 ml BUCCAL BID #473 ml 12/09/20 mouthwash amoxicillin-pot clavulanate 1 tab PO BID 7 Days #14 tab 12/31/20 [Augmentin] Allergies Allergy/AdvReac Type Severity Reaction Status Date / Time No Known Allergies Allergy Verified 12/31/20 10:49 General Stated Complaint: DentalOral JAVIER: 4 Review of Systems All systems reviewed & are unremarkable except as noted in HPI and below ENT Ears, Nose, Mouth, and Throat: Reports as per HPI [facility] Medical History ADHD (attention deficit hyperactivity disorder) Generalized anxiety disorder Hepatitis C infection Major depressive disorder Substance use disorder Hx of IVDU, Methadone through [facility] Surgical History History of left inguinal hernia repair at [facility] S/P tonsillectomy Family History Mother , at 47 of lung cancer COPD (chronic obstructive pulmonary disease) Lung cancer Father Bladder cancer COPD (chronic obstructive pulmonary disease) Brother No problems noted. Brother Substance abuse Asthma Brother Substance abuse Asthma Sister No problems noted. Sister No problems noted. Daughter No problems noted. Maternal Grandfather Asthma Maternal Grandmother Cancer Unknown type COPD (chronic obstructive pulmonary disease) Paternal Grandfather Stroke Heart disease Myocardial infarction Paternal Grandmother Stroke Social History Smoking/Tobacco Use Status: Current every day Tobacco Type: cigarettes Smoking risk assessment performed?: Yes Alcohol Intake: former Drug use: Daily Substance use type: former substance user and marijuana Details: Goes to the Methadone clinic 1 x week Do you feel safe at home: Yes Do you feel safe in your relationship?: Yes Exam HENMT Head: normal to inspection Ears: external ears normal General nose exam: external nose normal Face and sinus: normal facial exam Teeth and gingiva: caries and poor dentition Throat: posterior oropharynx normal Course Vital Signs Vital signs: Vital Signs Temperature 37.3 C 12/31/20 10:44 Pulse 77 12/31/20 10:44 Respiratory Rate 16 12/31/20 10:44 Blood Pressure 155/82 H 12/31/20 10:44 Pulse Oximetry 99 12/31/20 10:44 Temperature 37.3 C 12/31/20 10:44 Pulse 77 12/31/20 10:44 Respiratory Rate 16 12/31/20 10:44 Respiratory Effort 12/31/20 10:44 Blood Pressure 155/82 H 12/31/20 10:44 Blood Pressure Position Sitting 12/31/20 10:44 Pulse Oximetry 99 12/31/20 10:44 Pain Level 7 12/31/20 10:44
== END 2020-12-31 11:17 | disposition home or self-care (01) ==
PROVIDERS: Emergency Provider Registered Nurse Emergency; PCP Nurse Practitioner Family
DX: R68.84 Jaw pain (principal)
CPT/HCPCS: 99283

== ENCOUNTER 2021-03-05 12:58 | Emergency (ER) | payer MEDICAID, SELFPAY ==
[2021-03-05 13:21] VITALS: BP 125/103; PULSE 65; TEMP 37.3; O2SAT 97
--- NOTE | 2021-03-05 13:34 | W.ED.GENAD ---
Discharge Plan Disposition Patient Disposition: HOME Condition: Improving Discharge Details Clinical Impression: Dental infection Primary Care Provider: Lili Cabrera ED Provider: Toi Elkins Home Meds and New Rx's Prescriptions: New penicillin V potassium 500 mg tablet 500 mg PO TID 10 Days Qty: 30 RF: 0 Continued albuterol sulfate [ProAir HFA] 200 PUFF HFA aerosol inhaler 2 puff Inhalation PRN PRNRF: 0 methadone 10 MG/ML concentrate 65 mg PO DAILY RF: 0 acetaminophen [Acetaminophen Extra Strength] 500 mg Tablet 500 mg PO Q6H PRNRF: 0 ibuprofen 600 mg Tablet 600 mg PO TID PRNRF: 0 Discharge Instructions Instructions: Dental Abscess (ED) Additional Instructions: Please take penicillin every 6 hours today, then every 8 hours by prescription. Follow-up with dentistry/oral surgery as planned. Continue ibuprofen as needed for pain. Warm salt water gargles will aid in soothing your discomfort. Fair return to the emergency department for any acute concerns. Medical Decision Making 30-year-old male with numerous dental caries, partially broken teeth, presents with 2 days of right lower jaw swelling. He does appear to have a right buccal aspect induration and soft tissue swelling without evidence of pointing abscess. He has freestanding follow-up with oral surgery at [facility]. Will place on a course of penicillin. He is stable and appropriate for outpatient management. We discussed the potential of a regional anesthetic which patient declined. HPI General Mode of arrival: ambulatory. Date/Time Provider Initiated Documentation: 03/05/21 13:23. Limitations to Documentation: no limitations. Information obtained by: patient. History of Present Illness 30 year old M presents to the emergency department with the chief complaint of Right jaw pain and swelling, described as moderate and similar to prior episodes, Quality is described as dull and constant, and is localized to the mouth and right. Patient reports no radiation. Patient started experiencing this day(s) and it has been constant. No relieving factors improve symptom(s), No exacerbating factors reported . Patient notes denies fever/chills, headaches, loss of appetite and nausea/vomiting. Patient did receive the following treatments prior to arrival, NSAID Related Data Home Medications Medication Instructions Recorded Confirmed albuterol sulfate [ProAir HFA] 2 puff INHALATION PRN PRN 09/18/13 03/05/21 methadone 65 mg PO DAILY 02/06/18 03/05/21 acetaminophen [Acetaminophen Extra 500 mg PO Q6H PRN 03/05/21 03/05/21 Strength] ibuprofen 600 mg PO TID PRN 03/05/21 03/05/21 penicillin V potassium 500 mg PO TID 10 Days #30 tab 03/05/21 Previous Rx's Medication Instructions Recorded penicillin V potassium 500 mg PO TID 10 Days #30 tab 03/05/21 Allergies Allergy/AdvReac Type Severity Reaction Status Date / Time No Known Allergies Allergy Verified 03/05/21 13:25 General Stated Complaint: DentalOral JAVIER: 4 Review of Systems Narrative: 6 systems reviewed and otherwise negative. [facility] Medical History (Updated 03/05/21 @ 13:38 by Toi Elkins MD) ADHD (attention deficit hyperactivity disorder) Generalized anxiety disorder Hepatitis C infection Major depressive disorder Substance use disorder Hx of IVDU, Methadone through [facility] Surgical History History of left inguinal hernia repair at [facility] S/P tonsillectomy Family History Mother , at 47 of lung cancer COPD (chronic obstructive pulmonary disease) Lung cancer Father Bladder cancer COPD (chronic obstructive pulmonary disease) Brother No problems noted. Brother Substance abuse Asthma Brother Substance abuse Asthma Sister No problems noted. Sister No problems noted. Daughter No problems noted. Maternal Grandfather Asthma Maternal Grandmother Cancer Unknown type COPD (chronic obstructive pulmonary disease) Paternal Grandfather Stroke Heart disease Myocardial infarction Paternal Grandmother Stroke Social History Smoking/Tobacco Use Status: Current every day Tobacco Type: cigarettes Smoking risk assessment performed?: Yes Alcohol Intake: former Drug use: Daily Substance use type: former substance user and marijuana Details: Goes to the Methadone clinic 1 x week Do you feel safe at home: Yes Do you feel safe in your relationship?: Yes Exam Narrative Exam Narrative: GEN: awake, alert, oriented 3. Pleasant, well groomed, interactive. HEAD: Normocephalic, atraumatic ENT: Mucous membranes moist, oropharynx with numerous dental caries, partially broken teeth, right mid mandible with buccal aspect swelling, no pointing fluctuance., External ear exam unremarkable EYES: PERRL, EOMI NECK: Full ROM, no GINI, no menigismus CHEST/RESP: Nontender, clear to auscultation bilateral, no wheeze/rhonchi/rales CARDIOVASCULAR: RRR, no murmur, rub gómez. 2+ Rad pulse bilateral Neuro: Grossly normal neurologic exam, conversant, interactive. Psych: Speech fluent, thoughts congruent, affect normal Course Vital Signs Vital signs: Vital Signs Temperature 37.3 C 03/05/21 13:21 Pulse 65 03/05/21 13:21 Blood Pressure 125/103 H 03/05/21 13:21 Pulse Oximetry 97 03/05/21 13:21 Temperature 37.3 C 03/05/21 13:21 Temperature Source Temporal Artery Scan 03/05/21 13:21 Pulse 65 03/05/21 13:21 Respiratory Effort Non-Labored 03/05/21 13:23 Blood Pressure 125/103 H 03/05/21 13:21 Blood Pressure Position Sitting 03/05/21 13:21 Pulse Oximetry 97 03/05/21 13:21 Oxygen Delivery Method Room Air 03/05/21 13:21 Oxygen Flow Rate 0 03/05/21 13:21 Pain Level 7 03/05/21 13:24
[2021-03-05] MEDS: Penicillin V POTASSIUM 500 MG TAB, 4 TABS/BTL PO (13:48)
== END 2021-03-05 13:55 | disposition home or self-care (01) ==
PROVIDERS: Emergency Provider Emergency Medicine; PCP Nurse Practitioner Family
DX: K04.7 Periapical abscess without sinus (principal)
CPT/HCPCS: 99283

== ENCOUNTER 2021-03-13 10:13 | Emergency (ER) | payer MEDICAID, SELFPAY ==
[2021-03-13] VITALS (14 sets, daily range): BP systolic 120–132; BP diastolic 60–72; PULSE 42–82; RESP 9–23; TEMP 37.2; O2SAT 96–98
[2021-03-13 11:10] LABS: Abs Immature Grans 0.02 10^3/uL (0.0-0.06); Absolute Basophil Count 0.03 10^3/uL (0.0-0.2); Absolute Eosinophil Count 0.02 10^3/uL (0.0-0.7); Absolute Lymphocyte Count 1.47 10^3/uL (1.2-3.4); Absolute Monocyte Count 0.35 10^3/uL (0.1-0.8); Absolute Neutrophil Count 5.89 10^3/uL (1.2-6.7); Basophils % 0.4; Eosinophils % 0.3; HCT 43.5 % (40.0-50.0); HGB 14.5 g/dL (13.5-17.5); Immature Grans % 0.3; Lymphocytes % 18.9; MCH 29.6 pg (27.0-33.0); MCHC 33.3 % (32.0-36.0); MCV 88.8 fL (80-95); MPV 9.3 fL (8.0-11.0); Monocytes % 4.5; Neutrophils % 75.6; Nucleated RBC 0 %; Platelet Count 227 10^3/uL (130-400); RDW-SD 42.7 fL; WBC 7.78 10^3/uL (4.4-10.8)
--- NOTE | 2021-03-13 11:16 | ED.GENADUL_ITS ---
Discharge Plan Disposition Patient Disposition: HOME Condition: Good Discharge Details Clinical Impression: Nausea & vomiting Primary Care Provider: Lili Cabrera ED Provider: Liset Cardenas Home Meds and New Rx's Prescriptions: New metoclopramide HCl [Reglan] 10 mg tablet 10 mg PO Q6H PRNQty: 14 RF: 0 Continued albuterol sulfate [ProAir HFA] 200 PUFF HFA aerosol inhaler 2 puff Inhalation PRN PRNRF: 0 methadone 10 MG/ML concentrate 65 mg PO DAILY RF: 0 acetaminophen [Acetaminophen Extra Strength] 500 mg Tablet 500 mg PO Q6H PRNRF: 0 ibuprofen 600 mg Tablet 600 mg PO TID PRNRF: 0 penicillin V potassium 500 mg tablet 500 mg PO TID 10 Days Qty: 30 RF: 0 Discharge Instructions Instructions: Acute Nausea and Vomiting (ED) Additional Instructions: Take Reglan as needed for nausea and vomiting Clear liquid diet only for the next 24 hours or until you are feeling symptomatically improved Rest Should you have worsening pain, fever, persistent uncontrolled vomiting, please return to the emergency room Gatorade may help hydrate you as well, Regular Gatorade half water, half Gatorade Recheck with your primary care physician in 24 to 48 hours You should isolate until your Covid test returns approximately 36 hours Stand Alone Forms: PENDING COVID-19 TESTING, Work Release Referrals: Lili Cabrera, JULIETTE [Primary Care Provider] - Medical Decision Making Patient is alert and oriented, he has appearance Diagnostic labs do not show acute change, his LFTs are elevated, consistent with prior hepatitis C diagnosis His abdomen is nontender at time of reevaluation and he is able to tolerate p.o. He reports that he feels significant improvement in symptoms No indication for CT imaging at this time Clear liquid diet recommended close outpatient follow-up recommended Reglan prescription for home as patient is on methadone and other antiemetics may prolong QTC Early return precautions discussed and patient expressed understanding No electrolyte abnormality Discharged home in stable condition with stable vitals, recheck by primary care physician in 24 hours recommended Medical Records Medical records reviewed: Yes I reviewed the patient's medical records. Lab Data Lab results reviewed: Yes I reviewed the patient's lab results. HPI General Mode of arrival: ambulatory . Date/Time Provider Initiated Documentation: 03/13/21 10:43 . Limitations to Documentation: no limitations . Information obtained by: patient . HPI Narrative: This 30-year-old male presents with nausea, vomiting, subjective fevers. He has been sick since Tuesday. He denies any urinary symptoms. He is cramping in his abdomen that is alleviated with vomiting. Has had numerous contacts that are ill but not with similar symptoms. Is currently taking penicillin for suspected dental abscess. Denies any stiff neck, tick bite, blood in vomitus. Has not used IV drugs for the past 6 years reportedly. Denies chest pain or shortness of breath. Feels lightheaded but denies dizziness. Denies any diarrhea. Denies known tick bites. Related Data Home Medications Medication Instructions Recorded Confirmed albuterol sulfate [ProAir HFA] 2 puff INHALATION PRN PRN 09/18/13 03/13/21 methadone 65 mg PO DAILY 02/06/18 03/13/21 acetaminophen [Acetaminophen Extra 500 mg PO Q6H PRN 03/05/21 03/13/21 Strength] ibuprofen 600 mg PO TID PRN 03/05/21 03/13/21 penicillin V potassium 500 mg PO TID 10 Days #30 tab 03/05/21 03/13/21 metoclopramide HCl [Reglan] 10 mg PO Q6H PRN #14 tab 03/13/21 Previous Rx's Medication Instructions Recorded penicillin V potassium 500 mg PO TID 10 Days #30 tab 03/05/21 metoclopramide HCl [Reglan] 10 mg PO Q6H PRN #14 tab 03/13/21 Allergies Allergy/AdvReac Type Severity Reaction Status Date / Time No Known Allergies Allergy Verified 03/13/21 10:29 General Stated Complaint: Nausea/Vomit/Diar JAVIER: 3 Review of Systems All systems reviewed & are unremarkable except as noted in HPI and below PFSH Medical History (Updated 03/13/21 @ 13:15 by LORA Lyle) ADHD (attention deficit hyperactivity disorder) Generalized anxiety disorder Hepatitis C infection Major depressive disorder Substance use disorder Hx of IVDU, Methadone through [facility] Surgical History History of left inguinal hernia repair at [facility] S/P tonsillectomy Family History Mother , at 47 of lung cancer COPD (chronic obstructive pulmonary disease) Lung cancer Father Bladder cancer COPD (chronic obstructive pulmonary disease) Brother No problems noted. Brother Substance abuse Asthma Brother Substance abuse Asthma Sister No problems noted. Sister No problems noted. Daughter No problems noted. Maternal Grandfather Asthma Maternal Grandmother Cancer Unknown type COPD (chronic obstructive pulmonary disease) Paternal Grandfather Stroke Heart disease Myocardial infarction Paternal Grandmother Stroke Social History Smoking/Tobacco Use Status: Current every day Tobacco Type: cigarettes Smoking risk assessment performed?: Yes Alcohol Intake: former Drug use: Daily Substance use type: former substance user and marijuana Details: Goes to the Methadone clinic 1 x week Do you feel safe at home: Yes Do you feel safe in your relationship?: Yes Exam Const General: healthy appearing and no acute distress HENMT Other: Moist mucous membranes Eyes Pupils: PERRL Neck Other: No meningismus Resp Effort & Inspection: normal respiratory effort Auscultation: clear to auscultation bilaterally Cardio Rate: regular rate Rhythm: regular rhythm GI Other: Mild diffuse tenderness, no rebound or guarding No CVA tenderness Skin General skin exam: no rashes or lesions noted Neuro General: patient alert and patient oriented x3 Cranial Nerves: CN's II-XI intact bilaterally Extrem Other: No rashes or lesions Course Vital Signs Vital signs: Vital Signs Temperature 37.2 C 03/13/21 10:20 Pulse 82 03/13/21 10:20 Respiratory Rate 16 03/13/21 10:20 Blood Pressure 132/72 03/13/21 10:20 Pulse Oximetry 98 03/13/21 10:20 Temperature 37.2 C 03/13/21 10:20 Temperature Source Skin 03/13/21 10:20 Pulse 82 03/13/21 10:20 Respiratory Rate 16 03/13/21 10:20 Blood Pressure 132/72 03/13/21 10:20 Blood Pressure Position Sitting 03/13/21 10:20 Pulse Oximetry 98 03/13/21 10:20 Oxygen Delivery Method Room Air 03/13/21 10:20 Oxygen Flow Rate 0 03/13/21 10:20 Pain Level 5 03/13/21 10:20 Comment 03/13/21 10:20 Lab/Test Results Lab/Test Results: Laboratory Tests Range/Units 03/13/21 03/13/21 03/13/21 10:50 10:55 13:55 WBC (4.4-10.8) 10^3/uL 7.78 RBC (4.36-5.78) 10^6/uL 4.90 Hgb (13.5-17.5) g/dL 14.5 Hct (40.0-50.0) % 43.5 MCV (80-95) fL 88.8 MCH (27.0-33.0) pg 29.6 MCHC (32.0-36.0) % 33.3 RDW (11.8-14.1) % 13.0 Plt Count (130-400) 10^3/uL 227 MPV (8.0-11.0) fL 9.3 Immature Gran % 0.3 Neutrophils % 75.6 Lymphocytes % 18.9 Monocytes % 4.5 Eosinophils % 0.3 Basophils % 0.4 Nucleated RBC % % 0 Absolute Neutrophils (1.2-6.7) 10^3/uL 5.89 Absolute Lymphocytes (1.2-3.4) 10^3/uL 1.47 Absolute Monocytes (0.1-0.8) 10^3/uL 0.35 Absolute Eosinophils (0.0-0.7) 10^3/uL 0.02 Absolute Basophils (0.0-0.2) 10^3/uL 0.03 Troponin I Cancelled Cancelled
[2021-03-13] MEDS: Metoclopramide 10 MG/2 ML VIAL IVP (11:19)
[2021-03-13] MEDS: Lactated Ringers 1,000 ML 2000 ML IV (11:19)
[2021-03-13] MEDS: diphenhydrAMINE 50 MG/ML VIAL 25 MG IVP (11:19)
[2021-03-13 11:20] LABS: Lipase 35 U/L (73-393); Magnesium 1.9 mg/dL (1.8-2.4)
[2021-03-13] MEDS: Ketorolac 15 MG/ML VIAL IVP (11:20)
[2021-03-13 11:23] LABS: ALT 121 U/L (16-63); AST 73 U/L (15-37); Alkaline Phosphatase 114 U/L (46-116); Anion Gap 7.1 mmol/L (3-11); BUN 11 mg/dL (7-18); Bilirubin, Total 0.3 mg/dL (0.2-1.0); CO2 28.9 mmol/L (21.0-32.0); CREATININE 0.8 mg/dL (0.70-1.30); Calcium 8.8 mg/dL (8.5-10.1); Chloride 104 mmol/L (98-107); Glucose 95 mg/dL (74-106); Potassium 4.1 mmol/L (3.5-5.1); Sodium 140 mmol/L (136-145); Total Protein 7.8 g/dL (6.4-8.2)
--- NOTE | 2021-03-13 12:15 | RT.EKG_ITS ---
APPROVED REPORT Exam: Resting ECG Reason for Exam: dizziness, kirk Patient Location: E HR:44 bpm ECG Measurements Heart Rate 44 AXIS MD 109 P 53 QRSd 97 QRS -24 QT 505 T 11 QTc 434 Conclusion Sinus bradycardia...rate< 60. Sinus kirk. No STEMI. I have reviewed and interpreted ECG and agree with software generated interpretation.
[2021-03-14 13:24] LABS: COVID-19 RT-PCR UVMMC Result Negative (Negative)
== END 2021-03-13 13:35 | disposition home or self-care (01) ==
PROVIDERS: Emergency Provider Physician Assistant; PCP Nurse Practitioner Family
DX: R11.2 Nausea with vomiting, unspecified (principal); R50.9 Fever, unspecified; Z20.822 Contact with and (suspected) exposure to COVID-19; Z03.818 Encounter for observation for suspected exposure to other biological agents ruled out
CPT/HCPCS: 36415; 80053; 83690; 93005; 96374; 96375; 99284; U0003; 83735; 84484; 85025; 93010; 99285; J1200; J1885; J2765

== ENCOUNTER 2021-04-07 14:13 | Emergency (ER) | payer MEDICAID, SELFPAY ==
[2021-04-07 14:15] VITALS: BP 161/105; PULSE 64; RESP 16; TEMP 37.2; O2SAT 97
--- NOTE | 2021-04-07 14:37 | ED.GENADUL_ITS ---
Discharge Plan Disposition Patient Disposition: HOME Condition: Improving Discharge Details Clinical Impression: Odontalgia Primary Care Provider: Lili Cabrera ED Provider: Toi Elkins Home Meds and New Rx's Prescriptions: New penicillin V potassium 500 mg tablet 500 mg PO TID 10 Days Qty: 30 RF: 0 chlorhexidine gluconate 0.12 % mouthwash 15 ml mucous membrane BID 10 Days Qty: 473 RF: 0 Continued albuterol sulfate [ProAir HFA] 200 PUFF HFA aerosol inhaler 2 puff Inhalation PRN PRNRF: 0 methadone 10 MG/ML concentrate 65 mg PO DAILY RF: 0 acetaminophen [Acetaminophen Extra Strength] 500 mg Tablet 500 mg PO Q6H PRNRF: 0 ibuprofen 600 mg Tablet 600 mg PO TID PRNRF: 0 Discharge Instructions Instructions: Toothache (ED) Additional Instructions: Follow-up with your oral surgeon as planned. Take penicillin as prescribed until finished. May resume chlorhexidine rinses 2 times daily. Return for any acute concerns. Medical Decision Making 30-year-old male with poor dentition, numerous broken teeth and dental caries, presents with left maxillary dental pain over days time, similar to previous. He has plans for dental extraction with oral surgeon at [facility]. He does appear to have recurrent dental infection and we will place him on a course of penicillin. Patient also has had chlorhexidine rinses in the past and will prescribe that as well. He is stable and appropriate for outpatient management. HPI General Mode of arrival: ambulatory . Date/Time Provider Initiated Documentation: 04/07/21 14:13 . Limitations to Documentation: no limitations . Information obtained by: patient . History of Present Illness 30 year old M presents to the emergency department with the chief complaint of L tooth pain, described as moderate and similar to prior episodes, Quality is described as dull and constant, and is localized to the face and left. Patient reports no radiation. Patient started experiencing this day(s) and it has been constant. No relieving factors improve symptom(s), No exacerbating factors reported . Patient did receive the following treatments prior to arrival, NSAID Related Data Home Medications Medication Instructions Recorded Confirmed albuterol sulfate [ProAir HFA] 2 puff INHALATION PRN PRN 09/18/13 04/07/21 methadone 65 mg PO DAILY 02/06/18 04/07/21 acetaminophen [Acetaminophen Extra 500 mg PO Q6H PRN 07/22/21 08/24/21 Strength] ibuprofen 600 mg PO TID PRN 03/05/21 04/07/21 chlorhexidine gluconate 15 ml MUCOUS MEMBRANE BID 10 Days 04/07/21 #473 ml penicillin V potassium 500 mg PO TID 10 Days #30 tab 04/07/21 Previous Rx's Medication Instructions Recorded chlorhexidine gluconate 15 ml MUCOUS MEMBRANE BID 10 Days 04/07/21 #473 ml penicillin V potassium 500 mg PO TID 10 Days #30 tab 04/07/21 Allergies Allergy/AdvReac Type Severity Reaction Status Date / Time No Known Allergies Allergy Verified 04/07/21 14:18 General Stated Complaint: DentalOral JAVIER: 4 Review of Systems Narrative: 6 sys reviewed and otherwise neg [facility] Medical History (Updated 04/07/21 @ 14:42 by Toi Elkins MD) ADHD (attention deficit hyperactivity disorder) Generalized anxiety disorder Hepatitis C infection Major depressive disorder Substance use disorder Hx of IVDU, Methadone through [facility] Surgical History History of left inguinal hernia repair at [facility] S/P tonsillectomy Family History Mother , at 47 of lung cancer COPD (chronic obstructive pulmonary disease) Lung cancer Father Bladder cancer COPD (chronic obstructive pulmonary disease) Brother No problems noted. Brother Substance abuse Asthma Brother Substance abuse Asthma Sister No problems noted. Sister No problems noted. Daughter No problems noted. Maternal Grandfather Asthma Maternal Grandmother Cancer Unknown type COPD (chronic obstructive pulmonary disease) Paternal Grandfather Stroke Heart disease Myocardial infarction Paternal Grandmother Stroke Social History Smoking/Tobacco Use Status: Current every day Tobacco Type: cigarettes Smoking risk assessment performed?: Yes Alcohol Intake: former Drug use: Daily Substance use type: former substance user and marijuana Details: Goes to the Methadone clinic 1 x week Do you feel safe at home: Yes Do you feel safe in your relationship?: Yes Exam Narrative Exam Narrative: GEN: awake, alert, oriented 3. Pleasant, well groomed, interactive. HEAD: Normocephalic, atraumatic ENT: Mucous membranes moist, oropharynx numerous dental caries, broken teeth, mild tenderness L maxillary premolar, no swelling or fluctuance, External ear exam unremarkable EYES: PERRL, EOMI NECK: Full ROM, no GINI, no menigismus CHEST/RESP: Nontender, clear to auscultation bilateral, no wheeze/rhonchi/rales EXT: Full ROM, no edema, no rash Neuro: Grossly normal neurologic exam, conversant, interactive. Psych: Speech fluent, thoughts congruent, affect normal Course Vital Signs Vital signs: Vital Signs Temperature 37.2 C 04/07/21 14:15 Pulse 64 04/07/21 14:15 Respiratory Rate 16 04/07/21 14:15 Blood Pressure 161/105 H 04/07/21 14:15 Pulse Oximetry 97 04/07/21 14:15 Temperature 37.2 C 04/07/21 14:15 Temperature Source Skin 04/07/21 14:15 Pulse 64 04/07/21 14:15 Respiratory Rate 16 04/07/21 14:15 Respiratory Effort 04/07/21 14:19 Blood Pressure 161/105 H 04/07/21 14:15 Blood Pressure Position Sitting 04/07/21 14:15 Pulse Oximetry 97 04/07/21 14:15 Oxygen Delivery Method Room Air 04/07/21 14:15 Oxygen Flow Rate 0 04/07/21 14:15 Pain Level 8 04/07/21 14:15
[2021-04-07 14:45] VITALS: BP 161/105; PULSE 64; RESP 16; TEMP 37.2; O2SAT 97
== END 2021-04-07 14:55 | disposition home or self-care (01) ==
PROVIDERS: Emergency Provider Emergency Medicine; PCP Nurse Practitioner Family
DX: R68.84 Jaw pain (principal); K08.89 Other specified disorders of teeth and supporting structures
CPT/HCPCS: 99283

== ENCOUNTER 2021-04-13 23:30 | Emergency (ER) | payer MEDICAID, SELFPAY ==
[2021-04-13 23:34] VITALS: BP 168/101; PULSE 50; RESP 18; TEMP 35.7; O2SAT 98
--- NOTE | 2021-04-13 23:51 | ED.GENADUL_ITS ---
Discharge Plan Disposition Patient Disposition: HOME Condition: Stable Discharge Details Clinical Impression: Dental infection Primary Care Provider: Lili Cabrera ED Provider: Kishan Corea Home Meds and New Rx's Prescriptions: New amoxicillin-pot clavulanate [Augmentin] 875-125 mg tablet 1 tab PO BID Qty: 14 RF: 0 prednisone 20 mg tablet 60 mg PO DAILY 4 Days Qty: 12 RF: 0 Continued albuterol sulfate [ProAir HFA] 200 PUFF HFA aerosol inhaler 2 puff Inhalation PRN PRNRF: 0 methadone 10 MG/ML concentrate 65 mg PO DAILY RF: 0 acetaminophen [Acetaminophen Extra Strength] 500 mg Tablet 500 mg PO Q6H PRNRF: 0 ibuprofen 600 mg Tablet 600 mg PO TID PRNRF: 0 chlorhexidine gluconate 0.12 % mouthwash 15 ml mucous membrane BID 10 Days Qty: 473 RF: 0 Discontinued penicillin V potassium 500 mg tablet 500 mg PO TID 10 Days Qty: 30 RF: 0 Discharge Instructions Additional Instructions: follow up with your dental specialist as soon as possible if you have inability to swallow liquids, fevers or difficulty breathing or feel more ill return to the emergency department Medical Decision Making 30 yo male with hx of adhd, who is on penicillin for right lower dental infection and has not been able to see a dentist yet, comes in with conintued pain and mild swelling along the jaw. He denies fevers, difficulty swallowing and is drinking out of a water bottle when i enter the room without difficulty. He is speaking in full sentences, no drooling or stridor. HE has nearly all eroded teeth down to the gum line and localizes current pain to the right lower posterior molar, no visible drainable abscess, mild swelling over the cheek in this area. No submandibular swelling, no pain over the hyoid, no restricted neck movements, midline uvula. Suspect continued dental infection, no findings to suggest ludwigs, retropharyngeal abscess, epiglotitis or other serious pathology and do not feel labs or imaging indicated. Will switch him to augmentin and try prednisone, advised to f/u with dentist socrates and return precautions given Differential Diagnosis Differential Diagnosis: abscess, caries, dental infection Medical Records Medical records reviewed: Yes I reviewed the patient's medical records. HPI General Mode of arrival: ambulatory . Date/Time Provider Initiated Documentation: 04/13/21 23:45 . Limitations to Documentation: no limitations . Information obtained by: patient . History of Present Illness 30 year old M presents to the emergency department with the chief complaint of right lower jaw pain, described as moderate, and is localized to the mouth. Patient reports no radiation. Patient started experiencing this week(s) (1) and it has been constant. No relieving factors improve symptom(s), No exacerbating factors reported . Patient notes no other symptoms.. Patient did receive the following treatments prior to arrival, other (penicillin) Related Data Home Medications Medication Instructions Recorded Confirmed albuterol sulfate [ProAir HFA] 2 puff INHALATION PRN PRN 09/18/13 04/13/21 methadone 65 mg PO DAILY 02/06/18 04/13/21 acetaminophen [Acetaminophen Extra 500 mg PO Q6H PRN 03/05/21 04/13/21 Strength] ibuprofen 600 mg PO TID PRN 03/05/21 04/13/21 chlorhexidine gluconate 15 ml MUCOUS MEMBRANE BID 10 Days 04/07/21 04/13/21 #473 ml amoxicillin-pot clavulanate 1 tab PO BID #14 tab 04/13/21 [Augmentin] prednisone 60 mg PO DAILY 4 Days #12 tab 04/13/21 Previous Rx's Medication Instructions Recorded chlorhexidine gluconate 15 ml MUCOUS MEMBRANE BID 10 Days 04/07/21 #473 ml amoxicillin-pot clavulanate 1 tab PO BID #14 tab 04/13/21 [Augmentin] prednisone 60 mg PO DAILY 4 Days #12 tab 04/13/21 Allergies Allergy/AdvReac Type Severity Reaction Status Date / Time No Known Allergies Allergy Verified 04/07/21 14:18 General Stated Complaint: DentalOral JAVIER: 4 Review of Systems All systems reviewed & are unremarkable except as noted in HPI and below Constitutional Constitutional: Denies chills, Denies fever(s) and Denies weakness Cardiovascular Cardiovascular: Denies chest pain and Denies dyspnea Respiratory Respiratory: Denies cough and Denies dyspnea Gastrointestinal Gastrointestinal: Denies abdominal pain, Denies nausea and Denies vomiting Musculoskeletal Musculoskeletal: Denies joint swelling Integumentary/Breasts Skin/Breast: Denies rash Neurologic Neurologic: Denies weakness [facility] Medical History (Updated 04/13/21 @ 23:56 by Kishan Corea MD) ADHD (attention deficit hyperactivity disorder) Generalized anxiety disorder Hepatitis C infection Major depressive disorder Substance use disorder Hx of IVDU, Methadone through [facility] Surgical History History of left inguinal hernia repair at [facility] S/P tonsillectomy Family History Mother , at 47 of lung cancer COPD (chronic obstructive pulmonary disease) Lung cancer Father Bladder cancer COPD (chronic obstructive pulmonary disease) Brother No problems noted. Brother Substance abuse Asthma Brother Substance abuse Asthma Sister No problems noted. Sister No problems noted. Daughter No problems noted. Maternal Grandfather Asthma Maternal Grandmother Cancer Unknown type COPD (chronic obstructive pulmonary disease) Paternal Grandfather Stroke Heart disease Myocardial infarction Paternal Grandmother Stroke Social History Smoking/Tobacco Use Status: Current every day Tobacco Type: cigarettes Smoking risk assessment performed?: Yes Alcohol Intake: former Drug use: Daily Substance use type: former substance user and marijuana Details: Goes to the Methadone clinic 1 x week Do you feel safe at home: Yes Do you feel safe in your relationship?: Yes Exam Const General: no acute distress Orientation: alert HENMT Head: normal to inspection Ears: external ears normal General nose exam: external nose normal Mouth: moist mucous membranes Eyes General: appearance normal, both eyes and all related structures Neck Neck: normal visual inspection Resp Effort & Inspection: normal respiratory effort and able to speak in complete sentences Cardio Rate: regular rate Skin General skin exam: no rashes or lesions noted Neuro General: patient alert and patient oriented x3 Extrem General: normal to inspection Psych Mental Status: mental status grossly normal Course Vital Signs Vital signs: Vital Signs Temperature 35.7 C L 04/13/21 23:34 Pulse 50 L 04/13/21 23:34 Respiratory Rate 18 04/13/21 23:34 Blood Pressure 168/101 H 04/13/21 23:34 Pulse Oximetry 98 04/13/21 23:34 Temperature 35.7 C L 04/13/21 23:34 Temperature Source Tympanic 04/13/21 23:34 Pulse 50 L 04/13/21 23:34 Respiratory Rate 18 04/13/21 23:34 Respiratory Effort Non-Labored 04/13/21 23:37 Blood Pressure 168/101 H 04/13/21 23:34 Blood Pressure Position Sitting 04/13/21 23:34 Pulse Oximetry 98 04/13/21 23:34 Oxygen Delivery Method Room Air 04/13/21 23:34 Oxygen Flow Rate 0 04/13/21 23:34 Pain Level 8 04/13/21 23:38
[2021-04-13] MEDS: Amoxicillin 875/Clav. 125 TAB PO (23:59)
[2021-04-13] MEDS: Ketorolac 15 MG/ML VIAL IM (23:59)
[2021-04-13] MEDS: predniSONE 20 MG TAB 60 MG PO (23:59)
== END 2021-04-14 | disposition home or self-care (01) ==
PROVIDERS: Emergency Provider Emergency Medicine; PCP Nurse Practitioner Family
DX: K04.7 Periapical abscess without sinus (principal)
CPT/HCPCS: 96372; 99284; 99283; J1885; J7512

== ENCOUNTER 2021-06-03 17:35 | Emergency (ER) | payer MEDICAID, SELFPAY ==
[2021-06-03 17:39] VITALS: BP 161/88; PULSE 78; RESP 16; TEMP 37.3; O2SAT 99
--- NOTE | 2021-06-03 18:52 | ED.GENADUL_ITS ---
Discharge Plan Disposition Patient Disposition: HOME Condition: Stable Discharge Details Clinical Impression: Pain, dental, Status post tooth extraction Primary Care Provider: Lili Cabrera ED Provider: Tereza Pink Home Meds and New Rx's Prescriptions: New amoxicillin-pot clavulanate [Augmentin] 875-125 mg tablet 1 tab PO BID 7 Days Qty: 14 RF: 0 Continued albuterol sulfate [ProAir HFA] 200 PUFF HFA aerosol inhaler 2 puff Inhalation PRN PRNRF: 0 methadone 10 MG/ML concentrate 65 mg PO DAILY RF: 0 acetaminophen [Acetaminophen Extra Strength] 500 mg Tablet 500 mg PO Q6H PRNRF: 0 ibuprofen 600 mg Tablet 600 mg PO TID PRNRF: 0 Discharge Instructions Instructions: Toothache (ED) Additional Instructions: Drink plenty of fluids and get plenty of rest. Alternate tylenol and motrin as needed and directed for pain. A prescription for antibiotics has been sent electronically to your pharmacy. Take this as directed until finished. Continue with salt water gargles and your chlorhexidine wash as directed. Follow-up with your oral surgeon at [facility] for reevaluation. Return immediately to the emergency department if you develop any worsening or new concerning symptoms such as fever, increased pain or swelling. 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 Pt appears comfortable and nontoxic. BP hypertensive, temp 99.1. Pt is edentulo us and has mucosa appearing in stages of healing c/w recent extraction, some absorbable sutures present. Left upper jaw notes increased edema, mild erythema and tenderness. No abscesses noted. No drooling, trismus, submandibular swelling, lymphadenopathy. Will treat for potential developing infection. As he was treated with amoxicillin last month, will treat with augmentin. He was given one dose here and doses for home and prescription sent electronically to his pharmacy. Advised to call his dentist tomorrow for follow up. Usual and customary return precautions given prior to discharge. Medical Records Medical records reviewed: Yes I reviewed the patient's medical records. HPI General Mode of arrival: ambulatory . Date/Time Provider Initiated Documentation: 06/03/21 17:43 . Limitations to Documentation: no limitations . Information obtained by: patient . 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 Pt states he was taking percocet since his extraction for pain but ran out of those and is now alterating tylenol and motrin. Pt states he feels that his upper left jaw is more painful and swollen. He denies any known fever or drainage. He states he has not been on any antibiotics since a few weeks before his extraction and states he was on amoxicillin and finished it completely. Related Data Home Medications Medication Instructions Recorded Confirmed albuterol sulfate [ProAir HFA] 2 puff INHALATION PRN PRN 09/18/13 06/03/21 methadone 65 mg PO DAILY 02/06/18 06/03/21 acetaminophen [Acetaminophen Extra 500 mg PO Q6H PRN 03/05/21 06/03/21 Strength] ibuprofen 600 mg PO TID PRN 03/05/21 06/03/21 amoxicillin-pot clavulanate 1 tab PO BID 7 Days #14 tab 06/03/21 [Augmentin] Previous Rx's Medication Instructions Recorded amoxicillin-pot clavulanate 1 tab PO BID 7 Days #14 tab 06/03/21 [Augmentin] Allergies Allergy/AdvReac Type Severity Reaction Status Date / Time No Known Allergies Allergy Verified 06/03/21 19:27 General Stated Complaint: DentalOral JAVIER: 5 Review of Systems All systems reviewed & are unremarkable except as noted in HPI and below Constitutional Constitutional: Reports as per HPI, Denies chills and Denies fever(s) Eyes Eyes: Denies blurry vision ENT Ears, Nose, Mouth, and Throat: Reports dental pain, Denies dizziness, Denies sore throat and Denies throat swelling Cardiovascular Cardiovascular: Denies chest pain and Denies dyspnea Respiratory Respiratory: Denies cough and Denies dyspnea Gastrointestinal Gastrointestinal: Denies abdominal pain, Denies diarrhea and Denies vomiting Genitourinary Genitourinary: Denies hematuria and Denies dysuria Musculoskeletal Musculoskeletal: Denies back pain and Denies numbness Integumentary/Breasts Skin/Breast: Denies lesions and Denies rash Neurologic Neurologic: Denies dizziness, Denies localized weakness and Denies numbness Allergic/Immunologic Allergic/Immunologic: Denies throat swelling [facility] Medical History (Updated 06/03/21 @ 19:40 by Tereza Pink DO) ADHD (attention deficit hyperactivity disorder) Generalized anxiety disorder Hepatitis C infection Major depressive disorder Substance use disorder Hx of IVDU, Methadone through [facility] Surgical History (Updated 06/03/21 @ 19:40 by Tereza Pink DO) History of left inguinal hernia repair at [facility] S/P tonsillectomy Family History Mother , at 47 of lung cancer COPD (chronic obstructive pulmonary disease) Lung cancer Father Bladder cancer COPD (chronic obstructive pulmonary disease) Brother No problems noted. Brother Substance abuse Asthma Brother Substance abuse Asthma Sister No problems noted. Sister No problems noted. Daughter No problems noted. Maternal Grandfather Asthma Maternal Grandmother Cancer Unknown type COPD (chronic obstructive pulmonary disease) Paternal Grandfather Stroke Heart disease Myocardial infarction Paternal Grandmother Stroke Social History Smoking/Tobacco Use Status: Current every day Tobacco Type: cigarettes Smoking risk assessment performed?: Yes Alcohol Intake: former Drug use: Daily Substance use type: former substance user and marijuana Details: Goes to the Methadone clinic 1 x week Do you feel safe at home: Yes Do you feel safe in your relationship?: Yes Exam Const General: cooperative, healthy appearing and no acute distress [facility] Head: normal to inspection Ears: hearing grossly normal bilaterally, external ears normal and TM's normal bilaterally General nose exam: external nose normal Face and sinus: normal facial exam Mouth: oral mucosae normal, no drooling and no trismus Teeth and gingiva: edentulous (some absorbable sutures present, mucosa in stages of healing s/p extraction) and other (L upper jaw with increased edema,mild erythema, tenderness. No abscess) Throat: posterior oropharynx normal, uvula midline and no peritonsillar masses Eyes General: appearance normal, both eyes and all related structures Neck Neck: normal visual inspection, full ROM, no lymphadenopathy, no meningeal signs, trachea midline, supple, no anterior neck swelling and No submandibular swelling Resp Effort & Inspection: normal respiratory effort and able to speak in complete sentences Cardio Rate: regular rate Skin General skin exam: no rashes or lesions noted Neuro General: patient alert, patient awake and patient oriented x3 Motor: muscle tone normal throughout Extrem General: normal to inspection and full ROM Psych Appearance: grossly normal Affect: normal affect Course Vital Signs Vital signs: Vital Signs Temperature 99.1 F 06/03/21 17:39 Pulse 78 06/03/21 17:39 Respiratory Rate 16 06/03/21 17:39 Blood Pressure 161/88 H 06/03/21 17:39 Pulse Oximetry 99 06/03/21 17:39 Temperature 99.1 F 06/03/21 17:39 Temperature Source Temporal Artery Scan 06/03/21 17:39 Pulse 78 06/03/21 17:39 Respiratory Rate 16 06/03/21 17:39 Blood Pressure 161/88 H 06/03/21 17:39 Blood Pressure Position Sitting 06/03/21 17:39 Pulse Oximetry 99 06/03/21 17:39 Oxygen Delivery Method Room Air 06/03/21 17:39 Oxygen Flow Rate 0 06/03/21 17:39 Pain Level 7 06/03/21 17:39 Comment 06/03/21 17:39
[2021-06-03] MEDS: Amoxicillin 875/Clav. 125 TAB PO (19:59)
[2021-06-03] MEDS: Amox. 875/Clav. 125, 2 TABS/BTL 1 TAB PO (19:59)
== END 2021-06-03 20:01 | disposition home or self-care (01) ==
PROVIDERS: Emergency Provider Physician Assistant; PCP Nurse Practitioner Family
DX: K13.79 Other lesions of oral mucosa (principal); Z98.818 Other dental procedure status
CPT/HCPCS: 99283

== ENCOUNTER 2021-09-08 09:33 | Emergency (ER) | payer MEDICAID, SELFPAY ==
[2021-09-08 09:44] VITALS: BP 156/75; PULSE 58; RESP 16; TEMP 37.1; O2SAT 97
--- NOTE | 2021-09-08 09:45 | DI.RAD_ITS ---
Exam(s) XR PORTABLE CHEST AP EXAM: XR PORTABLE CHEST AP CLINICAL HISTORY: cough TECHNIQUE: 2D digital imaging was performed of the chest. Two images were obtained. AP views were obtained. COMPARISON: CR XR ABD FLAT UPRIGHT PA CHEST from 08/20/2020 FINDINGS: MEDIASTINUM: Normal. HEART: Normal. PULMONARY VASCULATURE: Normal. LUNGS: Clear. PLEURAL SPACE: No pleural effusion or pneumothorax. BONE:Within normal limits for the patient's age. OTHER FINDINGS:Normal. IMPRESSION: No acute pulmonary findings. DATA REPOSITORY: RADIATION DOSE DELIVERED:
--- NOTE | 2021-09-08 09:58 | ED.GENADUL_ITS ---
Discharge Plan Disposition Patient Disposition: HOME Condition: Improving Discharge Details Clinical Impression: Bronchitis Primary Care Provider: Lili Cabrera ED Provider: Toi Elknis Home Meds and New Rx's Prescriptions: New doxycycline hyclate 100 mg capsule 100 mg PO BID 10 Days Qty: 20 RF: 0 guaifenesin [Mucinex] 600 mg tablet extended release 12hr 600 mg PO Q12H PRN (Reason: congestion) Qty: 10 RF: 0 Continued albuterol sulfate [ProAir HFA] 200 PUFF HFA aerosol inhaler 2 puff Inhalation PRN PRNRF: 0 methadone 10 MG/ML concentrate 65 mg PO DAILY RF: 0 acetaminophen [Acetaminophen Extra Strength] 500 mg Tablet 500 mg PO Q6H PRNRF: 0 ibuprofen 600 mg Tablet 600 mg PO TID PRNRF: 0 Discharge Instructions Instructions: Acute Bronchitis (ED) Additional Instructions: You will be called the results of your COVID-19 test. Continue your efforts to limit cigarettes to 1/2/day. Home to rest. Small, frequent sips of fluids to maintain hydration. Return to the emergency department for any acute concerns. Stand Alone Forms: PENDING COVID-19 TESTING Medical Decision Making Pleasant and delightful 30-year-old male presents with 2-1/2 days of cough, congestion, reduction of green sputum. He is not immunized against Covid. He is not had any wheezing and is not hypoxic. His exam is reassuring. Differential diagnosis includes bronchitis, pneumonia, COVID-19 pneumonitis. Patient underwent outpatient COVID-19 test, screening chest x-ray. Chest x-ray without focal consolidation. We will treat him with a course of antibiotics for bronchitis given his smoking history. We will call him with results of Covid testing. HPI General Mode of arrival: ambulatory . Date/Time Provider Initiated Documentation: 09/08/21 09:33 . Limitations to Documentation: no limitations . Information obtained by: patient . History of Present Illness 30 year old M presents to the emergency department with the chief complaint of Cough and congestion, described as moderate, and is localized to the chest. Patient reports no radiation. Patient started experiencing this day(s) and it has been intermittent. No relieving factors improve symptom(s), No exacerbating factors reported . Patient notes cough; denies fever/chills and shortness of breath. Patient did receive the following treatments prior to arrival, none Related Data Home Medications Medication Instructions Recorded Confirmed albuterol sulfate [ProAir HFA] 2 puff INHALATION PRN PRN 09/18/13 09/08/21 methadone 65 mg PO DAILY 02/06/18 09/08/21 acetaminophen [Acetaminophen Extra 500 mg PO Q6H PRN 03/05/21 09/08/21 Strength] ibuprofen 600 mg PO TID PRN 03/05/21 09/08/21 doxycycline hyclate 100 mg PO BID 10 Days #20 cap 09/08/21 guaifenesin [Mucinex] 600 mg PO Q12H PRN #10 tab 09/08/21 Previous Rx's Medication Instructions Recorded doxycycline hyclate 100 mg PO BID 10 Days #20 cap 09/08/21 guaifenesin [Mucinex] 600 mg PO Q12H PRN #10 tab 09/08/21 Allergies Allergy/AdvReac Type Severity Reaction Status Date / Time No Known Allergies Allergy Verified 09/08/21 09:51 General Stated Complaint: RespSymp JAVIER: 4 Review of Systems Narrative: Has cut down cigarette use to 1/2 pack. No fever. Sick contacts with those who have chest cold. No chest pain or difficulty breathing. PFSH All Active Problems (Updated 09/08/21 @ 10:55 by Toi Elkins MD) Pain, dental (Acute) Status post tooth extraction (Acute) Bronchitis (Acute) Substance use disorder (Acute) Hx of IVDU, Methadone through [facility] Pain, dental (Acute) Dental infection (Acute) Nausea & vomiting (Acute) Odontalgia (Acute) Dental infection (Acute) Hepatitis C infection (Chronic) Major depressive disorder (Chronic) Generalized anxiety disorder (Chronic) ADHD (attention deficit hyperactivity disorder) (Chronic) Surgical History (Updated 06/03/21 @ 19:40 by Tereza Pink DO) History of left inguinal hernia repair at [facility] S/P tonsillectomy Family History Mother , at 47 of lung cancer COPD (chronic obstructive pulmonary disease) Lung cancer Father Bladder cancer COPD (chronic obstructive pulmonary disease) Brother No problems noted. Brother Substance abuse Asthma Brother Substance abuse Asthma Sister No problems noted. Sister No problems noted. Daughter No problems noted. Maternal Grandfather Asthma Maternal Grandmother Cancer Unknown type COPD (chronic obstructive pulmonary disease) Paternal Grandfather Stroke Heart disease Myocardial infarction Paternal Grandmother Stroke Social History Smoking/Tobacco Use Status: Current every day Tobacco Type: cigarettes Smoking risk assessment performed?: Yes Alcohol Intake: former Drug use: Daily Substance use type: former substance user and marijuana Details: Goes to the Methadone clinic 1 x week Do you feel safe at home: Yes Do you feel safe in your relationship?: Yes Exam Narrative Exam Narrative: GEN: awake, alert, oriented 3. Pleasant, well groomed, interactive. HEAD: Normocephalic, atraumatic ENT: Mucous membranes moist, oropharynx edentulous but otherwise unremarkable, External ear exam unremarkable EYES: PERRL, EOMI NECK: Full ROM, no GINI, no menigismus CHEST/RESP: Nontender, clear to auscultation bilateral, no wheeze/rhonchi/rales CARDIOVASCULAR: RRR, no murmur, rub gómez. 2+ Rad pulse bilateral ABDOMEN: Soft, nontender, no mass. +Bowel sounds EXT: Full ROM, no edema, no rash Neuro: Grossly normal neurologic exam, conversant, interactive. Psych: Speech fluent, thoughts congruent, affect normal Course Vital Signs Vital signs: Vital Signs Temperature 37.1 C 09/08/21 09:44 Pulse 58 L 09/08/21 09:44 Respiratory Rate 16 09/08/21 09:44 Blood Pressure 156/75 H 09/08/21 09:44 Pulse Oximetry 97 09/08/21 09:44 Temperature 37.1 C 09/08/21 09:44 Temperature Source Oral 09/08/21 09:44 Pulse 58 L 09/08/21 09:44 Respiratory Rate 16 09/08/21 09:44 Respiratory Effort Non-Labored 09/08/21 09:49 Blood Pressure 156/75 H 09/08/21 09:44 Blood Pressure Position Sitting 09/08/21 09:44 Pulse Oximetry 97 09/08/21 09:44 Oxygen Delivery Method Room Air 09/08/21 09:44 Oxygen Flow Rate 0 09/08/21 09:44 Pain Level 3 09/08/21 09:44
[2021-09-08 11:08] VITALS: BP 158/98; PULSE 85; RESP 17; TEMP 37; O2SAT 98
[2021-09-09 10:56] LABS: COVID-19 RT-PCR UVMMC Result Negative (Negative)
--- NOTE | 2021-09-10 09:29 | NUR.NOTE ---
negative covid result left on pt's answering machineNursing Note:
== END 2021-09-08 11:12 | disposition home or self-care (01) ==
PROVIDERS: Emergency Provider Emergency Medicine; PCP Nurse Practitioner Family
DX: J20.9 Acute bronchitis, unspecified (principal); Z20.822 Contact with and (suspected) exposure to COVID-19; F17.210 Nicotine dependence, cigarettes, uncomplicated
CPT/HCPCS: 99283; U0003; 71045

== ENCOUNTER 2022-03-06 13:12 | Emergency (ER) | payer MEDICAID, SELFPAY ==
[2022-03-06] VITALS (32 sets, daily range): BP systolic 112–142; BP diastolic 58–80; PULSE 39–80; RESP 9–27; TEMP 36.4–37; O2SAT 96–100
--- NOTE | 2022-03-06 13:15 | RT.EKG_ITS ---
APPROVED REPORT Exam: Resting ECG Reason for Exam: chest pain Patient Location: E HR:45 bpm ECG Measurements Heart Rate 45 AXIS ND 125 P 14 QRSd 99 QRS 74 QT 483 T 43 QTc 419 Conclusion Sinus bradycardia...rate< 60 sinus bradycardia, normal axis, early repol
--- NOTE | 2022-03-06 13:30 | DI.RAD_ITS ---
Exam(s) XR CHEST 2V PA LATERAL EXAM: XR CHEST 2V PA LATERAL CLINICAL HISTORY: left chest pain. TECHNIQUE: 2D digital imaging was performed of the chest. Two images were obtained. PA and lateral views were obtained. COMPARISON: No exams were available for comparison FINDINGS: MEDIASTINUM: Normal. HEART: Normal. PULMONARY VASCULATURE: Normal. LUNGS: Clear. PLEURAL SPACE: No pleural effusion or pneumothorax. BONE:Within normal limits for the patient's age. OTHER FINDINGS:Normal. IMPRESSION: No acute pulmonary findings. DATA REPOSITORY: RADIATION DOSE DELIVERED:
[2022-03-06] MEDS: Normal Saline 1,000 ML 1000 ML IV ×2 (14:00→15:24)
[2022-03-06 14:14] LABS: Abs Immature Grans 0.01 10^3/uL (0.0-0.06); Absolute Basophil Count 0.02 10^3/uL (0.0-0.2); Absolute Eosinophil Count 0.07 10^3/uL (0.0-0.7); Absolute Lymphocyte Count 2.01 10^3/uL (1.2-3.4); Absolute Monocyte Count 0.46 10^3/uL (0.1-0.8); Absolute Neutrophil Count 3.86 10^3/uL (1.2-6.7); Basophils % 0.3; Eosinophils % 1.1; HCT 35.9 % (40.0-50.0); HGB 11.7 g/dL (13.5-17.5); Immature Grans % 0.2; Lymphocytes % 31.3; MCH 28.8 pg (27.0-33.0); MCHC 32.6 % (32.0-36.0); MCV 88 fL (80-95); MPV 9.5 fL (8.0-11.0); Monocytes % 7.2; Neutrophils % 59.9; Platelet Count 184 10^3/uL (130-400); RBC 4.06 10^6/uL (4.36-5.78); RDW 13.5 % (11.8-14.1); RDW-SD 43.8 fL; WBC 6.43 10^3/uL (4.4-10.8)
[2022-03-06 14:31] LABS: ALT 90 U/L (16-63); AST 63 U/L (15-37); Albumin 3.5 g/dL (3.4-5.0); Alkaline Phosphatase 86 U/L (46-116); Anion Gap 5.5 mmol/L (3-11); BUN 13 mg/dL (7-18); Bilirubin, Total 0.3 mg/dL (0.2-1.0); CO2 29.5 mmol/L (21.0-32.0); CREATININE 0.8 mg/dL (0.70-1.30); Calcium 8.5 mg/dL (8.5-10.1); Chloride 104 mmol/L (98-107); Glucose 149 mg/dL (74-106); Lipase 34 U/L (73-393); Magnesium 1.9 mg/dL (1.8-2.4); Potassium 3.8 mmol/L (3.5-5.1); Sodium 139 mmol/L (136-145); Total Protein 6.8 g/dL (6.4-8.2); Troponin I < 50 ng/L (<or=60)
[2022-03-06 14:47] LABS: D-Dimer 163 ng/mlFEU (<500)
[2022-03-06 15:13] LABS: TSH (W/Ref FT4) 0.53 uIU/mL (0.36-3.74)
--- NOTE | 2022-03-06 15:26 | W.ED.GENAD ---
Discharge Plan Disposition Patient Disposition: HOME Condition: Improving Discharge Details Clinical Impression: Bradycardia, Chest pain Primary Care Provider: Lili Cabrera ED Provider: Ubaldo Rondon Home Meds and New Rx's Prescriptions: Continued albuterol sulfate [ProAir HFA] 200 PUFF HFA aerosol inhaler 2 puff Inhalation PRN PRN methadone 10 MG/ML concentrate 65 mg PO DAILY acetaminophen [Acetaminophen Extra Strength] 500 mg Tablet 500 mg PO Q6H PRN ibuprofen 600 mg Tablet 600 mg PO TID PRN Discharge Instructions Instructions: Chest Pain (ED), Bradycardia (ED) Additional Instructions: At this time your laboratory values do not reveal any obvious emergent process. Your heart rate remains showing bradycardia but at times does come up into the 60s, 70s, 80s. Your blood pressure is unremarkable. Your Lyme titer is pending. Please watch for new or worsening symptoms and return immediately to the ER. Otherwise I strongly recommend that you contact your primary care provider and the methadone clinic first thing Tuesday to discuss your ER visit, ongoing symptoms, and need for outpatient reevaluation. I have set you up for a Holter monitor on Tuesday. Discharge Orders Other Ambulatory Orders: Holter Monitor (STAT) Timeframe: [id number] Facility: [facility] - Location: Respiratory Therapy Ordered By: Ubaldo Rondon Discharge Data Discharge Date/Time-TO BE ENTERED AT DEPARTURE: 03/06/22 18:40 Medical Decision Making <LORA Lyle - Last Filed: 03/07/22 21:28> Patient is fully alert and oriented, he is tired in appearance He is able to answer all questions Except for did not show evidence of acute abnormality His troponin is negative His EKG showed sinus bradycardia without evidence of block He is not having active chest pain at this time. He denies any abdominal pain. Patient denies any illicit drug use NO family history of early cardiac disease, his heart score is a 1 Of note, I did perform orthostaticblood pressure was stable however the transient increase in heart rate when he stands, he is symptomatic and complaining of feeling He will be given 2 L of normal saline IV Lyme studies are pending. Signed out to Ubaldo Rondon pending repeat troponin and EKG at 1705, bedside US, ambulatory trial with pulse oximeter, and possible holter placement Please excuse documentation on mental health and behavioral health observation, this was entered in error on this patient <LORA Goetz - Last Filed: 03/06/22 18:16> Patient is fully alert and oriented, he is tired in appearance He is able to answer all questions Except for did not show evidence of acute abnormality His troponin is negative His EKG showed sinus bradycardia without evidence of block He is not having active chest pain at this time. He denies any abdominal pain. Patient denies any illicit drug use NO family history of early cardiac disease, his heart score is a 1 Of note, I did perform orthostaticblood pressure was stable however the transient increase in heart rate when he stands, he is symptomatic and complaining of feeling He will be given 2 L of normal saline IV Lyme studies are pending. Signed out to Ubaldo Rondon pending repeat troponin and EKG at 1705, bedside US, ambulatory trial with pulse oximeter, and possible holter placement Please excuse documentation on mental health and behavioral health observation, this was entered in error on this patient 1530 Ubaldo Rondon PA-C I am seeing the care of this 31-year-old male from my colleague LORA Cardenas, please see her initial HPI and examination. At time of signout awaiting repeat troponin and EKG, Dr. Beal to perform bedside cardiac ultrasound, trial ambulation, and possible Holter placement. I personally evaluated the patient, his heart rate was 44 upon entering the room but after speaking with him for quite some time his heart rate was in the 60s. He remains asymptomatic. Hemodynamically stable. Delta troponin remains less than 50. Repeat EKG obtained at 1700, sinus bradycardia, ventricular rate of 39, likely early repolarization pattern. Bedside cardiac ultrasound performed and unremarkable, please see note by Dr. Beal. Patient is requesting discharge. He is agreeable to a trial ambulation. He was able to ambulate steadily throughout the ER, remained asymptomatic, heart rate between 53 and 63. Prior to discharge traffic monitor specialist shows a heart rate of 83 with a blood pressure of 139/72. I did reach out to respiratory therapy and unfortunately I am unable to provide a Holter monitor at this time, will place order for Tuesday morning. We discussed the importance of outpatient follow-up through his PCP, contacting them Tuesday promptly. We discussed the Holter monitor on Tuesday as well as contacting his methadone clinic regarding his dose and bradycardia. He does understand that his Lyme titer is pending. We did discuss his heart rate, observation admission, but he would prefer to be discharged home. He has the capacity to make this decision. Strict discharge and return precautions were provided. Patient understands, is agreeable to this plan, and has no additional questions or concerns upon discharge. This documentation was generated using [employer] system, please disregard any oddities of phrase or misspellings. Medical Records Medical records reviewed: Yes I reviewed the patient's medical records. Lab Data Lab results reviewed: Yes I reviewed the patient's lab results. Labs: Laboratory Tests Range/Units 03/06/22 03/06/22 03/06/22 14:05 14:05 14:05 WBC (4.4-10.8) 10^3/uL 6.43 RBC (4.36-5.78) 10^6/uL 4.06 L Hgb (13.5-17.5) g/dL 11.7 L Hct (40.0-50.0) % 35.9 L MCV (80-95) fL 88 MCH (27.0-33.0) pg 28.8 MCHC (32.0-36.0) % 32.6 RDW (11.8-14.1) % 13.5 Plt Count (130-400) 10^3/uL 184 MPV (8.0-11.0) fL 9.5 Immature Gran % 0.2 Neutrophils % 59.9 Lymphocytes % 31.3 Monocytes % 7.2 Eosinophils % 1.1 Basophils % 0.3 Nucleated RBC % (0.0-0.3) % 0.0 Absolute Neutrophils (1.2-6.7) 10^3/uL 3.86 Absolute Lymphocytes (1.2-3.4) 10^3/uL 2.01 Absolute Monocytes (0.1-0.8) 10^3/uL 0.46 Absolute Eosinophils (0.0-0.7) 10^3/uL 0.07 Absolute Basophils (0.0-0.2) 10^3/uL 0.02 D-Dimer (<500) ng/mlFEU 163 Sodium (136-145) mmol/L 139 Potassium (3.5-5.1) mmol/L 3.8 Chloride (98-107) mmol/L 104 Carbon Dioxide (21.0-32.0) mmol/L 29.5 Anion Gap (3-11) mmol/L 5.5 BUN (7-18) mg/dL 13 Creatinine (0.70-1.30) mg/dL 0.8 Estimated GFR/1.73 m2 (mL/min/1.73m2) >= 60.00 Glucose (74-106) mg/dL 149 H Calcium (8.5-10.1) mg/dL 8.5 Magnesium (1.8-2.4) mg/dL 1.9 Total Bilirubin (0.2-1.0) mg/dL 0.3 AST (15-37) U/L 63 H ALT (16-63) U/L 90 H Alkaline Phosphatase (46-116) U/L 86 Troponin I (<or=60) ng/L < 50 Total Protein (6.4-8.2) g/dL 6.8 Albumin (3.4-5.0) g/dL 3.5 Lipase (73-393) U/L 34 TSH (0.36-3.74) uIU/mL COVID-19 Source SARS-CoV-2 (PCR) (Negative) Influenza Type A (PCR) (Negative) Influenza Type B (PCR) (Negative) RSV (PCR) (Negative) Range/Units 03/06/22 03/06/22 03/06/22 14:05 14:05 14:05 WBC (4.4-10.8) 10^3/uL RBC (4.36-5.78) 10^6/uL Hgb (13.5-17.5) g/dL Hct (40.0-50.0) % MCV (80-95) fL MCH (27.0-33.0) pg MCHC (32.0-36.0) % RDW (11.8-14.1) % Plt Count (130-400) 10^3/uL MPV (8.0-11.0) fL Immature Gran % Neutrophils % Lymphocytes % Monocytes % Eosinophils % Basophils % Nucleated RBC % (0.0-0.3) % Absolute Neutrophils (1.2-6.7) 10^3/uL Absolute Lymphocytes (1.2-3.4) 10^3/uL Absolute Monocytes (0.1-0.8) 10^3/uL Absolute Eosinophils (0.0-0.7) 10^3/uL Absolute Basophils (0.0-0.2) 10^3/uL D-Dimer (<500) ng/mlFEU Sodium (136-145) mmol/L Potassium (3.5-5.1) mmol/L Chloride (98-107) mmol/L Carbon Dioxide (21.0-32.0) mmol/L Anion Gap (3-11) mmol/L BUN (7-18) mg/dL Creatinine (0.70-1.30) mg/dL Estimated GFR/1.73 m2 (mL/min/1.73m2) Glucose (74-106) mg/dL Calcium (8.5-10.1) mg/dL Magnesium (1.8-2.4) mg/dL Cancelled Total Bilirubin (0.2-1.0) mg/dL AST (15-37) U/L ALT (16-63) U/L Alkaline Phosphatase (46-116) U/L Troponin I (<or=60) ng/L Total Protein (6.4-8.2) g/dL Albumin (3.4-5.0) g/dL Lipase (73-393) U/L Cancelled TSH (0.36-3.74) uIU/mL 0.53 COVID-19 Source SARS-CoV-2 (PCR) (Negative) Influenza Type A (PCR) (Negative) Influenza Type B (PCR) (Negative) RSV (PCR) (Negative) Range/Units 03/06/22 03/06/22 16:25 17:00 WBC (4.4-10.8) 10^3/uL RBC (4.36-5.78) 10^6/uL Hgb (13.5-17.5) g/dL Hct (40.0-50.0) % MCV (80-95) fL MCH (27.0-33.0) pg MCHC (32.0-36.0) % RDW (11.8-14.1) % Plt Count (130-400) 10^3/uL MPV (8.0-11.0) fL Immature Gran % Neutrophils % Lymphocytes % Monocytes % Eosinophils % Basophils % Nucleated RBC % (0.0-0.3) % Absolute Neutrophils (1.2-6.7) 10^3/uL Absolute Lymphocytes (1.2-3.4) 10^3/uL Absolute Monocytes (0.1-0.8) 10^3/uL Absolute Eosinophils (0.0-0.7) 10^3/uL Absolute Basophils (0.0-0.2) 10^3/uL D-Dimer (<500) ng/mlFEU Sodium (136-145) mmol/L Potassium (3.5-5.1) mmol/L Chloride (98-107) mmol/L Carbon Dioxide (21.0-32.0) mmol/L Anion Gap (3-11) mmol/L BUN (7-18) mg/dL Creatinine (0.70-1.30) mg/dL Estimated GFR/1.73 m2 (mL/min/1.73m2) Glucose (74-106) mg/dL Calcium (8.5-10.1) mg/dL Magnesium (1.8-2.4) mg/dL Total Bilirubin (0.2-1.0) mg/dL AST (15-37) U/L ALT (16-63) U/L Alkaline Phosphatase (46-116) U/L Troponin I (<or=60) ng/L < 50 Total Protein (6.4-8.2) g/dL Albumin (3.4-5.0) g/dL Lipase (73-393) U/L TSH (0.36-3.74) uIU/mL COVID-19 Source Not Applicable SARS-CoV-2 (PCR) (Negative) Negative Influenza Type A (PCR) (Negative) Negative Influenza Type B (PCR) (Negative) Negative RSV (PCR) (Negative) Negative HPI <LORA Lyle - Last Filed: 03/07/22 21:28> General Date/Time Provider Initiated Documentation: 03/06/22 13:36. HPI Narrative: this 31-year-old gentleman with history of ADHD, hepatitis C, nausea and vomiting presents with report of feeling weak and tired. He states that he felt tired this morning when he awoke. He has not used IV drugs for the past 8 years per patient. He has been taking methadone, he is on 55 mg which was recently decreased. He states that he had chest pain which started at about 130 today. He was not exerting himself at the time. He states he has had the symptoms intermittently for the past Month. He has not been evaluated for that per patient. He denies any recent flights, surgeries, long drives. He denies any exacerbating or alleviating factors. He denies any known early family history of cardiac disease. He denies any calf pain or swelling. He denies any shortness of breath or nausea. He states that he checked his pulse and it was low at home which was new for him. He denies any additional medications aside from the methadone. He feels tired but denies any confusion. His girlfriend he appears tired but not confused. Patient denies any falls or injuries. He does work as a licensed professional counselor and has been working consistently up until the last 3 days without symptoms. Related Data Home Medications Medication Instructions Recorded Confirmed albuterol sulfate 90 mcg/actuation 2 puff inhalation PRN PRN 09/18/13 03/06/22 aerosol inhaler (ProAir HFA) methadone 10 mg/mL oral concentrate 65 mg PO DAILY 02/06/18 03/06/22 acetaminophen 500 mg tablet 500 mg PO Q6H PRN 03/05/21 03/06/22 (Acetaminophen Extra Strength) ibuprofen 600 mg tablet 600 mg PO TID PRN 03/05/21 03/06/22 Allergies Allergy/AdvReac Type Severity Reaction Status Date / Time No Known Allergies Allergy Verified 03/06/22 13:21 General Stated Complaint: Chest Pain JAVIER: 3 Review of Systems <LORA Lyle - Last Filed: 03/07/22 21:28> All systems reviewed & are unremarkable except as noted in HPI and below PFSH <LORA Lyle - Last Filed: 03/07/22 21:28> All Active Problems (Updated 03/06/22 @ 17:53 by LORA Goetz) Pain, dental (Acute) Status post tooth extraction (Acute) Bradycardia (Acute) Chest pain (Acute) Substance use disorder (Acute) Hx of IVDU, Methadone through [facility] Pain, dental (Acute) Dental infection (Acute) Nausea & vomiting (Acute) Odontalgia (Acute) Dental infection (Acute) Hepatitis C infection (Chronic) Major depressive disorder (Chronic) Generalized anxiety disorder (Chronic) ADHD (attention deficit hyperactivity disorder) (Chronic) Surgical History (Updated 06/03/21 @ 19:40 by Tereza Pink DO) History of left inguinal hernia repair at [facility] S/P tonsillectomy Family History Mother , at 47 of lung cancer COPD (chronic obstructive pulmonary disease) Lung cancer Father Bladder cancer COPD (chronic obstructive pulmonary disease) Brother No problems noted. Brother Substance abuse Asthma Brother Substance abuse Asthma Sister No problems noted. Sister No problems noted. Daughter No problems noted. Maternal Grandfather Asthma Maternal Grandmother Cancer Unknown type COPD (chronic obstructive pulmonary disease) Paternal Grandfather Stroke Heart disease Myocardial infarction Paternal Grandmother Stroke Social History Smoking/Tobacco Use Status: Current every day Tobacco Type: cigarettes Smoking risk assessment performed?: Yes Alcohol Intake: former Drug use: Daily Substance use type: former substance user and marijuana Details: Goes to the Methadone clinic 1 x week Do you feel safe at home: Yes Do you feel safe in your relationship?: Yes Exam <LORA Lyle - Last Filed: 03/07/22 21:28> Const General: cooperative and no acute distress Other: Tired in appearance Eyes Pupils: PERRL Resp Effort & Inspection: normal respiratory effort Auscultation: clear to auscultation bilaterally Cardio Rate: bradycardic Rhythm: regular rhythm Heart Sounds: no murmurs GI Inspection: normal to inspection Other: Nontender abdominal exam Skin General skin exam: no rashes or lesions noted Neuro General: patient alert and patient oriented x3 Extrem General: normal to inspection Course <LORA Lyle Last Filed: 03/07/22 21:28> Vital Signs Vital signs: Vital Signs Temperature 37.0 C 03/06/22 13:17 Pulse 44 L 03/06/22 13:17 Respiratory Rate 16 03/06/22 13:17 Blood Pressure 142/73 H 03/06/22 13:17 Pulse Oximetry 99 03/06/22 13:17 Temperature 37.0 C 03/06/22 13:17 Temperature Source Temporal Artery Scan 03/06/22 13:17 Pulse 41 L 03/06/22 15:16 Pulse 42 L 03/06/22 15:20 Respiratory Rate 13 07/23/22 15:20 Respiratory Effort Non-Labored 03/06/22 13:43 Respiratory Depth Normal 03/06/22 13:43 Respiratory Pattern Normal 03/06/22 13:43 Blood Pressure 121/68 03/06/22 15:16 Blood Pressure Mean 82 03/06/22 15:16 Blood Pressure Position Sitting 03/06/22 13:17 Pulse Oximetry 98 03/06/22 15:20 Oxygen Delivery Method Room Air 03/06/22 13:17 Oxygen Flow Rate 0 03/06/22 13:17 Pain Level 4 03/06/22 13:17 Lab/Test Results Lab/Test Results: Laboratory Tests Range/Units 03/06/22 03/06/22 03/06/22 14:05 14:05 14:05 WBC (4.4-10.8) 10^3/uL 6.43 RBC (4.36-5.78) 10^6/uL 4.06 L Hgb (13.5-17.5) g/dL 11.7 L Hct (40.0-50.0) % 35.9 L MCV (80-95) fL 88 MCH (27.0-33.0) pg 28.8 MCHC (32.0-36.0) % 32.6 RDW (11.8-14.1) % 13.5 Plt Count (130-400) 10^3/uL 184 MPV (8.0-11.0) fL 9.5 Immature Gran % 0.2 Neutrophils % 59.9 Lymphocytes % 31.3 Monocytes % 7.2 Eosinophils % 1.1 Basophils % 0.3 Nucleated RBC % (0.0-0.3) % 0.0 Absolute Neutrophils (1.2-6.7) 10^3/uL 3.86 Absolute Lymphocytes (1.2-3.4) 10^3/uL 2.01 Absolute Monocytes (0.1-0.8) 10^3/uL 0.46 Absolute Eosinophils (0.0-0.7) 10^3/uL 0.07 Absolute Basophils (0.0-0.2) 10^3/uL 0.02 D-Dimer (<500) ng/mlFEU 163 Sodium (136-145) mmol/L 139 Potassium (3.5-5.1) mmol/L 3.8 Chloride (98-107) mmol/L 104 Carbon Dioxide (21.0-32.0) mmol/L 29.5 Anion Gap (3-11) mmol/L 5.5 BUN (7-18) mg/dL 13 Creatinine (0.70-1.30) mg/dL 0.8 Estimated GFR/1.73 m2 (mL/min/1.73m2) >= 60.00 Glucose (74-106) mg/dL 149 H Calcium (8.5-10.1) mg/dL 8.5 Magnesium (1.8-2.4) mg/dL 1.9 Total Bilirubin (0.2-1.0) mg/dL 0.3 AST (15-37) U/L 63 H ALT (16-63) U/L 90 H Alkaline Phosphatase (46-116) U/L 86 Troponin I (<or=60) ng/L < 50 Total Protein (6.4-8.2) g/dL 6.8 Albumin (3.4-5.0) g/dL 3.5 Lipase (73-393) U/L 34 TSH (0.36-3.74) uIU/mL Range/Units 03/06/22 03/06/22 03/06/22 14:05 14:05 14:05 WBC (4.4-10.8) 10^3/uL RBC (4.36-5.78) 10^6/uL Hgb (13.5-17.5) g/dL Hct (40.0-50.0) % MCV (80-95) fL MCH (27.0-33.0) pg MCHC (32.0-36.0) % RDW (11.8-14.1) % Plt Count (130-400) 10^3/uL MPV (8.0-11.0) fL Immature Gran % Neutrophils % Lymphocytes % Monocytes % Eosinophils % Basophils % Nucleated RBC % (0.0-0.3) % Absolute Neutrophils (1.2-6.7) 10^3/uL Absolute Lymphocytes (1.2-3.4) 10^3/uL Absolute Monocytes (0.1-0.8) 10^3/uL Absolute Eosinophils (0.0-0.7) 10^3/uL Absolute Basophils (0.0-0.2) 10^3/uL D-Dimer (<500) ng/mlFEU Sodium (136-145) mmol/L Potassium (3.5-5.1) mmol/L Chloride (98-107) mmol/L Carbon Dioxide (21.0-32.0) mmol/L Anion Gap (3-11) mmol/L BUN (7-18) mg/dL Creatinine (0.70-1.30) mg/dL Estimated GFR/1.73 m2 (mL/min/1.73m2) Glucose (74-106) mg/dL Calcium (8.5-10.1) mg/dL Magnesium (1.8-2.4) mg/dL Cancelled Total Bilirubin (0.2-1.0) mg/dL AST (15-37) U/L ALT (16-63) U/L Alkaline Phosphatase (46-116) U/L Troponin I (<or=60) ng/L Total Protein (6.4-8.2) g/dL Albumin (3.4-5.0) g/dL Lipase (73-393) U/L Cancelled TSH (0.36-3.74) uIU/mL 0.53 Sign Out <LORA Lyle - Last Filed: 03/07/22 21:28> Sign Out Data: Sign Out Comment: pending 8 hours of observation and mental health assessment for suicide attempt Last updated by Liset Cardenas PA at 03/06/22 16:24
--- NOTE | 2022-03-06 15:52 | DI.VRAD_ITS ---
PROCEDURE INFORMATION: Exam: XR Chest Exam date and time: 03/06/2022 2:43 PM Age: 31 years old Clinical indication: Pain; Left-sided TECHNIQUE: Imaging protocol: Radiologic exam of the chest. Views: 2 views. COMPARISON: CR XR PORTABLE CHEST AP 08/09/2021 10:51 FINDINGS: Lungs: Unremarkable. No consolidation. Pleural spaces: Unremarkable. No pleural effusion. No pneumothorax. Heart/Mediastinum: Unremarkable. No cardiomegaly. Bones/joints: Unremarkable for patient's age. IMPRESSION: No acute cardiopulmonary findings. Dictated and Authenticated by: Mattie Hernandez MD. Ordering:PETEY Hutchins MD
--- NOTE | 2022-03-06 16:00 | RT.EKG_ITS ---
APPROVED REPORT Exam: Resting ECG Reason for Exam: chest pain Patient Location: E HR:39 bpm ECG Measurements Heart Rate 39 AXIS UT 127 P 3 QRSd 98 QRS 74 QT 518 T 49 QTc 420 Conclusion Sinus bradycardia...rate< 60 ST elev, probable normal early repol pattern...ST elevation, age<55 sinus bradycardia, normal axis, normal intervals, non ischemic
[2022-03-06 17:08] LABS: COVID-19 PCR Negative (Negative); Influenza A PCR Negative (Negative); Influenza B PCR Negative (Negative); RSV PCR Negative (Negative)
[2022-03-06 17:23] LABS: Troponin I < 50 ng/L (<or=60)
[2022-03-08 11:53] LABS: Lyme Ab w Rflx to Lyme Confirm Negative (Negative)
[2022-03-12 08:26] LABS: Anaplasma phagocytophilum Negative (Negative); B. miyamotoi PCR Negative (Negative); Babesia divergens/MO-1 Negative (Negative); Babesia duncani Negative (Negative); Babesia microti Negative (Negative); Ehrlichia chaffeensis Negative (Negative); Ehrlichia ewingii/canis Negative (Negative); Ehrlichia muris eauclairensis Negative (Negative)
== END 2022-03-06 18:40 | disposition home or self-care (01) ==
PROVIDERS: Physician Assistant; Emergency Provider Physician Assistant; PCP Nurse Practitioner Family
DX: R00.1 Bradycardia, unspecified (principal); R07.9 Chest pain, unspecified; F17.210 Nicotine dependence, cigarettes, uncomplicated; Z20.822 Contact with and (suspected) exposure to COVID-19
CPT/HCPCS: 36410; 80053; 83690; 87637; 87798; 93005; 96360; 96361; 99284; 71046; 83735; 84443; 84484; 85025; 85379; 86618; 93010

== ENCOUNTER 2022-03-08 10:02 | Outpatient (RCR) | payer MEDICAID, SELFPAY ==
--- NOTE | 2022-03-08 10:00 | HOLTER_ITS ---
APPROVED REPORT Conclusion This is a 48-hour Holter monitor ordered for bradycardia Predominant rhythm was sinus with an average heart rate of 63. Minimum was 39, maximum 128. Sinus b radycardia was noted during sleep There were very rare isolated ventricular ectopic beats. There was a 4 beat run of accelerated idiov entricular rhythm, rate 73. There were very rare isolated atrial premature beats There was no atrial fibrillation, no high-grade AV block, no pauses greater than 3 seconds There were no patient symptoms
== END 2022-03-14 23:59 | disposition home or self-care (01) ==
LOC: RT 10:02
PROVIDERS: PCP Nurse Practitioner Family; Visit Provider Physician Assistant
DX: R00.1 Bradycardia, unspecified (principal); I49.8 Other specified cardiac arrhythmias
CPT/HCPCS: 93225; 93226

== ENCOUNTER 2022-11-10 07:29 | Emergency (ER) | payer MEDICAID, SELFPAY ==
[2022-11-10 07:34] VITALS: BP 173/89; PULSE 66; RESP 18; TEMP 37.9; O2SAT 98
--- NOTE | 2022-11-10 07:48 | ED.GENADUL_ITS ---
Discharge Plan Disposition Patient Disposition: Home Condition: Improving Discharge Details Chief Complaint: Nausea/Vomit/Diar Clinical Impression: COVID-19, Acute viral syndrome Primary Care Provider: Lili Cabrera ED Provider: Toi Elkins Home Meds and New Rx's Prescriptions: No Action albuterol sulfate [ProAir HFA] 200 PUFF HFA aerosol inhaler 2 puff Inhalation PRN PRN methadone 10 MG/ML concentrate 65 mg PO DAILY acetaminophen [Acetaminophen Extra Strength] 500 mg Tablet 500 mg PO Q6H PRN ibuprofen 600 mg Tablet 600 mg PO TID PRN Medical Decision Making This is a 31-year-old male who presents from home complaining of 24 hours of vomiting with subjective fever and chills. He states it began after eating shepherds pie. He has not had bloody emesis. He has no known sick contacts or recent travel. Patient arrives with a temp of 37.9, no active vomiting but does appear dehydrated in appearance. Differential diagnosis includes gastroenteritis, dehydration, electrolyte abnormality, flulike or viral illness. He does not demonstrate evidence of peritonitis/acute abdomen. He has otherwise recently been well. IV access was established, screening laboratories obtained, and patient given antiemetic and parenteral fluids. Labs reveal a sodium of 135, potassium 3.8, chloride 98, bicarb 27, BUN 12, creatinine 1.8. Magnesium slightly low at 1.6 and supplemented in the emergency department. Patient CBC was reassuring. Following parenteral medications and fluids. His COVID test was positive. We discussed options for management and will pursue conservative treatment at home. He is stable for discharge HPI General Mode of arrival: ambulatory . Date/Time Provider Initiated Documentation: 11/10/22 07:37 . Limitations to Documentation: no limitations . Information obtained by: patient . History of Present Illness 31 year old M presents to the emergency department with the chief complaint of Vomiting 15-20 times since yesterday, described as moderate, and is localized to the abdomen. Patient reports no radiation. Patient started experiencing this hour(s) and it has been intermittent. No relieving factors improve symptom(s), No exacerbating factors reported . Patient notes fever/chills, loss of appetite, nausea/vomiting and weakness. Patient did receive the following treatments prior to arrival, none Related Data Home Medications Medication Instructions Recorded Confirmed albuterol sulfate 90 mcg/actuation 2 puff inhalation PRN PRN 09/18/13 11/10/22 aerosol inhaler (ProAir HFA) methadone 10 mg/mL oral concentrate 65 mg PO DAILY 02/06/18 11/10/22 acetaminophen 500 mg tablet 500 mg PO Q6H PRN 03/05/21 11/10/22 (Acetaminophen Extra Strength) ibuprofen 600 mg tablet 600 mg PO TID PRN 03/05/21 11/10/22 Allergies Allergy/AdvReac Type Severity Reaction Status Date / Time No Known Allergies Allergy Verified 11/10/22 07:36 General Stated Complaint: Nausea/Vomit/Diar JAVIER: 4 Review of Systems Narrative: Was able to take morning methadone. Nausea and vomiting. Some intermittent p.o. intake. Subjective fever and chills at home. No significant persistent abdominal pain. 8 systems reviewed and otherwise negative PFSH All Active Problems (Updated 11/10/22 @ 08:41 by Toi Elkins MD) Pain, dental (Acute) Status post tooth extraction (Acute) COVID-19 (Acute) Acute viral syndrome (Acute) Substance use disorder (Acute) Hx of IVDU, Methadone through [facility] Pain, dental (Acute) Dental infection (Acute) Nausea & vomiting (Acute) Odontalgia (Acute) Dental infection (Acute) Hepatitis C infection (Chronic) Major depressive disorder (Chronic) Generalized anxiety disorder (Chronic) ADHD (attention deficit hyperactivity disorder) (Chronic) Surgical History History of left inguinal hernia repair at [facility] S/P tonsillectomy Family History Mother , at 47 of lung cancer COPD (chronic obstructive pulmonary disease) Lung cancer Father Bladder cancer COPD (chronic obstructive pulmonary disease) Brother No problems noted. Brother Substance abuse Asthma Brother Substance abuse Asthma Sister No problems noted. Sister No problems noted. Daughter No problems noted. Maternal Grandfather Asthma Maternal Grandmother Cancer Unknown type COPD (chronic obstructive pulmonary disease) Paternal Grandfather Stroke Heart disease Myocardial infarction Paternal Grandmother Stroke Social History Smoking/Tobacco Use Status: Current every day Tobacco Type: cigarettes Smoking risk assessment performed?: Yes Alcohol Intake: former Drug use: Daily Substance use type: former substance user and marijuana Details: Goes to the Methadone clinic 1 x week Do you feel safe at home: Yes Do you feel safe in your relationship?: Yes Exam Narrative Exam Narrative: GEN: awake, alert, oriented 3. Pleasant, well groomed, interactive. HEAD: Normocephalic, atraumatic ENT: Mucous membranes dry, oropharynx unremarkable, External ear exam unremarkable EYES: PERRL, EOMI NECK: Full ROM, no GINI, no menigismus CHEST/RESP: Nontender, clear to auscultation bilateral, no wheeze/rhonchi/rales CARDIOVASCULAR: RRR, no murmur, rub gómez. 2+ Rad pulse bilateral ABDOMEN: Soft, nontender, no mass. +Bowel sounds EXT: Full ROM, no edema, no rash Neuro: Grossly normal neurologic exam, conversant, interactive. Psych: Speech fluent, thoughts congruent, affect normal Course Vital Signs Vital signs: Vital Signs Temperature 37.9 C H 11/10/22 07:34 Pulse 66 11/10/22 07:34 Respiratory Rate 18 11/10/22 07:34 Blood Pressure 173/89 H 11/10/22 07:34 Pulse Oximetry 98 11/10/22 07:34 Temperature 37.9 C H 11/10/22 07:34 Temperature Source Oral 11/10/22 07:34 Pulse 66 11/10/22 07:34 Respiratory Rate 18 11/10/22 07:34 Respiratory Effort Normal 11/10/22 07:37 Blood Pressure 173/89 H 11/10/22 07:34 Blood Pressure Position Sitting 11/10/22 07:34 Pulse Oximetry 98 11/10/22 07:34 Oxygen Delivery Method Room Air 11/10/22 07:34 Oxygen Flow Rate 0 11/10/22 07:34 Pain Level 3 11/10/22 07:34
[2022-11-10] MEDS: Normal Saline 1,000 ML 2000 ML IV (07:49)
[2022-11-10] MEDS: Ondansetron 4 MG/2 ML VIAL IVP (07:51)
[2022-11-10 07:59] LABS: Abs Immature Grans 0.02 10^3/uL (0.0-0.06); Absolute Basophil Count 0.01 10^3/uL (0.0-0.2); Absolute Eosinophil Count 0.02 10^3/uL (0.0-0.7); Absolute Lymphocyte Count 0.93 10^3/uL (1.2-3.4); Absolute Monocyte Count 0.73 10^3/uL (0.1-0.8); Absolute Neutrophil Count 5.59 10^3/uL (1.2-6.7); Basophils % 0.1; Eosinophils % 0.3; HCT 43.3 % (40.0-50.0); Immature Grans % 0.3; Lymphocytes % 12.7; MCHC 32.3 % (32.0-36.0); MCV 84 fL (80-95); MPV 9.7 fL (8.0-11.0); Neutrophils % 76.6; Platelet Count 182 10^3/uL (130-400); RBC 5.18 10^6/uL (4.36-5.78); RDW 14.5 % (11.8-14.1); RDW-SD 44.3 fL
[2022-11-10 08:13] LABS: ALT 63 U/L (16-63); AST 44 U/L (15-37); Albumin 4.2 g/dL (3.4-5.0); Alkaline Phosphatase 102 U/L (46-116); Anion Gap 9.5 mmol/L (3-11); BUN 12 mg/dL (7-18); Bilirubin, Total 0.4 mg/dL (0.2-1.0); CO2 27.5 mmol/L (21.0-32.0); CREATININE 0.8 mg/dL (0.70-1.30); Chloride 98 mmol/L (98-107); Estimated GFR 119.84 (mL/min/1.73m2); Glucose 108 mg/dL (74-106); Magnesium 1.6 mg/dL (1.8-2.4); Potassium 3.8 mmol/L (3.5-5.1); Sodium 135 mmol/L (136-145); Total Protein 8.2 g/dL (6.4-8.2)
[2022-11-10] MEDS: ACETAMINOPHEN 1,000 MG/100 ML BTL 400 MG IVPB (08:16)
[2022-11-10 08:35] LABS: Influenza A PCR Negative (Negative); Influenza B PCR Negative (Negative); RSV PCR Negative (Negative)
[2022-11-10 08:37] LABS: COVID-19 PCR Positive (Negative); Source Nasopharynx
[2022-11-10] MEDS: MAGNESIUM SULFATE 1 GM/100 ML BAG IVPB (08:38)
[2022-11-10] MEDS: Normal Saline 1,000 ML 1000 ML IV (08:45)
== END 2022-11-10 10:05 | disposition home or self-care (01) ==
PROVIDERS: Emergency Provider Emergency Medicine; PCP Nurse Practitioner Family
DX: U07.1 COVID-19 (principal); B34.9 Viral infection, unspecified; E83.42 Hypomagnesemia
CPT/HCPCS: 36415; 80053; 87637; 96361; 96365; 96368; 96375; 99284; 83735; 85025; J0131; J2405; J3475

== ENCOUNTER 2024-04-10 06:28 | Emergency (ER) | payer SELFPAY ==
--- NOTE | 2024-04-10 06:30 | RT.EKG_ITS ---
APPROVED REPORT Exam: Resting ECG Reason for Exam: SOB Patient Location: E HR:62 bpm ECG Measurements Heart Rate 62 AXIS VT 131 P 68 QRSd 102 QRS 79 QT 423 T 31 QTc 431 Conclusion Sinus rhythm...normal P axis, V-rate 60- 99 Probable left ventricular hypertrophy...multiple LVH criteria
[2024-04-10 06:33] VITALS: BP 170/95; PULSE 74; RESP 20; TEMP 37.2; O2SAT 96
[2024-04-10 06:41] VITALS: BP 170/95; PULSE 71; RESP 20; TEMP 37.2; O2SAT 96
--- NOTE | 2024-04-10 07:08 | ED.GENADUL_ITS ---
Discharge Plan Disposition Patient Disposition: Home Condition: Stable Discharge Details Clinical Impression: Community acquired pneumonia, Shortness of breath Primary Care Provider: Lili Cabrera ED Provider: Kishan Corea Home Meds and New Rx's Prescriptions: New azithromycin [Zithromax Z-Giacomo] 250 mg tablet See Rx Instructions .ROUTE .COMPLEX Qty: 6 0RF Rx Instructions: For 250 mg dose pack: take 500 mg today (day 1), then 250 mg for 4 days (days 2-5) prednisone 20 mg tablet 60 mg PO DAILY 4 Days Qty: 12 0RF amoxicillin-pot clavulanate 875-125 mg tablet 1 tab PO BID Qty: 14 0RF Continued albuterol sulfate [ProAir HFA] 200 PUFF HFA aerosol inhaler 2 puff Inhalation PRN PRN methadone 10 MG/ML concentrate 65 mg PO DAILY acetaminophen [Acetaminophen Extra Strength] 500 mg Tablet 500 mg PO Q6H PRN ibuprofen 600 mg Tablet 600 mg PO TID PRN Discharge Instructions Additional Instructions: Your x-ray showed that you have a pneumonia Follow-up with your primary care provider especially if not improving in 1 week. You should have a follow-up x-ray done to determine if the pneumonia has resolved. If you feel more ill or have worsening shortness of breath return to the emergency department for reevaluation Stand Alone Forms: Work Release HPI General Mode of arrival: ambulatory . Date/Time Provider Initiated Documentation: 04/10/24 06:39 . Limitations to Documentation: no limitations . Information obtained by: patient . History of Present Illness 33 year old M presents to the emergency department with the chief complaint of cough, described as moderate, Patient started experiencing this day(s) (3) and it has been intermittent. No relieving factors improve symptom(s), No exacerbating factors reported . Patient notes shortness of breath; denies fever/chills. Related Data Home Medications ?Medication ?Instructions ?Recorded ?Confirmed albuterol sulfate 90 mcg/actuation 2 puff inhalation PRN PRN 09/18/13 04/10/24 aerosol inhaler (ProAir HFA) methadone 10 mg/mL oral concentrate 65 mg PO DAILY 02/06/18 04/10/24 acetaminophen 500 mg tablet 500 mg PO Q6H PRN 03/05/21 04/10/24 (Acetaminophen Extra Strength) ibuprofen 600 mg tablet 600 mg PO TID PRN 03/05/21 04/10/24 amoxicillin 875 mg-potassium 1 tab PO BID #14 tabs 04/10/24 clavulanate 125 mg tablet azithromycin 250 mg tablet See Rx Instructions PO .COMPLEX #6 04/10/24 (Zithromax Z-Giacomo) tabs prednisone 20 mg tablet 60 mg (3 x 20 mg) PO DAILY 4 days 04/10/24 #12 tabs Previous Rx's ?Medication ?Instructions ?Recorded amoxicillin 875 mg-potassium 1 tab PO BID #14 tabs 04/10/24 clavulanate 125 mg tablet azithromycin 250 mg tablet See Rx Instructions PO .COMPLEX #6 04/10/24 (Zithromax Z-Giacomo) tabs prednisone 20 mg tablet 60 mg (3 x 20 mg) PO DAILY 4 days 04/10/24 #12 tabs Allergies Allergy/AdvReac Type Severity Reaction Status Date / Time No Known Allergies Allergy Verified 04/10/24 06:50 General Stated Complaint: SOB JAVIER: 3 Review of Systems All systems reviewed & are unremarkable except as noted in HPI and below Constitutional Constitutional: Denies chills, Denies fever(s) and Denies weakness Gastrointestinal Gastrointestinal: Denies abdominal pain, Denies nausea and Denies vomiting Musculoskeletal Musculoskeletal: Denies joint swelling Integumentary/Breasts Skin/Breast: Denies rash Neurologic Neurologic: Denies weakness Exam Const General: no acute distress Orientation: alert HENMS Head: normal to inspection Ears: external ears normal General nose exam: external nose normal Mouth: moist mucous membranes Eyes General: appearance normal, both eyes and all related structures Neck Neck: normal visual inspection Resp Effort & Inspection: normal respiratory effort, able to speak in complete sentences and cough Auscultation: wheezes Cardio Jugular venous pressure: no JVD Rate: regular rate Heart Sounds: no murmurs Skin General skin exam: no rashes or lesions noted Neuro General: patient alert and patient oriented x3 Extrem General: normal to inspection Psych Mental Status: mental status grossly normal Course Vital Signs Vital signs: Vital Signs Temperature 37.2 C 04/10/24 06:33 Pulse 74 04/10/24 06:33 Respiratory Rate 20 04/10/24 06:33 Blood Pressure 170/95 H 04/10/24 06:33 Pulse Oximetry 96 04/10/24 06:33 Temperature 37.2 C 04/10/24 06:41 Temperature Source Oral 04/10/24 06:41 Pulse 71 04/10/24 06:41 Respiratory Rate 20 04/10/24 06:41 Respiratory Effort Non-Labored 04/10/24 06:41 Respiratory Depth Normal 04/10/24 06:41 Respiratory Pattern Normal 04/10/24 06:41 Blood Pressure 170/95 H 04/10/24 06:41 Blood Pressure Position Sitting 04/10/24 06:41 Pulse Oximetry 96 04/10/24 06:41 Oxygen Delivery Method Room Air 04/10/24 06:41 Oxygen Flow Rate 0 04/10/24 06:33 Pain Level 7 04/10/24 06:41 Medical Decision Making 33-year-old male with a history of prior substance abuse who states he has been clean for 10 years and is currently on methadone, chronic smoker, who comes in with 3 days of intermittent productive cough and shortness of breath. He says he feels like his chest is tight and cannot get deep breaths then. Denies any severe chest pressure. He has not had any fevers, no abdominal pain, no fevers, no recent travel. He is alert and oriented on arrival speaking clearly in no distress. He has wheezing at the apices bilaterally and has rhonchi at the bases bilaterally. No JVD, no leg swelling or calf tenderness. No hypoxia or significant tachycardia. Suspect URI versus pneumonia versus asthma versus COPD exacerbation. Will proceed with treating his symptoms with Solu-Medrol and DuoNeb, will obtain chest x-ray and given his complaint of chest tightness obtain an EKG and troponin. Will also check CBC and CMP and a Fluvid. He is Wells score low and PERC negative so doubt PE. No tearing back pain and equal peripheral pulses so doubt dissection. Labs unremarkable, Fluvid negative, troponin negative and given he said symptoms for well over 3 hours do not feel that delta troponin is indicated. His x-ray does show bilateral infiltrates. I feel he is stable for outpatient therapy and will initiate community-acquired pneumonia coverage with Augmentin and azithromycin. Will also provide a short course of prednisone. He will follow- up with his PCP and have a follow-up x-ray to determine if his infiltrates have resolved. Return precautions given Differential Diagnosis Differential Diagnosis: URI, pneumonia, asthma, COPD Imaging Data Radiologic Study: Attestation: I personally reviewed and interpreted this imaging study as follows: Imaging: X-Ray Radiologist's impression: bilateral infiltrates Lab Data Lab results reviewed: Yes I reviewed the patient's lab results. ECG Data Attestation: I personally reviewed and interpreted this ECG (s) as follows: Prior ECG tracings: available for review Interpretation: sinus rate of 62 pr 131 no stemi Quality:SDOH Health Related Social Needs: No Data to Display PFSH All Active Problems (Updated 04/10/24 @ 08:19 by Kishan Corea MD) Shortness of breath (Acute) Community acquired pneumonia (Acute) COVID-19 (Acute) Status post tooth extraction (Acute) Pain, dental (Acute) Substance use disorder (Acute) Hx of IVDU, Methadone through [facility] Pain, dental (Acute) Dental infection (Acute) Nausea & vomiting (Acute) Odontalgia (Acute) Dental infection (Acute) Hepatitis C infection (Chronic) Major depressive disorder (Chronic) Generalized anxiety disorder (Chronic) ADHD (attention deficit hyperactivity disorder) (Chronic) Surgical History History of left inguinal hernia repair at [facility] S/P tonsillectomy Family History Mother , at 47 of lung cancer COPD (chronic obstructive pulmonary disease) Lung cancer Father Bladder cancer COPD (chronic obstructive pulmonary disease) Brother No problems noted. Brother Substance abuse Asthma Brother Substance abuse Asthma Sister No problems noted. Sister No problems noted. Daughter No problems noted. Maternal Grandfather Asthma Maternal Grandmother Cancer Unknown type COPD (chronic obstructive pulmonary disease) Paternal Grandfather Stroke Heart disease Myocardial infarction Paternal Grandmother Stroke Social History Smoking/Tobacco Use Status: Current every day Tobacco Type: cigarettes Years smoked: 10 Tobacco: How many years used: 10 Smoking risk assessment performed?: Yes Alcohol Intake: former Drug use: Current Sobriety Substance use type: former substance user and marijuana Details: Goes to the Methadone clinic 1 x week Do you feel safe at home: Yes Do you feel safe in your relationship?: Yes
[2024-04-10 07:18] LABS: Abs Immature Grans 0.07 10^3/uL (0.0-0.06); Absolute Basophil Count 0.01 10^3/uL (0.0-0.2); Absolute Eosinophil Count 0.05 10^3/uL (0.0-0.7); Absolute Lymphocyte Count 1.43 10^3/uL (1.2-3.4); Absolute Monocyte Count 0.99 10^3/uL (0.1-0.8); Absolute Neutrophil Count 7.46 10^3/uL (1.2-6.7); Basophils % 0.1 %; Eosinophils % 0.5 %; HCT 38.1 % (40.0-50.0); HGB 12.8 g/dL (13.5-17.5); Immature Grans % 0.7 %; Lymphocytes % 14.3 %; MCHC 33.6 % (32.0-36.0); MCV 86 fL (80-95); MPV 9.3 fL (8.0-11.0); Monocytes % 9.9 %; Neutrophils % 74.5 %; Platelet Count 274 10^3/uL (130-400); RBC 4.41 10^6/uL (4.36-5.78); RDW 12.5 % (11.8-14.1); RDW-SD 39.8 fL; WBC 10.01 10^3/uL (4.4-10.8)
[2024-04-10 07:30] VITALS: RESP 18; RESP 2
[2024-04-10] MEDS: Normal Saline 1,000 ML 1000 ML IV (07:30)
[2024-04-10] MEDS: Albuterol/Ipratropium 3 ML UPD VIAL UPD (07:30)
[2024-04-10] MEDS: methylPREDNISolone SUCC 125 MG VIAL IVP (07:30)
[2024-04-10 07:34] LABS: ALT 44 U/L (16-63); AST 29 U/L (15-37); Albumin 3.4 g/dL (3.4-5.0); Alkaline Phosphatase 106 U/L (46-116); Anion Gap 9.4 mmol/L (3-11); BUN 12 mg/dL (7-18); Bilirubin, Total 0.74 mg/dL (0.2-1.0); CO2 27.6 mmol/L (21.0-32.0); CREATININE 0.8 mg/dL (0.70-1.30); Calcium 8.9 mg/dL (8.5-10.1); Chloride 99 mmol/L (98-107); Estimated GFR 118.36 (mL/min/1.73m2); Glucose 116 mg/dL (74-106); Potassium 3.7 mmol/L (3.5-5.1); Sodium 136 mmol/L (136-145); Total Protein 7.8 g/dL (6.4-8.2)
[2024-04-10 07:36] LABS: Magnesium 1.8 mg/dL (1.8-2.4); Troponin I < 50 ng/L (< or =60)
--- NOTE | 2024-04-10 08:05 | DI.RAD_ITS ---
Exam(s) XR CHEST 2V PA LATERAL EXAM: XR CHEST 2V PA LATERAL CLINICAL HISTORY: cough, dyspnea. TECHNIQUE: 2D digital imaging was performed. COMPARISON: CR,XR XR CHEST 2V PA LATERAL from 03/06/2022 FINDINGS: 2 views: Heart size is normal. The mediastinum is not widened. There is mild infiltrate in the lingular segment of the left lung and medial segment of the right mid dle lobe. No pleural effusions. No pulmonary edema. IMPRESSION: Bilateral infiltrates as described above.. There are no pleural effusions. Appropriate follow-up re commended. DATA REPOSITORY: RADIATION DOSE DELIVERED:
[2024-04-10 08:06] LABS: COVID-19 PCR Negative (Negative); Influenza A PCR Negative (Negative); Influenza B PCR Negative (Negative); RSV PCR Negative (Negative)
[2024-04-10 08:07] LABS: Source Nasopharynx
[2024-04-10] MEDS: Amoxicillin 875/Clav. 125 TAB PO (08:20)
[2024-04-10 08:24] LABS: Procalcitonin 0.1 ng/mL
== END 2024-04-10 08:32 | disposition home or self-care (01) ==
PROVIDERS: Emergency Provider Emergency Medicine; PCP Nurse Practitioner Family
DX: J18.9 Pneumonia, unspecified organism (principal); R06.02 Shortness of breath; R07.9 Chest pain, unspecified; F17.210 Nicotine dependence, cigarettes, uncomplicated
CPT/HCPCS: 80053; 84145; 87637; 93005; 94640; 96361; 96374; 99285; 71046; 83735; 84484; 85025; 93010; 99284; J2919; J7620

== ENCOUNTER 2024-05-14 07:32 | Emergency (ER) | payer SELFPAY ==
[2024-05-14 07:39] VITALS: BP 157/79; PULSE 54; RESP 16; TEMP 36.6; O2SAT 97
--- NOTE | 2024-05-14 07:58 | ED.GENADUL_ITS ---
Discharge Plan Disposition Patient Disposition: Home Condition: Stable Discharge Details Clinical Impression: Contusion of rib on right side Primary Care Provider: Lili Cabrera ED Provider: Kishan Corea Home Meds and New Rx's Prescriptions: New lidocaine 5 % adhesive patch,medicated 1 patch topical DAILY Qty: 30 0RF Rx Instructions: leave on most painful area for up to 12 hrs Continued albuterol sulfate [ProAir HFA] 200 PUFF HFA aerosol inhaler 2 puff Inhalation PRN PRN methadone 10 MG/ML concentrate 65 mg PO DAILY acetaminophen [Acetaminophen Extra Strength] 500 mg Tablet 500 mg PO Q6H PRN ibuprofen 600 mg Tablet 600 mg PO TID PRN Discharge Instructions Additional Instructions: Your x-ray did not show any broken bones. You likely have a bruised rib You can take 1000 mg of acetaminophen and 600 mg of ibuprofen every 6 hours as needed. If not better in a week follow-up with your primary care provider If you feel more ill, have severe shortness of breath or severe worsening pain return to the emergency department for reevaluation. Stand Alone Forms: Work Release HPI General Mode of arrival: ambulatory . Date/Time Provider Initiated Documentation: 05/14/24 07:44 . Limitations to Documentation: no limitations . Information obtained by: patient . History of Present Illness 33 year old M presents to the emergency department with the chief complaint of right sided rib pain, described as moderate, Quality is described as aching, Patient reports no radiation. and it has been constant. No relieving factors improve symptom(s), No exacerbating factors reported . Patient notes denies fever/chills and shortness of breath. Patient did receive the following treatments prior to arrival, none Related Data Home Medications ?Medication ?Instructions ?Recorded ?Confirmed albuterol sulfate 90 mcg/actuation 2 puff inhalation PRN PRN 09/18/13 05/14/24 aerosol inhaler (ProAir HFA) methadone 10 mg/mL oral concentrate 65 mg PO DAILY 02/06/18 05/14/24 acetaminophen 500 mg tablet 500 mg PO Q6H PRN 03/05/21 05/14/24 (Acetaminophen Extra Strength) ibuprofen 600 mg tablet 600 mg PO TID PRN 03/05/21 05/14/24 lidocaine 5 % topical patch 1 patch topical DAILY #30 ea 05/14/24 Previous Rx's ?Medication ?Instructions ?Recorded lidocaine 5 % topical patch 1 patch topical DAILY #30 ea 05/14/24 Allergies Allergy/AdvReac Type Severity Reaction Status Date / Time No Known Allergies Allergy Verified 05/14/24 07:46 General Stated Complaint: Chest/Rib JAVIER: 4 Review of Systems All systems reviewed & are unremarkable except as noted in HPI and below Constitutional Constitutional: Denies chills, Denies fever(s) and Denies weakness Cardiovascular Cardiovascular: Reports chest pain (s/p hit with 4x4 piece of lumber) and Denies dyspnea Respiratory Respiratory: Denies cough and Denies dyspnea Gastrointestinal Gastrointestinal: Denies abdominal pain, Denies nausea and Denies vomiting Neurologic Neurologic: Denies weakness Psychiatric Psychiatric: Denies depression Exam Const General: no acute distress Orientation: alert HENMT Head: normal to inspection Ears: external ears normal General nose exam: external nose normal Mouth: moist mucous membranes Eyes General: appearance normal, both eyes and all related structures Neck Neck: normal visual inspection Chest Chest: tenderness Resp Effort & Inspection: normal respiratory effort and able to speak in complete sentences Auscultation: clear to auscultation bilaterally Cardio Jugular venous pressure: no JVD Rate: regular rate Heart Sounds: no murmurs Skin General skin exam: no rashes or lesions noted Neuro General: patient alert and patient oriented x3 Extrem General: normal to inspection Psych Mental Status: mental status grossly normal Course Vital Signs Vital signs: Vital Signs Temperature 36.6 C 05/14/24 07:39 Pulse 54 L 05/14/24 07:39 Respiratory Rate 16 05/14/24 07:39 Blood Pressure 157/79 H 05/14/24 07:39 Pulse Oximetry 97 05/14/24 07:39 Temperature 36.6 C 05/14/24 07:39 Temperature Source Oral 05/14/24 07:39 Pulse 54 L 05/14/24 07:39 Respiratory Rate 16 05/14/24 07:39 Respiratory Effort Normal, Non-Labored 05/14/24 07:43 Respiratory Depth Normal 05/14/24 07:43 Respiratory Pattern Normal 05/14/24 07:43 Blood Pressure 157/79 H 05/14/24 07:39 Pulse Oximetry 97 05/14/24 07:39 Pain Level 9 05/14/24 07:43 Medical Decision Making 33-year-old male comes in with 3 days of right-sided rib pain. He says it started after he was working on a porch and 4 x 4 fell from the top of the porch approximately 6 feet hitting him on the right side of his ribs. He did not hit his head or sustain other injuries. He has right lateral rib pain since then so came in for evaluation. He has no head pain, neck pain, back pain, abdominal pain. He is alert in no distress on exam. He has reproducible tenderness in the right anterior axillary line over the 4th through 6th ribs. He has no abdominal tenderness. I suspect rib contusion but will obtain x-rays to evaluate for fracture. His lung sounds are clear so doubt pneumothorax X-ray is negative on radiology on my read as well. Patient is stable. Lidocaine patch. Suspect rib contusion, advised follow-up with his PCP on improving in a week. Differential Diagnosis Differential Diagnosis: Rib fracture, contusion, pneumothorax Quality:SDOH Health Related Social Needs: No Data to Display PFSH All Active Problems (Updated 05/14/24 @ 09:05 by Kishan Corea MD) Contusion of rib on right side (Acute) COVID-19 (Acute) Status post tooth extraction (Acute) Pain, dental (Acute) Substance use disorder (Acute) Hx of IVDU, Methadone through [facility] Pain, dental (Acute) Dental infection (Acute) Nausea & vomiting (Acute) Odontalgia (Acute) Dental infection (Acute) Hepatitis C infection (Chronic) Major depressive disorder (Chronic) Generalized anxiety disorder (Chronic) ADHD (attention deficit hyperactivity disorder) (Chronic) Surgical History History of left inguinal hernia repair at [facility] S/P tonsillectomy Family History Mother , at 47 of lung cancer COPD (chronic obstructive pulmonary disease) Lung cancer Father Bladder cancer COPD (chronic obstructive pulmonary disease) Brother No problems noted. Brother Substance abuse Asthma Brother Substance abuse Asthma Sister No problems noted. Sister No problems noted. Daughter No problems noted. Maternal Grandfather Asthma Maternal Grandmother Cancer Unknown type COPD (chronic obstructive pulmonary disease) Paternal Grandfather Stroke Heart disease Myocardial infarction Paternal Grandmother Stroke Social History Smoking/Tobacco Use Status: Current every day Tobacco Type: cigarettes Years smoked: 10 Tobacco: How many years used: 10 Smoking risk assessment performed?: Yes Alcohol Intake: former Drug use: Current Sobriety Substance use type: former substance user and marijuana Details: Goes to the Methadone clinic 1 x week Housing: apartment Do you feel safe at home: Yes Do you feel safe in your relationship?: Yes
[2024-05-14] MEDS: Ibuprofen 600 MG TAB PO (08:18)
[2024-05-14] MEDS: Acetaminophen 500 MG TAB 1000 MG PO (08:19)
[2024-05-14] MEDS: Lidocaine 5% Patch 1 PATCH TP (08:19)
--- NOTE | 2024-05-14 08:37 | DI.RAD_ITS ---
Exam(s) XR RIBS RT W PA LAT CHEST CLINICAL HISTORY: right sided rib pain. COMPARISON: CR XR CHEST 2V PA LATERAL from 04/10/2024 TECHNIQUE:: PA and lateral views of the chest and four views of the right ribs were performed. FINDINGS: LUNGS:Clear. The previously noted infiltrates have cleared. No pleural abnormality seen. HEART: Normal. MEDIASTINUM: Normal. BONES: No displaced rib fracture is seen. No bony destructive lesion is seen. OTHER FINDINGS: None. IMPRESSION: 1. Unremarkable radiographic appearance of the right ribs. 2. No acute pulmonary findings.
[2024-05-14 09:23] VITALS: BP 127/58; PULSE 47; RESP 16; O2SAT 98
== END 2024-05-14 09:24 | disposition home or self-care (01) ==
PROVIDERS: Emergency Provider Emergency Medicine; PCP Nurse Practitioner Family
DX: S20.211A Contusion of right front wall of thorax, initial encounter (principal); W20.8XXA Other cause of strike by thrown, projected or falling object, initial encounter; Y93.H3 Activity, building and construction; F17.210 Nicotine dependence, cigarettes, uncomplicated
CPT/HCPCS: 99283; 71046; 71100

== ENCOUNTER 2025-02-04 16:15 | Emergency (ER) | payer SELFPAY ==
[2025-02-04 16:19] VITALS: BP 151/92; PULSE 88; RESP 19; TEMP 36.9; O2SAT 95
--- NOTE | 2025-02-04 16:30 | DI.RAD_ITS ---
Exam(s) XR TIB/FIB LT EXAM: XR TIB/FIB LT CLINICAL HISTORY: Hatchet to manley midshaft, rule out fracture. TECHNIQUE: 2D digital imaging was performed of the left tibia and fibula. Two images were obtained. AP and lateral views were obtained. COMPARISON: No exams were available for comparison FINDINGS: BONES: No acute fracture is present. No bony destructive lesion is seen. Visualized portion of knee and ankle joints are unremarkable. There is a bone island in the proximal tibia. The lateral malleolus is not wholly included on this examination. SOFT TISSUE: There is a soft tissue defect in the medial aspect of the lower leg adjacent to the proximal diaphysis of the tibia. No radiopaque foreign bodies are seen. There are 2 tiny density seen on the lateral view anterior to the mid tibia which appear chronic. IMPRESSION: 1. No acute fracture or dislocation. 2. Soft tissue defect/laceration in the upper medial aspect of the lower leg. No radiopaque foreign body is seen. DATA REPOSITORY: RADIATION DOSE DELIVERED:
[2025-02-04] MEDS: Diph,Pertuss(Acell),Tet Vac/Pf 0.5 ML SYR IM (16:56)
[2025-02-04] MEDS: Lidocaine/Epinephri/Tetracaine Topical Gel 3 ML TP (16:57)
--- NOTE | 2025-02-04 17:56 | ED.GENADUL_ITS ---
Discharge Plan Disposition Patient Disposition: Home Condition: Good Discharge Details Clinical Impression: Laceration of manley Primary Care Provider: Unknown,Unknown ED Provider: Varun Morales Home Meds and New Rx's Prescriptions: New cephalexin 500 mg capsule 500 mg PO QID 5 Days Qty: 20 0RF No Action albuterol sulfate [ProAir HFA] 200 PUFF HFA aerosol inhaler 2 puff Inhalation PRN PRN methadone 10 MG/ML concentrate 65 mg PO DAILY acetaminophen [Acetaminophen Extra Strength] 500 mg Tablet 500 mg PO Q6H PRN ibuprofen 600 mg Tablet 600 mg PO TID PRN Discharge Instructions Instructions: Stitches and nette Additional Instructions: At this time the x-ray shows no evidence of fracture or foreign body. You have bruised and contused your bone quite significantly. Please use the crutches to stay off of it as it heals. Please take Tylenol and Motrin for pain. I have sent a prescription of a short course of antibiotics for you to take to help prevent any infections secondary to the nature of the injury. We have placed absorbable sutures for your laceration. Please keep the area clean and dry. Monitor closely for any redness, drainage or discharge. Absorbable sutures will come out on their own in 10 to 12 days. If they have not you can gently rub warm soapy water on the area to help them come off. For long-term scar cosmesis, please make sure to avoid any sun to the area for the next year. Apply moisturizer or vitamin E to the area twice daily for the next 12 months for the best chance of wound/scar medication. Please take a daily multivitamin as well as this can help in wound healing. If you notice any worsening of your symptoms, or any new symptoms such as vomiting, diarrhea, fever, chills, shortness of breath, chest pain, numbness, weakness, or fainting , please return immediately to the emergency department for reevaluation. Please follow up with your primary care provider as soon as possible for reassessment and reevaluation. As always, it was a pleasure participating in your medical care today. HPI General Date/Time Provider Initiated Documentation: 02/04/25 16:32 . HPI Narrative: 34-year-old male with a past medical history of hepatitis, depression, ADHD, who is currently homeless, presents for an injury to his left manley. He states that he was hammering in a tent post when the hatchet he was using slipped and hit into his manley. He subsequently had significant pain. He washed the area with hydrogen peroxide, and then came to the ER for further assessment. He admits to notable pain in the manley where the hatchet hit, he denies any numbness or tingling. No other complaints at this time. Pain is made worse with ambulation and weightbearing. Improved by rest. Related Data Home Medications ?Medication ?Instructions ?Recorded ?Confirmed albuterol sulfate 90 mcg/actuation 2 puff inhalation P RN PRN 09/18/13 02/04/25 aerosol inhaler (ProAir HFA) methadone 10 mg/mL oral concentrate 65 mg PO DAILY 02/04/25 acetaminophen 500 mg tablet 500 mg PO Q6H PRN 03/05/21 02/04/25 (Acetaminophen Extra Strength) ibuprofen 600 mg tablet 600 mg PO TID PRN 03/05/21 0 02/04/25 cephalexin 500 mg capsule 500 mg PO QID 5 days #20 cap s 02/04/25 Previous Rx's ?Medication ?Instructions ?Recorded cephalexin 500 mg capsule 500 mg PO QID 5 days #20 cap s 02/04/25 Allergies Allergy/AdvReac Type Severity Reaction Status Date / Time No Known Allergies Allergy Verified 02/04/25 16:18 General Stated Complaint: Laceration JAVIER: 3 Exam Narrative Exam Narrative: 1.Const: Well-nourished, Well-developed, appearing stated age 2.Eyes: PERRL, no conjunctival injection, and symmetrical lids. 3.ENT: Atraumatic external nose and ears. Moist MM. Neck: Symmetric, trachea midline, No thyromegaly. 4.CVS: +S1/S2, Peripheral pulses 2+ and equal in all extremities. Brisk capillary refill in all extremities. 5.RESP: Unlabored respiratory effort. Clear to auscultation bilaterally. No wheezes rales or rhonchi 6.GI: Soft, Nontender/Nondistended, No hepatosplenomegaly. No guarding or rebound. 7.MSK: Patient's left manley/tibia demonstrates tenderness at the midshaft with a hatchet came in contact with the bone. There is a small triangular-shaped laceration present, no active bleeding. No bony deformity. No fibular pain. No distal pain. No joint instability for the knee or the manley. 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 Sensation grossly intact, no focal neurologic deficits. 10.Psych: (AAO) x3. Appropriate mood and affect Course Vital Signs Vital signs: Vital Signs Temperature 36.9 C 02/04/25 16:19 Pulse 88 02/04/25 16:19 Respiratory Rate 19 02/04/25 16:19 Blood Pressure 151/92 H 02/04/25 16:19 Pulse Oximetry 95 02/04/25 16:19 Temperature 36.9 C 02/04/25 16:19 Temperature Source Oral 02/04/25 16:19 Pulse 88 02/04/25 16:19 Respiratory Rate 02/04/25 16:19 Blood Pressure 151/92 H 02/04/25 16:19 Blood Pressure Position Sitting 02/04/25 16:19 Pulse Oximetry 95 02/04/25 16:19 Oxygen Delivery Method Room Air 02/04/25 16:19 Oxygen Flow Rate 0 02/04/25 16:19 Pain Level 8 02/04/25 16:19 Procedure Laceration Laceration 1: Date of Procedure: 02/04/25 Time of procedure: 19:00 Provider that performed the procedure: Varun Morales Standard Time Out Performed: Yes Patient Consented: Verbally Site: lower extremity Side (If applicable): left Description: linear and clean Depth: simple, single layer Local anesthetic: Lidocaine 1% and with Epi Amount of anesthesia used (mL): 2 Pre-repair:: wound explored, irrigated extensively and deep structures intact Skin layer closed with: chromic gut Suture size: 5-0 Number of sutures:: 3 Technique: simple, interrupted Medical Decision Making 34-year-old male with a past medical history of hepatitis, depression, ADHD, who is currently homeless, presents for an injury to his left manley. He states that he was hammering in a tent post when the hatchet he was using slipped and hit into his manley. He subsequently had significant pain. He washed the area with hydrogen peroxide, and then came to the ER for further assessment. He admits to notable pain in the manley where the hatchet hit, he denies any numbness or tingling. No other complaints at this time. Pain is made worse with ambulation and weightbearing. Improved by rest. Exam demonstrates small laceration, notable tibial bony tenderness midshaft. X- ray shows no evidence of fracture. The area was cleaned aggressively with chlorhexidine, and then sutured with 3 simple interrupted chromic gut sutures. Patient tolerated this well. Tetanus was updated. Will give a short course of Keflex for infection prevention. Patient still has pain in the midshaft tibia with weightbearing, although there is no evidence of fracture, I would not be surprised if there is a mild periosteal defect secondary to the nature of the injury. Will give crutches for home use and recommend repeat x-ray if symptoms persist for 1 to 2 weeks. Discussed red flags for which to return. I have extensively reviewed the treatment plan and discharge instructions with the patient. I have addressed all patient concerns at this time. The patient was made aware of what symptoms to monitor for that would warrant a return to the emergency department. Discussed the plan with the patient, they demonstrate verbal understanding and agreement with our assessment and plan at this time. The documentation in this chart was dictated using [employer] dictation software. Please excuse any dictation errors. FINDINGS: BONES: No acute fracture is present. No bony destructive lesion is seen. Visualized portion of knee and ankle joints are unremarkable. There is a bone island in the proximal tibia. The lateral malleolus is not wholly included on this examination. SOFT TISSUE: There is a soft tissue defect in the medial aspect of the lower leg adjacent to the proximal diaphysis of the tibia. No radiopaque foreign bodies are seen. There are 2 tiny density seen on the lateral view anterior to the mid tibia which appear chronic. IMPRESSION: 1. No acute fracture or dislocation. 2. Soft tissue defect/laceration in the upper medial aspect of the lower leg. No radiopaque foreign body is seen. Quality:SDOH Health Related Social Needs: Health related social needs inadequate housing risk of homeless food insecurity transpo insecurity material hardship house/econ circumstance lonely/isolated education Health related social needs details Pt is currently ho margot. Has reached out to 211, has been homeless for a year. PFSH All Active Problems (Updated 02/04/25 @ 17:57 by Varun Morales DO) Laceration of manley (Acute) COVID-19 (Acute) Status post tooth extraction (Acute) Pain, dental (Acute) Substance use disorder (Acute) Hx of IVDU, Methadone through [facility] Pain, dental (Acute) Dental infection (Acute) Nausea & vomiting (Acute) Odontalgia (Acute) Dental infection (Acute) Hepatitis C infection (Chronic) Major depressive disorder (Chronic) Generalized anxiety disorder (Chronic) ADHD (attention deficit hyperactivity disorder) (Chronic) Surgical History History of left inguinal hernia repair at [facility] S/P tonsillectomy Family History Mother , at 47 of lung cancer COPD (chronic obstructive pulmonary disease) Lung cancer Father Bladder cancer COPD (chronic obstructive pulmonary disease) Brother No problems noted. Brother Substance abuse Asthma Brother Substance abuse Asthma Sister No problems noted. Sister No problems noted. Daughter No problems noted. Maternal Grandfather Asthma Maternal Grandmother Cancer Unknown type COPD (chronic obstructive pulmonary disease) Paternal Grandfather Stroke Heart disease Myocardial infarction Paternal Grandmother Stroke Social History Smoking/Tobacco Use Status: Current every day Tobacco Type: cigarettes Years smoked: 10 Tobacco: How many years used: 10 Smoking risk assessment performed?: Yes Alcohol Intake: former Drug use: Current Sobriety Substance use type: former substance user and marijuana Details: Goes to the Methadone clinic 1 x week Housing: homeless Do you feel safe at home: Yes Do you feel safe in your relationship?: Yes
--- NOTE | 2025-02-05 11:11 | NUR.NOTE ---
Accessed Pt chart to document on the [facility] paperwork the diagnosis
== END 2025-02-04 18:03 | disposition home or self-care (01) ==
PROVIDERS: Emergency Provider Student in an Organized Health Care Education/Training Program
DX: S81.812A Laceration without foreign body, left lower leg, initial encounter (principal); W22.8XXA Striking against or struck by other objects, initial encounter; Z23 Encounter for immunization; Z59.02 Unsheltered homelessness; Z59.41 Food insecurity; Z59.71 Insufficient health insurance coverage; Z59.89 Other problems related to housing and economic circumstances
CPT/HCPCS: 99283 ×2; 12001; 90471; 90715; 73590

== ENCOUNTER 2025-02-11 14:50 | Emergency (ER) | payer SELFPAY ==
[2025-02-11 15:11] VITALS: BP 131/73; PULSE 59; RESP 14; TEMP 36.7; O2SAT 98
--- NOTE | 2025-02-11 15:45 | DI.RAD_ITS ---
Exam(s) XR TIB/FIB LT EXAM: XR TIB/FIB LT CLINICAL HISTORY: struck by hatchet last week, felt pop today. TECHNIQUE: 2D digital imaging was performed. Two views. COMPARISON: CR XR TIB/FIB LT from 02/04/2025 FINDINGS: BONES: No acute fracture is present. No bony destructive lesion is seen. Bone island again noted in proximal tibia. Visualized portion of knee and ankle joints are unremarkable. SOFT TISSUE: Normal. IMPRESSION: Unremarkable radiographs of the left tibia and fibula. DATA REPOSITORY: RADIATION DOSE DELIVERED:
[2025-02-11] MEDS: Ibuprofen 600 MG TAB PO (16:02)
--- NOTE | 2025-02-11 16:04 | W.ED.GENAD ---
Discharge Plan Disposition Patient Disposition: Home Condition: Stable Discharge Details Clinical Impression: Pain in left manley Primary Care Provider: Unknown,Unknown ED Provider: Laurel Seay Home Meds and New Rx's Prescriptions: No Action albuterol sulfate [ProAir HFA] 200 PUFF HFA aerosol inhaler 2 puff Inhalation PRN PRN methadone 10 MG/ML concentrate 65 mg PO DAILY acetaminophen [Acetaminophen Extra Strength] 500 mg Tablet 500 mg PO Q6H PRN ibuprofen 600 mg Tablet 600 mg PO TID PRN Discharge Instructions Instructions: Leg Pain (ED) Additional Instructions: You were seen in the emergency department today for evaluation of leg pain. In our department you do full physical examination performed and a reassuring x-ray of your lower extremity. You likely have a contusion from your prior injury, that was aggravated and has become inflamed. I see no sign of infection at this time but do recommend that you continue to use ice and elevation as able for swelling management. Please use therapeutic dosing of Tylenol (acetaminophen) & Advil (ibuprofen) in an alternating fashion as follows: Take 1000mg of Tylenol every 6 hours without missing doses- that is 4 times per day. [place] in between the Tylenol doses, take 600mg of Advil also on a 6 hour schedule, that is also 4 times per day. With this strategy, you will be taking something for fever/pain as often as every 3 hours. The daily maximum dosing of Tylenol is 4000mg, and the daily maximum dosing of Advil is 2400mg. Please note that some common cold medications & prescription pain medications may contain acetaminophen and you need to read OTC drug labels and factor that in to maximum daily doses. You can use crutches to assist with ambulation, it is safe for you to put weight on your leg once your symptoms improve. Please follow-up with your primary care provider in the next few days to discuss this visit and any symptoms that change, worsen, or persist. Thank you for allowing us to be part of your care. Discharge Data Discharge Date/Time-TO BE ENTERED AT DEPARTURE: 02/11/25 17:19 HPI General Mode of arrival: wheelchair. Date/Time Provider Initiated Documentation: 02/11/25 14:50. Limitations to Documentation: no limitations. Information obtained by: patient and old records reviewed. HPI Narrative: This is a 34-year-old male patient presenting for evaluation of left lower leg pain. The patient was seen in our facility about a week ago after striking his anterior manley with a hatchet, had 3 absorbable sutures placed and states that he has been doing okay in terms of pain. Today he was stepping off the bus and when he came down on his left leg he had severe pain in the anterior manley around the sutures. He states that he felt a pop. He took some Tylenol without significant improvement and presented for evaluation. He states that his pain is in the manley and does not seem to be located distal to that, has noted some radiation up towards his knee but his knee itself is not very tender. Was worsened with ambulation. No sensory deficits distal to this injury. Denies weakness of the left lower extremity. Related Data Home Medications ?Medication ?Instructions ?Recorded ?Confirmed albuterol sulfate 90 mcg/actuation 2 puff inhalation PRN PRN 09/18/13 02/11/25 aerosol inhaler (ProAir HFA) methadone 10 mg/mL oral concentrate 65 mg PO DAILY 02/06/18 02/11/25 acetaminophen 500 mg tablet 500 mg PO Q6H PRN 03/05/21 02/11/25 (Acetaminophen Extra Strength) ibuprofen 600 mg tablet 600 mg PO TID PRN 03/05/21 02/11/25 Allergies Allergy/AdvReac Type Severity Reaction Status Date / Time No Known Allergies Allergy Verified 02/11/25 15:14 General Stated Complaint: Recheck JAVIER: 3 Exam Narrative Exam Narrative: Gen: Awake and alert, in no apparent distress HEENT: Non-icteric sclera Neck: Supple Lungs: No apparent respiratory distress, normal respiratory effort. CV: Appears well perfused Abdomen: Non-distended MSK: Moves 4 extremities without apparent limitation in ROM with the exception of the left lower extremity. The patient has tenderness to palpation around the anterior manley with some small swelling appreciated. I note no redness, induration, or purulent drainage. 3 sutures are well approximated, I note no hemorrhage or dehiscence of the wound. Knee and ankle are without deformity, tenderness, or limitation in range of motion, patient's left lower extremity is well-perfused distal to this injury with preserved strength and sensation. Skin: Visualized skin without rashes, cyanosis. Neuro: No obvious focal deficits or facial asymmetry. Speaks in full, clear sentences. Psych: Appropriate for situation. Course Vital Signs Vital signs: Vital Signs Temperature 36.7 C 02/11/25 15:11 Pulse 59 L 02/11/25 15:11 Respiratory Rate 14 02/11/25 15:11 Blood Pressure 131/73 02/11/25 15:11 Pulse Oximetry 98 02/11/25 15:11 Temperature 36.7 C 02/11/25 15:11 Temperature Source Oral 02/11/25 15:11 Pulse 59 L 02/11/25 15:11 Respiratory Rate 14 02/11/25 15:11 Blood Pressure 131/73 02/11/25 15:11 Pulse Oximetry 98 02/11/25 15:11 Oxygen Delivery Method Room Air 02/11/25 15:11 Oxygen Flow Rate 0 02/11/25 15:11 Pain Level 8 02/11/25 15:27 Medical Decision Making This is a 34-year-old male patient presented for evaluation of left lower leg pain. My differential includes but is not limited to hematoma, contusion, certainly considered osseous defect given my review of the prior providers note. Considered fracture and dislocation, no evidence for neurovascular derangement on my physical examination, and I did not note any significant surrounding cellulitic changes to suggest skin or soft tissue infection. I will provide the patient with a dose of ibuprofen, cold therapy, and we will obtain an x-ray of the tibia/fibula of the affected left side. - I independently reviewed the patient's x-ray, and note no fracture or other osseous abnormality. I do note a very small radiopaque foreign body, which may be dirt or debris from the initial injury. I do not see any surrounding soft tissue collection suggestive of abscess. The patient reports improvement in his symptoms but continues to have exacerbation of pain with weightbearing, for which crutches were provided. At this time, the patient has had a full medical evaluation and is safe for discharge to home. They are hemodynamically stable, ambulatory, and tolerating PO. They are understanding of the follow-up plan and return precautions. They left our facility without incident. Laurel Seay MD Quality:SDOH Health Related Social Needs: Health related social needs inadequate housing risk of homeless food insecurity transpo insecurity material hardship house/econ circumstance lonely/isolated education Health related social needs details Pt is currently homeless. Has reached out to 211, has been homeless for a year. PFSH All Active Problems (Updated 02/11/25 @ 16:59 by Laurel Seay MD) Pain in left manley (Acute) Laceration of manley (Acute) COVID-19 (Acute) Status post tooth extraction (Acute) Pain, dental (Acute) Substance use disorder (Acute) Hx of IVDU, Methadone through [facility] Pain, dental (Acute) Dental infection (Acute) Nausea & vomiting (Acute) Odontalgia (Acute) Dental infection (Acute) Hepatitis C infection (Chronic) Major depressive disorder (Chronic) Generalized anxiety disorder (Chronic) ADHD (attention deficit hyperactivity disorder) (Chronic) Surgical History History of left inguinal hernia repair at [facility] S/P tonsillectomy Family History Mother , at 47 of lung cancer COPD (chronic obstructive pulmonary disease) Lung cancer Father Bladder cancer COPD (chronic obstructive pulmonary disease) Brother No problems noted. Brother Substance abuse Asthma Brother Substance abuse Asthma Sister No problems noted. Sister No problems noted. Daughter No problems noted. Maternal Grandfather Asthma Maternal Grandmother Cancer Unknown type COPD (chronic obstructive pulmonary disease) Paternal Grandfather Stroke Heart disease Myocardial infarction Paternal Grandmother Stroke Social History Smoking/Tobacco Use Status: Current every day Tobacco Type: cigarettes Years smoked: 10 Tobacco: How many years used: 10 Smoking risk assessment performed?: Yes Alcohol Intake: former Drug use: Current Sobriety Substance use type: former substance user and marijuana Details: Goes to the Methadone clinic 1 x week Housing: homeless Do you feel safe at home: Yes Do you feel safe in your relationship?: Yes
[2025-02-11] MEDS: Ibuprofen 600 MG TAB, 6 TABS/BTL PO (17:06)
== END 2025-02-11 17:19 | disposition home or self-care (01) ==
PROVIDERS: Emergency Provider Emergency Medicine
DX: M79.662 Pain in left lower leg (principal)
CPT/HCPCS: 99283 ×2; 73590

== ENCOUNTER 2025-02-19 07:53 | Emergency (ER) | payer SELFPAY ==
[2025-02-19 08:02] VITALS: BP 149/98; PULSE 61; RESP 15; O2SAT 99
--- NOTE | 2025-02-19 08:15 | DI.US_ITS ---
Exam(s) US LOWER EXTREMITY VENOUS LT EXAM: US LOWER EXTREMITY VENOUS LT CLINICAL HISTORY: L manley/calf pain TECHNIQUE: Grayscale, color, and doppler imaging of the deep venous system of the left lower extremity was performed. COMPARISON: No exams were available for comparison FINDINGS: DVT: There is no evidence of intraluminal thrombus and there is normal compression and augmentation demonstrated within the common femoral vein, femoral vein, and popliteal vein. In the ipsilateral calf the interrogated veins also exhibit normal compression/ augmentation properties. The ipsilateral saphenofemoral junction is patent. OTHER: There is no evidence of obvious knee joint effusion. No abnormal fluid collection in the calf. IMPRESSION: 1. No evidence of DVT in the left lower extremity. 2. no other obvious focal ultrasound findings in the calf. If clinically indicated further study with MRI can be performed to determine if there tendon tears in this patient who apparently felt/heard a pop in the anterior aspect of the lower extremity. DATA REPOSITORY:
--- NOTE | 2025-02-19 08:20 | ED.GENADUL_ITS ---
Discharge Plan Disposition Patient Disposition: Home Discharge Details Clinical Impression: Knee pain Primary Care Provider: None,None ED Provider: Nimo Loyola Home Meds and New Rx's Prescriptions: No Action albuterol sulfate [ProAir HFA] 200 PUFF HFA aerosol inhaler 2 puff Inhalation PRN PRN methadone 10 MG/ML concentrate 65 mg PO DAILY acetaminophen [Acetaminophen Extra Strength] 500 mg Tablet 500 mg PO Q6H PRN ibuprofen 600 mg Tablet 600 mg PO TID PRN Discharge Instructions Additional Instructions: Please call your primary care provider's office first thing in the morning to schedule follow-up appointment. You can see any of the providers in the office. A referral to physical therapy may be indicated I have also placed a referral to orthopedics for you to have further evaluation into your knee pain/instability Your ultrasound of your lower leg was reassuring, there is no evidence of blood clot or other obvious ultrasound findings. Use the knee immobilizer to maintain nonweightbearing status. Elevate your leg above heart level to help with swelling and discomfort. You may continue to use ibuprofen 600 mg every 8 hours and acetaminophen 650 mg every 6 hours for pain. Keep an eye out for signs of infection to your wound such as increasing redness, swelling, pus drainage, pain. If you notice any of these, please seek care immediately. Referrals: [facility] [Provider Group] HPI General Date/Time Provider Initiated Documentation: 02/19/25 07:57 . HPI Narrative: Varun is a 34-year-old male with manley pain. Injured manley with a hammer when he was installing tent post 3 weeks ago. Initially felt like it was improving, was able to ambulate without difficulty. Last week, felt knee pop stepping off curb, causing pain and has been unable to bear weight without pain since then, feels like his knee is about the buckle. Noticed some swelling in his manley as well, possibly vein. Foot red upon waking, normalizes with movement. No pain above knee, fevers, or chills, general malaise, chest pain, shortness of breath, change in p.o. intake, or other systemic symptoms. Reports pain with knee extension and movement, especially active range of motion; also has tenderness to both sides of the manley. Concerned about tendon/muscle tear. No history of blood clots, cancer, recent surgeries/immobility, hormone use. No previous injury to this leg. Has been taking Tylenol and ibuprofen for discomfort, no medication today for symptoms. No history of gastrointestinal bleeding. He is currently unhoused, has a supportive fianc? at bedside Related Data Home Medications ?Medication ?Instructions ?Recorded ?Confirmed albuterol sulfate 90 mcg/actuation 2 puff inhalation P RN PRN 09/18/13 02/19/25 aerosol inhaler (ProAir HFA) methadone 10 mg/mL oral concentrate 65 mg PO DAILY 02/19/25 acetaminophen 500 mg tablet 500 mg PO Q6H PRN 03/05/21 02/19/25 (Acetaminophen Extra Strength) ibuprofen 600 mg tablet 600 mg PO TID PRN 03/05/21 0 02/19/25 Allergies Allergy/AdvReac Type Severity Reaction Status Date / Time No Known Allergies Allergy Verified 02/19/25 08:07 General Stated Complaint: Orthopedic JAVIER: 4 Exam Narrative Exam Narrative: General Appearance: Normal. Jose J was alert and oriented, no acute distress Vital signs: Within normal limits, elevated BP consistent with previous Respiratory: Easy work of breathing, able to speak in full sentences Back, Musculoskeletal: Tender medial left knee and manley. No knee joint laxity. Pain with knee extension; has full passive range of motion, but limited active range of motion. No muscle atrophy. Extremities: Distal pulses intact. + cms to toes Skin: 1 cm erythematous lesion to left medial manley, patient says this appears unchanged from previous, no drainage or wound dehiscence noted. No surrounding erythema or warmth, no obvious area of induration Psychiatric: Normal. Course Vital Signs Vital signs: Vital Signs Pulse 61 02/19/25 08:02 Respiratory Rate 15 02/19/25 08:02 Blood Pressure 149/98 H 02/19/25 08:02 Pulse Oximetry 99 02/19/25 08:02 Temperature Source Oral 02/19/25 08:02 Pulse 61 02/19/25 08:02 Respiratory Rate 15 02/19/25 08:02 Blood Pressure 149/98 H 02/19/25 08:02 Blood Pressure Position Sitting 02/19/25 08:02 Pulse Oximetry 99 02/19/25 08:02 Oxygen Delivery Method Room Air 02/19/25 08:02 Oxygen Flow Rate 0 02/19/25 08:02 Pain Level 8 02/19/25 08:02 Medical Decision Making Medical Records Medical records narrative: Initial Assessment: 34-year-old male with manley pain after injury 3 weeks ago. Knee pain and popping after stepping off curb last week. Swelling and foot discoloration. Differential Diagnosis includes but is not limited to: DVT or superficial venous thrombus, muscle tear, ligamentous injury, tendon injury. No red flags at this time concerning for abscess or cellulitis, as lesion is healing well and has not changed in appearance ED Course: - Ordered ultrasound for blood clot evaluation; no acute abnormality or blood clot noted - X-ray ordered to evaluate avulsion fracture in knee; this was also negative. Some slight irregularity of the patellar ligament noted above its attachment to the anterior tibial tubercle, may be related to position. A benign-appearing sclerotic bone lesion was noted in the proximal tibial diaphysis as well. - Ibuprofen and ice given for discomfort Final Assessment: Evaluated manley pain and knee discomfort, noted swelling and discoloration. Ordered ultrasound to rule out blood clot. Recommended follow-up for further evaluation and potential physical therapy. While in the emergency department Varun received ibuprofen, ice, and knee immobilizer for the pain. Crutches teaching provided Clinical Impression: - Left manley and medial knee pain Disposition: - Discharge: Home; advised follow-up with primary care for further evaluation. Referral placed for orthopedics follow-up - Follow-Up: Contact [facility] for further evaluation and management. Potential physical therapy. Patient consented to the use of [facility] Imaging Data Radiologic Study: Radiologist's impression: Exam(s) XR KNEE LT 4V AP,LAT,AKASH,PAT EXAM: XR KNEE LT 4V AP,LAT,AKASH,PAT CLINICAL HISTORY: medial knee pain. TECHNIQUE: 2D digital imaging was performed. COMPARISON: No exams were available for comparison FINDINGS: Four views No evidence of fracture nor prominent joint effusion. No degenerative changes evident. 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 No lytic bone lesions. There appears to be some slight irregularity in the patellar ligament shadow above the level of its attachment to the anterior tibial tubercle. This may just be related to positional buckling of the patellar ligament but correlation with clinical findings recommended IMPRESSION: No acute osseous findings in the left knee Benign-appearing sclerotic bone lesion in the proximal tibial diaphysis measuring 2 cm length by 0.6 cm wide. Soft tissue finding as above. Radiologic Study #2: Radiologist's impression: Exam(s) XR TIB/FIB LT EXAM: XR TIB/FIB LT CLINICAL HISTORY: L knee pain, wound to manley. TECHNIQUE: 2D digital imaging was performed. COMPARISON: CR XR TIB/FIB LT from 02/11/2025 FINDINGS: Two views No evidence of fracture. Benign-appearing sclerotic bone lesion is seen in the proximal diaphysis of the tibia. Subcutaneous density anteriorly in the mid upper calf is probably a phlebolith. There is no gas in the soft tissues. IMPRESSION: No acute osseous findings in the tibia and fibula. Benign-appearing nonexpansile sclerotic bone lesion seen proximally in the tibia. Radiologic Study #3: Radiologist's impression: Exam(s) US LOWER EXTREMITY VENOUS LT EXAM: US LOWER EXTREMITY VENOUS LT CLINICAL HISTORY: L manley/calf pain TECHNIQUE: Grayscale, color, and doppler imaging of the deep venous system of the left lower extremity was performed. COMPARISON: No exams were available for comparison FINDINGS: DVT: There is no evidence of intraluminal thrombus and there is normal compression and augmentation demonstrated within the common femoral vein, femoral vein, and popliteal vein. In the ipsilateral calf the interrogated veins also exhibit normal compression/ augmentation properties. The ipsilateral saphenofemoral junction is patent. OTHER: There is no evidence of obvious knee joint effusion. No abnormal fluid collection in the calf. IMPRESSION: 1. No evidence of DVT in the left lower extremity. 2. no other obvious focal ultrasound findings in the calf. If clinically indicated further study with MRI can be performed to determine if there tendon tears in this patient who apparently felt/heard a pop in the anterior aspect of the lower extremity. Quality:SDOH Health Related Social Needs: Health related social needs inadequate housing risk of homeless food insecurity transpo insecurity material hardship house/econ circumstance lo brett/isolated education Health related social needs details Pt is currently ho meless. Has reached out to 211, has been homeless for a year. PFSH All Active Problems (Updated 02/19/25 @ 14:16 by Nimo Busby) Knee pain (Acute) Pain in left manley (Acute) Laceration of manley (Acute) COVID-19 (Acute) Status post tooth extraction (Acute) Pain, dental (Acute) Substance use disorder (Acute) Hx of IVDU, Methadone through [facility] Pain, dental (Acute) Dental infection (Acute) Nausea & vomiting (Acute) Odontalgia (Acute) Dental infection (Acute) Hepatitis C infection (Chronic) Major depressive disorder (Chronic) Generalized anxiety disorder (Chronic) ADHD (attention deficit hyperactivity disorder) (Chronic) Surgical History History of left inguinal hernia repair at [facility] S/P tonsillectomy Family History Mother , at 47 of lung cancer COPD (chronic obstructive pulmonary disease) Lung cancer Father Bladder cancer COPD (chronic obstructive pulmonary disease) Brother No problems noted. Brother Substance abuse Asthma Brother Substance abuse Asthma Sister No problems noted. Sister No problems noted. Daughter No problems noted. Maternal Grandfather Asthma Maternal Grandmother Cancer Unknown type COPD (chronic obstructive pulmonary disease) Paternal Grandfather Stroke Heart disease Myocardial infarction Paternal Grandmother Stroke Social History Smoking/Tobacco Use Status: Current every day Tobacco Type: cigarettes Years smoked: 10 Tobacco: How many years used: 10 Smoking risk assessment performed?: Yes Alcohol Intake: former Drug use: Current Sobriety Substance use type: former substance user and marijuana Details: Goes to the Methadone clinic 1 x week Housing: homeless Do you feel safe at home: Yes Do you feel safe in your relationship?: Yes
[2025-02-19 08:27] VITALS: TEMP 37.3
[2025-02-19] MEDS: Ibuprofen 600 MG TAB PO (08:37)
--- NOTE | 2025-02-19 09:30 | DI.RAD_ITS ---
Exam(s) XR TIB/FIB LT EXAM: XR TIB/FIB LT CLINICAL HISTORY: L knee pain, wound to manley. TECHNIQUE: 2D digital imaging was performed. COMPARISON: CR XR TIB/FIB LT from 02/11/2025 FINDINGS: Two views No evidence of fracture. Benign-appearing sclerotic bone lesion is seen in the proximal diaphysis of the tibia. Subcutaneous density anteriorly in the mid upper calf is probably a phlebolith. There is no gas in the soft tissues. IMPRESSION: No acute osseous findings in the tibia and fibula. Benign-appearing nonexpansile sclerotic bone lesion seen proximally in the tibia. DATA REPOSITORY: RADIATION DOSE DELIVERED:
--- NOTE | 2025-02-19 09:30 | DI.RAD_ITS ---
Exam(s) XR KNEE LT 4V AP,LAT,AKASH,PAT EXAM: XR KNEE LT 4V AP,LAT,AKASH,PAT CLINICAL HISTORY: medial knee pain. TECHNIQUE: 2D digital imaging was performed. COMPARISON: No exams were available for comparison FINDINGS: Four views No evidence of fracture nor prominent joint effusion. No degenerative changes evident. 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 No lytic bone lesions. There appears to be some slight irregularity in the patellar ligament shadow above the level of its attachment to the anterior tibial tubercle. This may just be related to positional buckling of the patellar ligament but correlation with clinical findings recommended IMPRESSION: No acute osseous findings in the left knee Benign-appearing sclerotic bone lesion in the proximal tibial diaphysis measuring 2 cm length by 0.6 cm wide. Soft tissue finding as above. DATA REPOSITORY: RADIATION DOSE DELIVERED:
[2025-02-19 14:47] VITALS: BP 139/77; PULSE 56; TEMP 36.4; O2SAT 99
== END 2025-02-19 14:55 | disposition home or self-care (01) ==
PROVIDERS: Emergency Provider Nurse Practitioner Family
DX: M25.562 Pain in left knee (principal); Z59.10 Inadequate housing, unspecified; Z59.41 Food insecurity; Z59.811 Housing instability, housed, with risk of homelessness; Z59.87 Material hardship due to limited financial resources, not elsewhere classified; Z59.9 Problem related to housing and economic circumstances, unspecified; Z59.00 Homelessness unspecified
CPT/HCPCS: 99283; 99284; 29505; 73564; 73590; 93971